=== PATIENT | female | born 1935 | race African-American/Black ===

== ENCOUNTER 2017-02-17 05:46 | Emergency (ER) | payer MEDICARE, MEDICAID ==
--- NOTE | 2017-02-17 07:14 | ER Document Report ---
ED General - General Chief Complaint: Headache Stated Complaint: HEADACHE Time Seen by Provider: 02/17/17 06:38 TRAVEL OUTSIDE OF THE [place] IN LAST 30 DAYS: No - HPI Patient complains to provider of: Headache Notes: Patient coming in for evaluation of a headache. Patient has a history of dementia and is on pain medication. Family states the patient received her pain medication prior to EMS transport during the transport patient states headache resolved. Denies any history of trauma. Patient denies any history of fevers chills nausea vomiting diarrhea. Upon my evaluation, states patient is otherwise baseline at this time. She is currently on antibiotic for UTI diagnosed at her PCPs office a few days prior to arrival - Related Data Allergies/Adverse Reactions: No Known Allergies Allergy (Unverified 02/07/15 09:40) Home Medications: Current Home Medications Apixaban [Eliquis 2.5 mg Tablet] 2.5 mg PO BID 02/17/17 [History] Furosemide [Lasix] 40 mg PO DAILY 02/17/17 [History] Montelukast Sodium 10 mg PO QPM 02/17/17 [History] Nitrofurantoin Monohyd/M-Cryst [Nitrofurantoin [place]-Mcr 100 mg] 1 cap PO Q12H [History] Tramadol HCl/Acetaminophen [Ultracet 37.5 mg/325 mg Tablet] 1 tab PO Q6H [History] Past Medical History - Social History Smoking Status: Former Smoker Chew tobacco use (# tins/day): No Frequency of alcohol use: None Drug Abuse: None Family History: Reviewed & Not Pertinent - Past Medical History Cardiac Medical History: Reports: Hx Atrial Fibrillation, Hx Congestive Heart Failure, Hx Hypertension GI Medical History: Reports: Hx Hiatal Hernia Musculoskeltal Medical History: Reports Hx Arthritis Psychiatric Medical History: Reports: Hx Dementia Past Surgical History: Reports: Hx Section - x2. Denies: Hx Mastectomy , Hx Open Heart Surgery, Hx Pacemaker - Immunizations Immunizations up to date: Yes Hx Diphtheria, Pertussis, Tetanus Vaccination: Yes Review of Systems - Review of Systems -: Yes ROS unobtainable due to patient's medical condition - Dementia Physical Exam - Vital signs Vitals: Temp Pulse Resp BP Pulse Ox 97.8 F 62 16 146/78 H 95 02/17/17 05:50 02/17/17 05:50 02/17/17 05:50 02/17/17 05:50 02/17/17 05:50 Interpretation: Normal - General General appearance: Appears well, Alert - HEENT Head: Normocephalic, Atraumatic Eyes: Normal Pupils: PERRL - Respiratory Respiratory status: No respiratory distress Chest status: Nontender Breath sounds: Normal Chest palpation: Normal - Cardiovascular Rhythm: Regular Heart sounds: Normal auscultation Murmur: No - Abdominal Inspection: Normal Distension: No distension Bowel sounds: Normal Tenderness: Nontender Organomegaly: No organomegaly - Back Back: Normal, Nontender - Extremities General upper extremity: Normal inspection, Nontender, Normal color, Normal ROM , Normal temperature General lower extremity: Normal inspection, Nontender, Normal color, Normal ROM , Normal temperature, Normal weight bearing. No: Joselin's sign - Neurological Neuro grossly intact: Yes Cognition: Normal, Confused Bradley Coma Scale Eye Opening: Spontaneous Kelsy Coma Scale Verbal: Confused Kelsy Coma Scale Motor: Obeys Commands Bradley Coma Scale Total: 14 Speech: Normal Motor strength normal: LUE, RUE, LLE, RLE Sensory: Normal - Psychological Associated symptoms: Normal affect, Normal mood - Skin Skin Temperature: Warm Skin Moisture: Dry Skin Color: Normal Course - Re-evaluation Re-evalutation: 02/17/17 14:34 The patient presents with headache without signs of LABELING SPECIALIST bleed, stroke, infection , or other serious etiology. The patient is neurologically intact. Given the extremely low risk of these diagnoses further testing and evaluation for these possibilities does not appear to be indicated at this time. The patient has been instructed to return if the symptoms worsen or change in any way.. Patient examination otherwise normal patient has not had any pain stating that she had a headache since she has been here patient was observed no need for any further workup patient was discharged - Vital Signs Vital signs: Temp Pulse Resp BP Pulse Ox 97.9 F 65 20 124/65 97 02/17/17 07:38 02/17/17 07:38 02/17/17 07:38 02/17/17 07:38 02/17/17 07:38 Discharge - Discharge Clinical Impression: Headache Qualifiers: Headache type: unspecified Headache chronicity pattern: unspecified pattern Intractability: not intractable Qualified Code(s): R51 - Headache Condition: Good Disposition: HOME, SELF-CARE Instructions: Headache ([facility]) Additional Instructions: Please continue to take her home medications as prescribed. Follow-up with your doctor Referrals: KEVIN BRANNON MD [Primary Care Provider] - Follow up as needed
[2017-02-17 07:39] VITALS: BP 124/65
== END 2017-02-17 07:40 | disposition home or self-care (01) ==
LOC: ER 05:46
DX: R51 Headache (principal); Z79.899 Other long term (current) drug therapy; Z87.891 Personal history of nicotine dependence
CPT/HCPCS: 99283

== ENCOUNTER 2017-02-18 08:31 | Inpatient (IN) | payer MEDICARE, MEDICAID ==
[2017-02-18] MEDS ORDERED: ASPIRIN 300 MG SUPP, RECTAL PR ONE (08:48)
--- NOTE | 2017-02-18 08:57 | ER Document Report ---
ED Cardiac - General Chief Complaint: Shortness Of Breath Stated Complaint: DIFFICULTY BREATHING Time Seen by Provider: 02/18/17 08:43 Mode of Arrival: Medic Information source: Relative Notes: Is an 81-year-old female with atrial fibrillation who presents to the ER today for shortness of breath, respiratory distress brought in by EMS. Patient started having shortness of breath at 4:30 AM this morning. Daughter found her this morning having breathing difficulty with white foam coming out of her mouth and nose. Patient has no history of seizures and denies having seizure during the night. Patient was seen here yesterday for headache, it is unclear if this is related. Patient is still complaining of mild headache to the front and back of her head. She also states that she had some left arm pain 3 days ago but denies any other symptoms with that and says that that is resolved at this time. She does not have any history of asthma, COPD, CHF per daughter. She is not on any breathing treatments, inhalers or oxygen at home usually. She has never had a heart attack or stroke. EMS picked her up to 83% on room air. She denies chest pain, abdominal pain or anywhere else other than the head. Family denies that she has had fever. TRAVEL OUTSIDE OF THE [place] IN LAST 30 DAYS: No - Related Data Allergies/Adverse Reactions: No Known Allergies Allergy (Unverified 02/07/15 09:40) Past Medical History - General Information source: Patient - Social History Smoking Status: Former Smoker Family History: Reviewed & Not Pertinent - Past Medical History Cardiac Medical History: Reports: Hx Atrial Fibrillation, Hx Congestive Heart Failure, Hx Hypertension GI Medical History: Reports: Hx Hiatal Hernia Musculoskeltal Medical History: Reports Hx Arthritis Psychiatric Medical History: Reports: Hx Dementia Past Surgical History: Reports: Hx Section - x2. Denies: Hx Mastectomy , Hx Open Heart Surgery, Hx Pacemaker - Immunizations Immunizations up to date: Yes Hx Diphtheria, Pertussis, Tetanus Vaccination: Yes Review of Systems - Review of Systems Constitutional: See HPI. denies: Chills, Fever EENT: No symptoms reported Cardiovascular: No symptoms reported Respiratory: See HPI Gastrointestinal: No symptoms reported Genitourinary: No symptoms reported Female Genitourinary: No symptoms reported Musculoskeletal: No symptoms reported Skin: No symptoms reported Hematologic/Lymphatic: No symptoms reported Neurological/Psychological: See HPI Physical Exam - Vital signs Vitals: Resp 25 H 02/18/17 08:34 - Notes Notes: PHYSICAL EXAMINATION: GENERAL: In respiratory distress, on CPAP HEAD: Atraumatic, normocephalic. EYES: Pupils equal round and reactive to light, extraocular movements intact, sclera anicteric, conjunctiva are normal. ENT: nares patent, oropharynx clear without exudates. Moist mucous membranes. Airway patent NECK: Normal range of motion, supple without lymphadenopathy LUNGS: Rales throughout, working harder to breathe, using accessory muscles, no wheezes or rhonchi. HEART: Tachycardia with regular rhythm without murmurs ABDOMEN: Soft, no tenderness. No guarding, no rebound EXTREMITIES: Normal range of motion, no pitting edema. No cyanosis. NEUROLOGICAL: Cranial nerves grossly intact. Normal sensory/motor exams. SKIN: Warm, Dry, normal turgor, very large stage II pressure ulcer to the entire buttocks and posterior thighs Course - Re-evaluation Re-evalutation: 02/18/17 13:01 Dr. Hall called to admit pt for sepsis, awaiting callback. I believe pt may have aspirated in her sleep and may have aspiration pneumonia due to daughter stating that with foam coming out of her nose and mouth when she found her. Chest x-ray revealed no acute abnormality, EKG did have some ST depression , possibly from demand ischemia, ABG revealed a normal pH, patient doing better on BiPAP with a pulse in the low 100s now instead of 128 when she came in. Her abdomen is nontender. She received rectal Tylenol for her fever of 101F rectally. 02/18/17 13:13 Dr. Hall agrees to admit pt at this time for sepsis with WBC of 20.5, lactic of 2.4 and other labs noted above. 02/18/17 14:07 troponin is 0.4, Dr. Paul and myself believe that this is just demand ischemia as she came in in respiratory distress and denies any chest pain. Her initial EKG revealed some ST depression, but repeat EKG that was just performed does not have any ST depression and looks much better. I believe the next troponin will be lower as this was likely demand ischemia as mentioned. - Vital Signs Vital signs: Temp Pulse Resp BP Pulse Ox 101 F H 120 H 22 H 132/98 H 100 02/18/17 09:50 02/18/17 08:36 02/18/17 15:03 02/18/17 14:00 02/18/17 15:03 - Laboratory Result Diagrams: 02/18/17 11:45 02/18/17 12:28 Laboratory results interpreted by me: 02/18/17 02/18/17 02/18/17 09:55 10:04 11:45 WBC 20.9 H Hgb 15.7 H Hct 47.6 H MCV 99 H RDW 14.1 H Band Neutrophils % 6 H Abs Neuts (Manual) 16.3 H Carbonic Acid 0.99 L ABG pCO2 32.8 L ABG pO2 191.3 H ABG O2 Saturation 99.4 H Sodium Chloride BUN Glucose Lactic Acid Calcium Creatine Kinase NT-Pro-B Natriuret Pep Urine Protein 100 H Urine Ketones 20 H Urine Blood LARGE H 02/18/17 02/18/17 02/18/17 11:45 12:28 12:28 WBC Hgb Hct MCV RDW Band Neutrophils % Abs Neuts (Manual) Carbonic Acid ABG pCO2 ABG pO2 ABG O2 Saturation Sodium 146.2 H Chloride 108 H BUN 23 H Glucose 123 H Lactic Acid 2.4 H Calcium 11.0 H Creatine Kinase 192 H NT-Pro-B Natriuret Pep 1040 H Urine Protein Urine Ketones Urine Blood Critical Care Note - Critical Care Note Total time excluding time spent on procedures (mins): 45 - 45 minutes spent in critical care time with patient, consulted with attending, speaking with family , placing orders and evaluating tests and labs. Discharge - Discharge Clinical Impression: Respiratory distress Sepsis Qualifiers: Sepsis type: sepsis due to unspecified organism Qualified Code(s): A41.9 - Sepsis, unspecified organism Condition: Stable Disposition: ADMITTED INPATIENT Admitting Provider: [facility] Unit Admitted: [facility]
--- NOTE | 2017-02-18 09:16 | RADIOLOGY REPORT (SQ) ---
EXAM DESCRIPTION: CHEST SINGLE VIEW COMPLETED DATE/TIME: 02/18/2017 9:08 am REASON FOR STUDY: sob, ST depressions COMPARISON: 08/21/2015 EXAM PARAMETERS: NUMBER OF VIEWS: One view. TECHNIQUE: Single frontal radiographic view of the chest acquired. RADIATION DOSE: NA LIMITATIONS: None. FINDINGS: LUNGS AND PLEURA: Stable dependent subsegmental atelectasis and/ or scarring at the left g reater than right lung base. No new airspace disease, pleural effusion, or pneumothorax. MEDIASTINUM AND HILAR STRUCTURES: No masses. Contour normal. HEART AND VASCULAR STRUCTURES: Heart normal in size. Normal vasculature. BONES: No acute findings. HARDWARE: Stable. OTHER: No other significant finding. IMPRESSION: NO ACUTE CARDIOPULMONARY PROCESS. NO SIGNIFICANT CHANGE FROM PRIOR STUDY. TECHNICAL DOCUMENTATION: JOB ID: [id number]
[2017-02-18] MEDS ORDERED: NORMAL SALINE 1000 ML 1,000 ML IV ONE (09:56)
[2017-02-18] MEDS ORDERED: PIPERACILLIN/TAZOBACTAM 3.375 GM VIAL IV ONE (09:56)
[2017-02-18 10:26] LABS: ARTERIAL BLOOD BASE EXCESS -1.9 mmol/L; ARTERIAL BLOOD O2 SATURATION 99.4 % (94-98)
[2017-02-18 11:04] LABS: APPEARANCE,URINE SLIGHTLY-CLOUDY; BILIRUBIN,URINE NEGATIVE (NEGATIVE); GLUCOSE, URINE NEGATIVE (NEGATIVE); KETONES,URINE 20 mg/dL (NEGATIVE); LEUKOCYTE ESTERASE,URINE NEGATIVE (NEGATIVE); NITRITE,URINE NEGATIVE (NEGATIVE); PROTEIN,URINE 100 mg/dL (NEGATIVE); URINE SPECIFIC GRAVITY 1.027; UROBILINOGEN,URINE NEGATIVE mg/dL (<2.0)
[2017-02-18] MEDS: ACETAMINOPHEN 650 MG SUPP.RECT PR ONE (11:30)
[2017-02-18 12:08] LABS: HEMATOCRIT 47.6 % (36.0-47.0); HEMOGLOBIN 15.7 g/dL (12.0-15.5); HGB HCT DIFFERENCE -0.5; MEAN CORPUSCULAR HEMOGLOBIN 32.5 pg (27.0-33.4); MEAN CORPUSCULAR HGB CONC 32.9 g/dL (32.0-36.0); MEAN CORPUSCULAR VOLUME 99 fl (80-97); RED BLOOD COUNT 4.82 10^6/uL (3.72-5.28); RED CELL DISTRIBUTION WIDTH 14.1 % (11.5-14.0); WHITE BLOOD COUNT 20.9 10^3/uL (4.0-10.5)
[2017-02-18 12:22] LABS: BAND NEUTROPHILS % (MANUAL) 6 % (3-5); BASOPHILS % (MANUAL) 0 % (0-2); EOSINOPHILS % (MANUAL) 0 % (0-6); LYMPHOCYTES % (MANUAL) 18 % (13-45); TOTAL CELLS COUNTED 100
[2017-02-18 12:24] LABS: BURR CELLS SLIGHT; OVALOCYTES SLIGHT; POIKILOCYTOSIS 1+
[2017-02-18 12:57] LABS: ALANINE AMINOTRANSFERASE 23 U/L (9-52); ALKALINE PHOSPHATASE 94 U/L (38-126); ANION GAP 15 (5-19); ASPARTATE AMINO TRANSFERASE 32 U/L (14-36); BILIRUBIN,DIRECT 0.4 mg/dL (0.0-0.4); BILIRUBIN,TOTAL 0.9 mg/dL (0.2-1.3); BLOOD UREA NITROGEN 23 mg/dL (7-20); CARBON DIOXIDE 23 mmol/L (22-30); CHLORIDE 108 mmol/L (98-107); CREATINE KINASE 192 U/L (30-135); GLUCOSE 123 mg/dL (75-110); POTASSIUM 3.6 mmol/L (3.6-5.0); SODIUM 146.2 mmol/L (137-145)
[2017-02-18] MEDS ORDERED: LEVOFLOXACIN 500 MG/D5W RTU 100 ML IV ONE (13:00)
[2017-02-18 13:20] LABS: CREATINE KINASE MB 2.65 ng/mL (<4.55)
[2017-02-18 13:26] LABS: TROPONIN I 0.486 ng/mL
--- NOTE | 2017-02-18 13:28 | RADIOLOGY REPORT (SQ) ---
EXAM DESCRIPTION: CT HEAD WITHOUT COMPLETED DATE/TIME: 02/18/2017 1:20 pm REASON FOR STUDY: headache, sepsis COMPARISON: 10/11/2014 TECHNIQUE: Axial images acquired through the brain without intravenous contrast. Images reviewed wi th bone, brain and subdural windows. Images stored on PACS. All CT scanners at this facility use dose modulation, iterative reconstruction, and/or weight based d osing when appropriate to reduce radiation dose to as low as reasonably achievable (ALARA). [facility]: Dose Right [facility]: CareDose [facility]: Dose Right [facility]: Teradose 4D [facility]: [employer] RADIATION DOSE: 129.22mGy. LIMITATIONS: None. FINDINGS: VENTRICLES: Prominent. CEREBRUM: No masses. No hemorrhage. No midline shift. Areas of low density in the white matter mos t likely due to chronic micro-vascular ischemic change. No evidence for acute infarction. CEREBELLUM: No masses. No hemorrhage. No alteration of density. No evidence for acute infarction. EXTRAAXIAL SPACES: Age-related involutional change. No fluid collections. No masses. ORBITS AND GLOBE: No intra- or extraconal masses. Normal contour of globe without masses. CALVARIUM: No fracture. PARANASAL SINUSES: No fluid or mucosal thickening. SOFT TISSUES: No mass or hematoma. OTHER: No other significant finding. IMPRESSION: NO ACUTE INTRACRANIAL PROCESS. NO SIGNIFICANT CHANGE FROM PRIOR STUDY. TECHNICAL DOCUMENTATION: JOB ID: [id number] Quality ID # [id number]: Final reports with documentation of one or more dose reduction techniques (e.g., Au tomated exposure control, adjustment of the mA and/or kV according to patient size, use of iterative reconstruction technique) 2010 [employer]- All Rights Reserved
[2017-02-18] MEDS ORDERED: DOCUSATE SODIUM 100 MG CAPSULE PO PRN (16:19)
[2017-02-18 16:48] LABS: PROTHROMBIN TIME 16.9 SEC (11.4-15.4)
[2017-02-18 16:49] LABS: PARTIAL THROMBOPLASTIN TIME 30.4 SEC (23.5-35.8)
[2017-02-18] MEDS ORDERED: METOPROLOL SUCCINATE 50 MG TAB.SR.24H PO ONE (17:00)
--- NOTE | 2017-02-18 17:27 | RADIOLOGY REPORT (SQ) ---
EXAM DESCRIPTION: CT CHEST WITHOUT COMPLETED DATE/TIME: 02/18/2017 5:04 pm REASON FOR STUDY: sepsis COMPARISON: Chest radiographs 02/18/[address] 10/13/2014 TECHNIQUE: CT scan performed of the chest without intravenous contrast. Images reviewed with lung, soft tissue and bone windows. Reconstructed coronal and sagittal MPR images reviewed. All images st ored on PACS. All CT scanners at this facility use dose modulation, iterative reconstruction, and/or weight based d osing when appropriate to reduce radiation dose to as low as reasonably achievable (ALARA). [facility]: Dose Right [facility]: CareDose [facility]: Dose Right [facility]: Teradose 4D [facility]: [employer] RADIATION DOSE: 13.99 mGy. LIMITATIONS: No technical limitations. FINDINGS: LUNGS AND PLEURA: Left lower lobe consolidation. Trace dependent atelectasis on the right . No pleural effusion. No pneumothorax. HILAR AND MEDIASTINAL STRUCTURES: 5.5 x 4.9 x 7.8 cm right paratracheal mass shifting the trachea to the left; this appears to be on the basis of a greatly expanded right thyroid lobe. Precarinal lymph node measures up to 9 mm in the short axis. HEART AND VASCULAR STRUCTURES: No aneurysm. No pericardial effusion. UPPER ABDOMEN: Small hiatal hernia. No significant findings. Limited exam. THYROID AND OTHER SOFT TISSUES: Right thyroid mass as detailed above. No adenopathy. BONES: No significant finding. HARDWARE: None in the chest. OTHER: No other significant findings. IMPRESSION: 1. Left lower lobe consolidation. In the appropriate clinical setting, this may repres ent lobar pneumonia. 2. Re- demonstration of a right thyroid mass, which appears similar to that seen on 10/13/2014 CT imag ing. TECHNICAL DOCUMENTATION: JOB ID: [id number] Quality ID # [id number]: Final reports with documentation of one or more dose reduction techniques (e.g., Au tomated exposure control, adjustment of the mA and/or kV according to patient size, use of iterative reconstruction technique) 2010 [employer]- All Rights Reserved
[2017-02-18] MEDS ORDERED: LEVOFLOXACIN 500 MG/D5W RTU 500 MG/100 ML RTUPB IV ONE (17:35)
[2017-02-18] MEDS: APIXABAN 2.5 MG TABLET PO SCH (17:48)
[2017-02-18] MEDS: MEGESTROL ACETATE 20 MG TABLET PO SCH (17:51)
[2017-02-18] MEDS ORDERED: AMPICILLIN SODIUM/SULBACTAM NA 3 GM in NORMAL SALINE 100 ML IV SCH (18:00)
[2017-02-18 18:13] LABS: ALANINE AMINOTRANSFERASE 36 U/L (9-52); ALBUMIN 3.7 g/dL (3.5-5.0); ALKALINE PHOSPHATASE 84 U/L (38-126); AMYLASE 175 U/L (30-110); ASPARTATE AMINO TRANSFERASE 22 U/L (14-36); BILIRUBIN,DIRECT 0.4 mg/dL (0.0-0.4); BILIRUBIN,TOTAL 0.8 mg/dL (0.2-1.3); LIPASE 458.5 U/L (23-300); PHOSPHORUS 3.5 mg/dL (2.5-4.5); TOTAL PROTEIN 7.2 g/dL (6.3-8.2)
[2017-02-18 18:29] LABS: CREATINE KINASE MB 2.22 ng/mL (<4.55)
[2017-02-18 18:36] LABS: TROPONIN I 0.281 ng/mL
[2017-02-18 18:47] LABS: THYROID STIMULATING HORMONE 0.24 uIU/mL (0.47-4.68)
[2017-02-18 19:49] LABS: URINE BARBITURATES SCREEN NEGATIVE; URINE METHADONE SCREEN NEGATIVE; URINE OPIATES LOW NEGATIVE; URINE PHENCYCLIDINE SCREEN NEGATIVE
[2017-02-18] MEDS: DONEPEZIL HCL 5 MG TABLET PO SCH (21:08)
[2017-02-18] MEDS: ALPRAZOLAM 0.5 MG TABLET PO SCH (21:09)
[2017-02-18] MEDS ORDERED: CEFEPIME 1 GM/D5W RTU 50 ML IV SCH (22:00)
[2017-02-19] MEDS: LEVOFLOXACIN 750 MG/D5W RTU 750 MG/150 ML RTUPB IV SCH ×2 (00:02→23:46)
[2017-02-19] MEDS: TRAMADOL HCL 50 MG TABLET PO SCH ×5 (00:05→23:48)
[2017-02-19] MEDS ORDERED: CEFEPIME 1 GM/D5W RTU 1 GM/50 ML RTUPB IV ONE (00:10)
[2017-02-19 01:00] LABS: CREATINE KINASE MB 1.73 ng/mL (<4.55); TROPONIN I 0.19 ng/mL
[2017-02-19 06:11] LABS: ABSOLUTE EOSINOPHILS # (AUTO) 0.1 10^3/uL (0.0-0.6); ABSOLUTE LYMPHOCYTES (AUTO) 3.6 10^3/uL (0.5-4.7); ABSOLUTE MONOCYTES (AUTO) 1.1 10^3/uL (0.1-1.4); ABSOLUTE NEUT (AUTO) 11.4 10^3/uL (1.7-8.2); BASOPHILS % (AUTO) 0.3 % (0-2); EOSINOPHILS % (AUTO) 0.4 % (0-6); HEMATOCRIT 36.5 % (36.0-47.0); HGB HCT DIFFERENCE -0.2; LYMPHOCYTES % (AUTO) 22.4 % (13-45); MEAN CORPUSCULAR HEMOGLOBIN 32.4 pg (27.0-33.4); MEAN CORPUSCULAR HGB CONC 33.1 g/dL (32.0-36.0); MEAN CORPUSCULAR VOLUME 98 fl (80-97); MONOCYTES % (AUTO) 6.5 % (3-13); RED BLOOD COUNT 3.73 10^6/uL (3.72-5.28); RED CELL DISTRIBUTION WIDTH 13.5 % (11.5-14.0); SEGMENTED NEUTROPHILS % (AUTO) 70.4 % (42-78); WHITE BLOOD COUNT 16.2 10^3/uL (4.0-10.5)
[2017-02-19 06:18] LABS: HEMOGLOBIN 12.1 g/dL (12.0-15.5)
[2017-02-19 06:24] LABS: ANION GAP 10 (5-19); BLOOD UREA NITROGEN 21 mg/dL (7-20); CALCIUM 9.9 mg/dL (8.4-10.2); CARBON DIOXIDE 20 mmol/L (22-30); CHLORIDE 111 mmol/L (98-107); CREATINE KINASE 147 U/L (30-135); CREATININE RESULT 0.47 mg/dL (0.52-1.25); GLUCOSE 90 mg/dL (75-110); POTASSIUM 3.7 mmol/L (3.6-5.0); SODIUM 141.4 mmol/L (137-145)
[2017-02-19] MEDS: APIXABAN 2.5 MG TABLET PO SCH ×2 (06:27→17:59)
[2017-02-19] MEDS: ALPRAZOLAM 0.5 MG TABLET PO SCH ×3 (06:28→21:40)
[2017-02-19 06:36] LABS: CREATINE KINASE MB 1.26 ng/mL (<4.55); TROPONIN I 0.142 ng/mL
[2017-02-19] MEDS: MEGESTROL ACETATE 20 MG TABLET PO SCH ×2 (09:57→18:00)
[2017-02-19] MEDS: METOPROLOL SUCCINATE 50 MG TAB.SR.24H PO SCH (09:57)
[2017-02-19] MEDS: CEFEPIME HCL 1 GM in DEXTROSE 5%-WATER 50 ML IV SCH ×2 (09:58→21:39)
[2017-02-19] MEDS: NORMAL SALINE 1000 ML 1,000 ML IV PRN (09:59)
--- NOTE | 2017-02-19 11:47 | PDOC H&P ---
History of Present Illness Admission Date/PCP: 02/18/17 16:07 KEVIN BRANNON MD History of Present Illness: MAGDALENO NAVAS is a 81 year old female with a history of dementia, she presented to the emergency room for evaluation of shortness of breath, respiratory distress ,family stated that patient was having shortness of breath associated with white foam coming out of her mouth and nose. She has no history of seizure , she was seen in the emergency room yesterday for evaluation of headache, CT head was done and it was negative. Patient was transferred from home to the emergency room by EMS ,the oxygen saturation was 83% on room air. In the Emergency room chest x-ray was done and it was negative for any acute pathology.Hemogram showed leukocytosis, WBC was 20,000, there was lactic acidosis ,she also had fever with 101 temperature. The presentation was consistent with pneumonia though the chest x-ray did not suggest pneumonia, but because the presentation was consistent with pneumonia I requested for CT chest without contrast. 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 She has multiple comorbid conditions including chronic debilitation, chronic atrial fibrillation, sedentary life style. On examination on the floor she has sacral decubiti ulcer in various stages. when she arrived in the emergency room, the breathing was supported with noninvasive positive pressure ventilation, BiPAP machine, she was still requiring the device when she arrived in intermediate care unit. Past Medical History Cardiac Medical History: Reports: Atrial Fibrillation, Hypertension GI Medical History: Reports: Hiatal Hernia Musculoskeltal Medical History: Reports: Arthritis Psychiatric Medical History: Reports: Dementia Past Surgical History Past Surgical History: Reports: Section - x2 Social History Smoking Status: Former Smoker Frequency of Alcohol Use: None Hx Recreational Drug Use: No Hx Prescription Drug Abuse: No - Advance Directive Resuscitation Status: Full Code Family History Family History: Reviewed & Not Pertinent Parental Family History Reviewed: Yes Children Family History Reviewed: Yes Sibling(s) Family History Reviewed.: Yes Medication/Allergy Home Medications: Alprazolam [Xanax 0.5 mg Tablet] 0.5 mg PO TID 02/18/17 Apixaban [Eliquis 2.5 mg Tablet] 2.5 mg PO Q12 02/18/17 Dexlansoprazole [Dexilant 30 mg Capsule] 30 mg PO DAILY 02/18/17 Diclofenac Sodium [Voltaren] 4 gm TP ASDIR PRN 02/18/17 Docusate Sodium [Dok] 100 mg PO DAILYP PRN 02/18/17 Donepezil HCl [Aricept] 10 mg PO QHS 02/18/17 Ketotifen Fumarate [Zaditor] 5 ml OP BID 02/18/17 Loratadine [Claritin 10 mg Tablet] 10 mg PO DAILY 02/18/17 Megestrol Acetate 40 mg PO BID 02/18/17 Metoprolol Succinate [Toprol Xl 50 mg Tab.sr] 50 mg PO DAILY 02/18/17 Mirtazapine [Remeron] 30 mg PO QHS 02/18/17 Montelukast Sodium [Singulair 10 mg Tablet] 10 mg PO QHS 02/18/17 Nitrofurantoin Monohyd/M-Cryst [Nitrofurantoin Real-Mcr 100 mg] 100 mg PO Q12 Tramadol HCl/Acetaminophen [Tramadol-Acetaminophn 37.5-325] 1 tab PO Q6 Allergies/Adverse Reactions: No Known Allergies Allergy (Unverified 02/07/15 09:40) Review of Systems ROS unobtainable: Other - She has dementia, she just yells scream, difficult to obtain any reasonable history from the patient Physical Exam Vital Signs: Temp Pulse Resp BP Pulse Ox 98.4 F 80 20 115/70 100 02/19/17 08:38 02/19/17 08:38 02/19/17 08:38 02/19/17 08:38 02/19/17 08:38 Intake & Output 02/18/17 02/19/17 02/20/17 06:59 06:59 06:59 Intake Total 1200 Output Total 325 Balance 875 Weight 74.6 kg General appearance: PRESENT: severe distress Eye exam: PRESENT: PERRLA Neck exam: PRESENT: thyromegaly, tracheal deviation Respiratory exam: PRESENT: crackles Cardiovascular exam: PRESENT: +S1, +S2 GI/Abdominal exam: PRESENT: soft Extremities exam: PRESENT: other - There Is sacral decubital ulcer in various stages ,stage 1 and 2 Musculoskeletal exam: PRESENT: other - There is muscle atrophy of the lower extremities Neurological exam: PRESENT: alert, CN II-XII grossly intact Psychiatric exam: PRESENT: agitated Skin exam: PRESENT: erythema - The skin of the buttock Results Laboratory Results: 02/19/17 06:04 02/19/17 06:04 02/18/17 02/18/17 02/18/17 16:27 16:27 17:18 WBC RBC Hgb Hct MCV MCH MCHC RDW Plt Count Seg Neutrophils % Lymphocytes % Monocytes % Eosinophils % Basophils % Absolute Neutrophils Absolute Lymphocytes Absolute Monocytes Absolute Eosinophils Absolute Basophils Sodium Potassium Chloride Carbon Dioxide Anion Gap BUN Creatinine Est GFR ( Amer) Est GFR (Non-Af Amer) Glucose Lactic Acid 2.4 H Calcium Phosphorus Cancelled Total Bilirubin Cancelled AST Cancelled ALT Cancelled Alkaline Phosphatase Cancelled Total Protein Cancelled Albumin Cancelled Amylase Cancelled Lipase Cancelled TSH 0.24 L Free T4 1.10 02/18/17 02/19/17 02/19/17 17:18 06:04 06:04 WBC 16.2 H RBC 3.73 Hgb 12.1 D Hct 36.5 MCV 98 H MCH 32.4 MCHC 33.1 RDW 13.5 Plt Count 263 Seg Neutrophils % 70.4 Lymphocytes % 22.4 Monocytes % 6.5 Eosinophils % 0.4 Basophils % 0.3 Absolute Neutrophils 11.4 H Absolute Lymphocytes 3.6 Absolute Monocytes 1.1 Absolute Eosinophils 0.1 Absolute Basophils 0.0 Sodium 141.4 Potassium 3.7 Chloride 111 H Carbon Dioxide 20 L Anion Gap 10 BUN 21 H Creatinine 0.47 L Est GFR ( Amer) > 60 Est GFR (Non-Af Amer) > 60 Glucose 90 Lactic Acid Calcium 9.9 Phosphorus 3.5 Total Bilirubin 0.8 AST 22 ALT 36 Alkaline Phosphatase 84 Total Protein 7.2 Albumin 3.7 Amylase 175 H Lipase 458.5 H TSH Free T4 02/18/17 02/18/17 02/18/17 17:18 17:18 23:40 Creatine Kinase 200 H 172 H CK-MB (CK-2) 2.22 Troponin I 0.281 02/18/17 02/19/17 02/19/17 23:40 06:04 06:04 Creatine Kinase 147 H CK-MB (CK-2) 1.73 1.26 Troponin I 0.190 0.142 Impressions: Chest CT 02/18/17 00:00 IMPRESSION: 1. Left lower lobe consolidation. In the appropriate clinical setting, this may represent lobar pneumonia. 2. Re- demonstration of a right thyroid mass, which appears similar to that seen on 10/13/2014 CT imaging. Chest X-Ray 02/18/17 08:45 IMPRESSION: NO ACUTE CARDIOPULMONARY PROCESS. NO SIGNIFICANT CHANGE FROM PRIOR STUDY. Head CT 02/18/17 11:55 IMPRESSION: NO ACUTE INTRACRANIAL PROCESS. NO SIGNIFICANT CHANGE FROM PRIOR STUDY. Assessment & Plan - Diagnosis (1) Acute hypoxemic respiratory failure Is this a current diagnosis for this admission?: YesPlan: Patient presented with acute hypoxemic respiratory failure due to combination of left lower lobe pneumonia and thyroid mass compressing and shifting the trachea. She will continue the noninvasive positive pressure ventilation with BiPAP machine. (2) Left lower lobe pneumonia Qualifiers: Pneumonia type: due to unspecified organism Qualified Code(s): J18.1 - Lobar pneumonia, unspecified organism Is this a current diagnosis for this admission?: YesPlan: She has pneumonia, patient will be covered with dual antibiotic, IV cefepime and IV Levaquin to cover potential community-acquired pathogens that causes pneumonia. 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
--- NOTE | 2017-02-19 11:56 | PDOC PROGRESS REPORT ---
Subjective Progress Note for:: 02/19/17 Subjective:: Patient was seen by the bedside, she was admitted yesterday for pneumonia associated acute hypoxemic respiratory failure. She also had elevated troponin this is most likely related to the pneumonia and sepsis I had a discussion with the daughter about patient's condition. Physical Exam Vital Signs: Temp Pulse Resp BP Pulse Ox 98.4 F 80 20 115/70 100 02/19/17 08:38 02/19/17 08:38 02/19/17 08:38 02/19/17 08:38 02/19/17 08:38 Intake & Output 02/18/17 02/19/17 02/20/17 06:59 06:59 06:59 Intake Total 1200 Output Total 325 Balance 875 Weight 74.6 kg General appearance: PRESENT: no acute distress Eye exam: PRESENT: PERRLA Respiratory exam: PRESENT: clear to auscultation danitza Cardiovascular exam: PRESENT: +S1, +S2 GI/Abdominal exam: PRESENT: soft Neurological exam: PRESENT: alert Results Laboratory Results: 02/19/17 06:04 02/19/17 06:04 02/18/17 02/18/17 02/18/17 16:27 16:27 17:18 WBC RBC Hgb Hct MCV MCH MCHC RDW Plt Count Seg Neutrophils % Lymphocytes % Monocytes % Eosinophils % Basophils % Absolute Neutrophils Absolute Lymphocytes Absolute Monocytes Absolute Eosinophils Absolute Basophils Sodium Potassium Chloride Carbon Dioxide Anion Gap BUN Creatinine Est GFR ( Amer) Est GFR (Non-Af Amer) Glucose Lactic Acid 2.4 H Calcium Phosphorus Cancelled Total Bilirubin Cancelled AST Cancelled ALT Cancelled Alkaline Phosphatase Cancelled Total Protein Cancelled Albumin Cancelled Amylase Cancelled Lipase Cancelled TSH 0.24 L Free T4 1.10 02/18/17 02/19/17 02/19/17 17:18 06:04 06:04 WBC 16.2 H RBC 3.73 Hgb 12.1 D Hct 36.5 MCV 98 H MCH 32.4 MCHC 33.1 RDW 13.5 Plt Count 263 Seg Neutrophils % 70.4 Lymphocytes % 22.4 Monocytes % 6.5 Eosinophils % 0.4 Basophils % 0.3 Absolute Neutrophils 11.4 H Absolute Lymphocytes 3.6 Absolute Monocytes 1.1 Absolute Eosinophils 0.1 Absolute Basophils 0.0 Sodium 141.4 Potassium 3.7 Chloride 111 H Carbon Dioxide 20 L Anion Gap 10 BUN 21 H Creatinine 0.47 L Est GFR ( Amer) > 60 Est GFR (Non-Af Amer) > 60 Glucose 90 Lactic Acid Calcium 9.9 Phosphorus 3.5 Total Bilirubin 0.8 AST 22 ALT 36 Alkaline Phosphatase 84 Total Protein 7.2 Albumin 3.7 Amylase 175 H Lipase 458.5 H TSH Free T4 02/18/17 02/18/17 02/18/17 17:18 17:18 23:40 Creatine Kinase 200 H 172 H CK-MB (CK-2) 2.22 Troponin I 0.281 02/18/17 02/19/17 02/19/17 23:40 06:04 06:04 Creatine Kinase 147 H CK-MB (CK-2) 1.73 1.26 Troponin I 0.190 0.142 Impressions: Chest CT 02/18/17 00:00 IMPRESSION: 1. Left lower lobe consolidation. In the appropriate clinical setting, this may represent lobar pneumonia. 2. Re- demonstration of a right thyroid mass, which appears similar to that seen on 10/13/2014 CT imaging. Chest X-Ray 02/18/17 08:45 IMPRESSION: NO ACUTE CARDIOPULMONARY PROCESS. NO SIGNIFICANT CHANGE FROM PRIOR STUDY. Head CT 02/18/17 11:55 IMPRESSION: NO ACUTE INTRACRANIAL PROCESS. NO SIGNIFICANT CHANGE FROM PRIOR STUDY. Assessment & Plan - Diagnosis (1) Acute hypoxemic respiratory failure Is this a current diagnosis for this admission?: Yes (2) Left lower lobe pneumonia Qualifiers: Pneumonia type: due to unspecified organism Qualified Code(s): J18.1 - Lobar pneumonia, unspecified organism Is this a current diagnosis for this admission?: Yes (3) Thyroid mass Is this a current diagnosis for this admission?: Yes (4) Dementia Qualifiers: Dementia type: Alzheimer's disease Alzheimer's disease onset: late- onset Dementia behavioral disturbance: with behavioral disturbance Qualified Code(s): G30.1 - Alzheimer's disease with late onset; F02.81 - Dementia in other diseases classified elsewhere with behavioral disturbance Is this a current diagnosis for this admission?: Yes (5) Decubitus ulcer of sacral region, stage 1 Is this a current diagnosis for this admission?: Yes (6) Chronic atrial fibrillation Is this a current diagnosis for this admission?: Yes (7) Elevated troponin Is this a current diagnosis for this admission?: YesPlan: This is related to sepsis and pneumonia (8) Sepsis Qualifiers: Sepsis type: sepsis due to unspecified organism Qualified Code(s): A41.9 - Sepsis, unspecified organism Is this a current diagnosis for this admission?: Yes - Plan Summary Plan Summary: She will continue IV antibiotic, oxygen via nasal cannula, consultation will be requested from surgery regarding the thyroid mass. She is not good candidate for surgery
--- NOTE | 2017-02-19 14:04 | CONSULTATION REPORT E ---
Consultation Report NAME: MAGDALENO NAVAS : 1935 AGE: 81Y DATE: 02/19/2017 ROOM: 321 B TO: KIRK CUTLER M.D. FROM: KEVIN BRANNON M.D. Requesting Physician REASON FOR CONSULTATION: Patient with a right thyroid mass, shifting the trachea to the left. HISTORY OF PRESENT ILLNESS: This is an 81-year-old female admitted for pneumonia and sepsis. She has a history of dementia, chronic debilitation, chronic A-fib, sacral decubitus, and noted right lower lobe pneumonia on CAT scan. 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 This apparently has been noted since 2014 with no apparent change in size. According to the daughter, the patient does not have any difficulty breathing other than when she was admitted yesterday with some foam in her mouth and she might have aspirated this, producing the pneumonia. Other than this episode, no difficulty breathing or shortness of breath. PAST MEDICAL HISTORY: 1. History of mild dementia. 2. Chronic A-fib. 3. Hypertension. 4. Hiatal hernia. 5. Arthritis. 6. Starting Alzheimer's. 7. Sacral decubitus. SOCIAL HISTORY: She used to smoke, but had stopped around age 41. Denies alcohol or drug use. PAST SURGICAL HISTORY: Two sections. ALLERGIES: None known. REVIEW OF SYSTEMS: Review of systems is quite limited, because most of it is given by the daughter, who claims she has neck pains and joint pains and in the past 2 weeks has been debilitated. She had, in the past, a history of urinary tract infection. No apparent constipation. The patient did have an episode of diarrhea about 4 days ago and this had subsided when given some [id number] medication by her daughter. Patient apparently has been bedridden and her daughter has been taking care of her for this. ALLERGIES: None known. PHYSICAL EXAMINATION: GENERAL: The patient is alert, but slow to respond. Appears to be oriented. NECK: She has pains on moving her neck. She did have discomfort just trying to take out the pillow from her neck, so I could examine her neck. The palpable right thyroid mass appears to be just slightly pushing the trachea to the left. LUNGS: Decreased breath sounds on the right side. HEART: Regular sinus rhythm. ABDOMEN: Soft and nontender. EXTREMITIES: No edema. DIAGNOSTIC DATA: A 5.5 x 4.9 x 7.2 cm right paratracheal mass, shifting the trachea to the left on a CAT scan. However, this has been the same as that seen in 10/13/2014. Her labs showed lactic acid 2.4. White count 16.2. She has sepsis from pneumonia. IMPRESSION: Right thyroid mass pushing the trachea to the left. However, this appears to be asymptomatic according to the patient and her daughter. She did have a history of left thyroid lobectomy done around 40 years ago. RECOMMENDATIONS: Since the mass apparently has not changed for just over 2 years, it is unlikely that it is malignant. Since the patient is asymptomatic with this mass and with her overall comorbidities and with the starting Alzheimer's, it is probably not necessary to further interrogate this mass and assess for malignancy. The main thing is to just observe it. If she develops stridor or difficulty breathing, then she may need a thyroidectomy. At this time, it is asymptomatic and this can be just observed. DICTATING PHYSICIAN: KIRK CUTLER M.D. [id number] PHY#: [id number] ID: [id number] JOB#: [id number] ACCT: [id number] cc:KIRK CUTLER M.D. >
--- NOTE | 2017-02-19 14:33 | RADIOLOGY REPORT (SQ) ---
EXAM DESCRIPTION: U/S THYROID/SFT TISS HD NECK COMPLETED DATE/TIME: 02/19/2017 2:22 pm REASON FOR STUDY: thyroid mass COMPARISON: 10/10/2011 TECHNIQUE: Dynamic and static mota-scale images acquired of the thyroid gland. Selected additional c olor/power Doppler images recorded. All images stored to PACS. LIMITATIONS: None. FINDINGS: RIGHT LOBE: Stable nodular enlargement of the right thyroid gland measuring 7.3 x 5.0 x 4 .3 cm. LEFT LOBE: Surgically absent. ISTHMUS: Stable nodule measuring 2.8 x 2.5 x 1.6 cm. OTHER: No other significant finding. IMPRESSION: STABLE NODULAR ENLARGEMENT OF THE RIGHT LOBE OF THE THYROID GLAND AND STABLE ISTHMUS NOD ULE. STATUS POST LEFT THYROIDECTOMY. TECHNICAL DOCUMENTATION: JOB ID: [id number] GIVTED- All Rights Reserved
[2017-02-19] MEDS: DONEPEZIL HCL 5 MG TABLET PO SCH (21:39)
[2017-02-19] MEDS: ACETAMINOPHEN 325 MG TABLET PO SCH (23:48)
[2017-02-20] MEDS: NORMAL SALINE 1000 ML 1,000 ML IV PRN (02:42)
[2017-02-20] MEDS: ACETAMINOPHEN 325 MG TABLET PO SCH ×4 (05:26→23:32)
[2017-02-20] MEDS: ALPRAZOLAM 0.5 MG TABLET PO SCH ×3 (05:27→21:36)
[2017-02-20] MEDS: TRAMADOL HCL 50 MG TABLET PO SCH ×4 (05:27→23:32)
[2017-02-20] MEDS: APIXABAN 2.5 MG TABLET PO SCH ×2 (05:28→17:40)
[2017-02-20 06:47] LABS: ABSOLUTE BASOPHILS # (AUTO) 0.2 10^3/uL (0.0-0.2); ABSOLUTE EOSINOPHILS # (AUTO) 0.3 10^3/uL (0.0-0.6); ABSOLUTE LYMPHOCYTES (AUTO) 4.8 10^3/uL (0.5-4.7); ABSOLUTE MONOCYTES (AUTO) 1.5 10^3/uL (0.1-1.4); ABSOLUTE NEUT (AUTO) 9.5 10^3/uL (1.7-8.2); EOSINOPHILS % (AUTO) 1.6 % (0-6); HEMATOCRIT 39.9 % (36.0-47.0); HEMOGLOBIN 12.9 g/dL (12.0-15.5); HGB HCT DIFFERENCE -1.2; LYMPHOCYTES % (AUTO) 29.7 % (13-45); MEAN CORPUSCULAR HEMOGLOBIN 32.3 pg (27.0-33.4); MEAN CORPUSCULAR HGB CONC 32.4 g/dL (32.0-36.0); MEAN CORPUSCULAR VOLUME 100 fl (80-97); MONOCYTES % (AUTO) 9.3 % (3-13); RED CELL DISTRIBUTION WIDTH 13.9 % (11.5-14.0); SEGMENTED NEUTROPHILS % (AUTO) 58.4 % (42-78); WHITE BLOOD COUNT 16.3 10^3/uL (4.0-10.5)
--- NOTE | 2017-02-20 09:27 | EKG REPORT ---
SEVERITY:- NORMAL ECG - SINUS RHYTHM : Confirmed by: Derrell Yung 20-Feb-2017 09:26:58
--- NOTE | 2017-02-20 09:28 | EKG REPORT ---
SEVERITY:- BORDERLINE ECG - SINUS TACHYCARDIA BORDERLINE ST DEPRESSION, ANTEROLATERAL LEADS : Confirmed by: Derrell Yung 20-Feb-2017 09:27:51
[2017-02-20] MEDS: CEFEPIME HCL 1 GM in DEXTROSE 5%-WATER 50 ML IV SCH ×2 (09:32→21:36)
[2017-02-20] MEDS: METOPROLOL SUCCINATE 50 MG TAB.SR.24H PO SCH (09:34)
[2017-02-20] MEDS: MEGESTROL ACETATE 20 MG TABLET PO SCH ×2 (09:35→17:42)
[2017-02-20 09:53] LABS: ANION GAP 15 (5-19); BLOOD UREA NITROGEN 13 mg/dL (7-20); CALCIUM 9.3 mg/dL (8.4-10.2); CARBON DIOXIDE 18 mmol/L (22-30); CHLORIDE 112 mmol/L (98-107); CREATININE RESULT 0.37 mg/dL (0.52-1.25); GLUCOSE 108 mg/dL (75-110); POTASSIUM 3.5 mmol/L (3.6-5.0); SODIUM 144.8 mmol/L (137-145)
--- NOTE | 2017-02-20 19:39 | PDOC PROGRESS REPORT ---
Subjective Progress Note for:: 02/20/17 Subjective:: She was admitted because of pneumonia, she was seen by the bedside Physical Exam Vital Signs: Temp Pulse Resp BP Pulse Ox 97.4 F 70 16 129/65 H 100 02/20/17 07:35 02/20/17 14:00 02/20/17 09:05 02/20/17 07:35 02/20/17 09:30 Intake & Output 02/19/17 02/20/17 02/21/17 06:59 06:59 06:59 Intake Total 1200 2614 1872 Output Total 325 1000 800 Balance 875 1614 1072 Weight 74.6 kg 78.3 kg General appearance: PRESENT: no acute distress Eye exam: PRESENT: PERRLA Respiratory exam: PRESENT: rhonchi Cardiovascular exam: PRESENT: +S1, +S2 GI/Abdominal exam: PRESENT: soft Neurological exam: PRESENT: alert, CN II-XII grossly intact Results Laboratory Results: 02/20/17 06:21 02/20/17 09:20 02/20/17 02/20/17 02/20/17 06:21 06:35 09:20 WBC 16.3 H RBC 4.00 Hgb 12.9 Hct 39.9 MCV 100 H MCH 32.3 MCHC 32.4 RDW 13.9 Plt Count 199 Seg Neutrophils % 58.4 Lymphocytes % 29.7 Monocytes % 9.3 Eosinophils % 1.6 Basophils % 1.0 Absolute Neutrophils 9.5 H Absolute Lymphocytes 4.8 H Absolute Monocytes 1.5 H Absolute Eosinophils 0.3 Absolute Basophils 0.2 Sodium Cancelled 144.8 Potassium Cancelled 3.5 L Chloride Cancelled 112 H Carbon Dioxide Cancelled 18 L Anion Gap Cancelled 15 BUN Cancelled 13 Creatinine Cancelled 0.37 L Est GFR ( Amer) Cancelled > 60 Est GFR (Non-Af Amer) Cancelled > 60 Glucose Cancelled 108 Calcium Cancelled 9.3 02/18/17 02/18/17 02/18/17 17:18 17:18 23:40 Creatine Kinase 200 H 172 H CK-MB (CK-2) 2.22 Troponin I 0.281 02/18/17 02/19/17 02/19/17 23:40 06:04 06:04 Creatine Kinase 147 H CK-MB (CK-2) 1.73 1.26 Troponin I 0.190 0.142 Impressions: Chest CT 02/18/17 00:00 IMPRESSION: 1. Left lower lobe consolidation. In the appropriate clinical setting, this may represent lobar pneumonia. 2. Re- demonstration of a right thyroid mass, which appears similar to that seen on 10/13/2014 CT imaging. Chest X-Ray 02/18/17 08:45 IMPRESSION: NO ACUTE CARDIOPULMONARY PROCESS. NO SIGNIFICANT CHANGE FROM PRIOR STUDY. Head CT 02/18/17 11:55 IMPRESSION: NO ACUTE INTRACRANIAL PROCESS. NO SIGNIFICANT CHANGE FROM PRIOR STUDY. Thyroid Ultrasound 02/19/17 00:00 IMPRESSION: STABLE NODULAR ENLARGEMENT OF THE RIGHT LOBE OF THE THYROID GLAND AND STABLE ISTHMUS NODULE. STATUS POST LEFT THYROIDECTOMY. Assessment & Plan - Diagnosis (1) Acute hypoxemic respiratory failure Is this a current diagnosis for this admission?: YesPlan: Continue oxygen via nasal cannula (2) Left lower lobe pneumonia Qualifiers: Pneumonia type: due to unspecified organism Qualified Code(s): J18.1 - Lobar pneumonia, unspecified organism Is this a current diagnosis for this admission?: YesPlan: Continue IV antibiotic (3) Thyroid mass Is this a current diagnosis for this admission?: Yes (4) Dementia Qualifiers: Dementia type: Alzheimer's disease Alzheimer's disease onset: late- onset Dementia behavioral disturbance: with behavioral disturbance Qualified Code(s): G30.1 - Alzheimer's disease with late onset; F02.81 - Dementia in other diseases classified elsewhere with behavioral disturbance Is this a current diagnosis for this admission?: Yes (5) Decubitus ulcer of sacral region, stage 1 Is this a current diagnosis for this admission?: Yes (6) Chronic atrial fibrillation Is this a current diagnosis for this admission?: Yes (7) Elevated troponin Is this a current diagnosis for this admission?: Yes (8) Sepsis Qualifiers: Sepsis type: sepsis due to unspecified organism Qualified Code(s): A41.9 - Sepsis, unspecified organism Is this a current diagnosis for this admission?: Yes
[2017-02-20] MEDS ORDERED: POTASSIUM CHLORIDE 10 MEQ TABLET.SA PO ONE (20:00)
[2017-02-20] MEDS: DONEPEZIL HCL 5 MG TABLET PO SCH (21:36)
[2017-02-20] MEDS: LEVOFLOXACIN 750 MG/D5W RTU 750 MG/150 ML RTUPB IV SCH (23:28)
[2017-02-21] MEDS: NORMAL SALINE 1000 ML 1,000 ML IV PRN (02:11)
[2017-02-21 05:35] LABS: ANION GAP 10 (5-19); BLOOD UREA NITROGEN 12 mg/dL (7-20); CALCIUM 9.7 mg/dL (8.4-10.2); CARBON DIOXIDE 22 mmol/L (22-30); CHLORIDE 112 mmol/L (98-107); GLUCOSE 80 mg/dL (75-110); POTASSIUM 4.2 mmol/L (3.6-5.0); SODIUM 144.1 mmol/L (137-145)
[2017-02-21 05:57] LABS: ABSOLUTE BASOPHILS # (AUTO) 0.1 10^3/uL (0.0-0.2); ABSOLUTE EOSINOPHILS # (AUTO) 0.2 10^3/uL (0.0-0.6); ABSOLUTE LYMPHOCYTES (AUTO) 3.9 10^3/uL (0.5-4.7); ABSOLUTE MONOCYTES (AUTO) 0.7 10^3/uL (0.1-1.4); ABSOLUTE NEUT (AUTO) 6.1 10^3/uL (1.7-8.2); BASOPHILS % (AUTO) 0.7 % (0-2); EOSINOPHILS % (AUTO) 1.9 % (0-6); HEMATOCRIT 34.1 % (36.0-47.0); HEMOGLOBIN 11.2 g/dL (12.0-15.5); HGB HCT DIFFERENCE -0.5; LYMPHOCYTES % (AUTO) 35.5 % (13-45); MEAN CORPUSCULAR HEMOGLOBIN 32.4 pg (27.0-33.4); MEAN CORPUSCULAR HGB CONC 32.8 g/dL (32.0-36.0); MEAN CORPUSCULAR VOLUME 99 fl (80-97); MONOCYTES % (AUTO) 6.6 % (3-13); RED BLOOD COUNT 3.45 10^6/uL (3.72-5.28); RED CELL DISTRIBUTION WIDTH 13.9 % (11.5-14.0); SEGMENTED NEUTROPHILS % (AUTO) 55.3 % (42-78); WHITE BLOOD COUNT 11.1 10^3/uL (4.0-10.5)
[2017-02-21] MEDS: ACETAMINOPHEN 325 MG TABLET PO SCH ×3 (06:36→18:02)
[2017-02-21] MEDS: TRAMADOL HCL 50 MG TABLET PO SCH ×3 (06:36→18:01)
[2017-02-21] MEDS: ALPRAZOLAM 0.5 MG TABLET PO SCH ×3 (06:37→21:16)
[2017-02-21] MEDS: APIXABAN 2.5 MG TABLET PO SCH ×2 (06:37→18:02)
[2017-02-21] MEDS: MEGESTROL ACETATE 20 MG TABLET PO SCH ×2 (09:51→18:03)
[2017-02-21] MEDS: METOPROLOL SUCCINATE 50 MG TAB.SR.24H PO SCH (09:51)
[2017-02-21] MEDS: CEFEPIME HCL 1 GM in DEXTROSE 5%-WATER 50 ML IV SCH (09:53)
[2017-02-21] MEDS: PIPERACILLIN SODIUM/TAZOBACTAM 3.375 GM in NORMAL SALINE 100 ML IV SCH ×2 (15:18→21:15)
--- NOTE | 2017-02-21 19:26 | PDOC PROGRESS REPORT ---
Subjective Progress Note for:: 02/21/17 Subjective:: Patient was seen by the bedside, the culture from the foot ulcer grew pseudomonas and E-Feacalis , the antibiotic was changed to Zosyn to cover Pseudomonas, E faecalis and also potential respiratory pathogens. Physical Exam Vital Signs: Temp Pulse Resp BP Pulse Ox 98.7 F 75 22 H 147/74 H 100 02/21/17 17:00 02/21/17 17:00 02/21/17 17:00 02/21/17 17:00 02/21/17 17:00 Intake & Output 02/20/17 02/21/17 02/22/17 06:59 06:59 06:59 Intake Total 2614 3222 200 Output Total 1000 1800 400 Balance 1614 1422 -200 Weight 78.3 kg 78.3 kg General appearance: PRESENT: no acute distress Respiratory exam: PRESENT: crackles Cardiovascular exam: PRESENT: +S1, +S2 GI/Abdominal exam: PRESENT: soft Neurological exam: PRESENT: alert Results Laboratory Results: 02/21/17 04:44 02/21/17 04:44 02/21/17 02/21/17 04:44 04:44 WBC 11.1 H RBC 3.45 L Hgb 11.2 L Hct 34.1 L MCV 99 H MCH 32.4 MCHC 32.8 RDW 13.9 Plt Count 220 Seg Neutrophils % 55.3 Lymphocytes % 35.5 Monocytes % 6.6 Eosinophils % 1.9 Basophils % 0.7 Absolute Neutrophils 6.1 Absolute Lymphocytes 3.9 Absolute Monocytes 0.7 Absolute Eosinophils 0.2 Absolute Basophils 0.1 Sodium 144.1 Potassium 4.2 Chloride 112 H Carbon Dioxide 22 Anion Gap 10 BUN 12 Creatinine 0.40 L Est GFR ( Amer) > 60 Est GFR (Non-Af Amer) > 60 Glucose 80 Calcium 9.7 02/18/17 18:20 Sacrum - Decubitis Ulcer Gram Stain - Final 02/18/17 18:20 Sacrum - Decubitis Ulcer Wound Culture - Final Pseudomonas Aeruginosa Enterococcus Faecalis(Group D) No Anaerobic Organisms 02/18/17 02/18/17 02/18/17 17:18 17:18 23:40 Creatine Kinase 200 H 172 H CK-MB (CK-2) 2.22 Troponin I 0.281 02/18/17 02/19/17 02/19/17 23:40 06:04 06:04 Creatine Kinase 147 H CK-MB (CK-2) 1.73 1.26 Troponin I 0.190 0.142 Impressions: Chest CT 02/18/17 00:00 IMPRESSION: 1. Left lower lobe consolidation. In the appropriate clinical setting, this may represent lobar pneumonia. 2. Re- demonstration of a right thyroid mass, which appears similar to that seen on 10/13/2014 CT imaging. Chest X-Ray 02/18/17 08:45 IMPRESSION: NO ACUTE CARDIOPULMONARY PROCESS. NO SIGNIFICANT CHANGE FROM PRIOR STUDY. Head CT 02/18/17 11:55 IMPRESSION: NO ACUTE INTRACRANIAL PROCESS. NO SIGNIFICANT CHANGE FROM PRIOR STUDY. Thyroid Ultrasound 02/19/17 00:00 IMPRESSION: STABLE NODULAR ENLARGEMENT OF THE RIGHT LOBE OF THE THYROID GLAND AND STABLE ISTHMUS NODULE. STATUS POST LEFT THYROIDECTOMY. Assessment & Plan - Diagnosis (1) Acute hypoxemic respiratory failure Is this a current diagnosis for this admission?: Yes (2) Left lower lobe pneumonia Qualifiers: Pneumonia type: due to unspecified organism Qualified Code(s): J18.1 - Lobar pneumonia, unspecified organism Is this a current diagnosis for this admission?: YesPlan: She will continue antibiotic (3) Thyroid mass Is this a current diagnosis for this admission?: Yes (4) Dementia Qualifiers: Dementia type: Alzheimer's disease Alzheimer's disease onset: late- onset Dementia behavioral disturbance: with behavioral disturbance Qualified Code(s): G30.1 - Alzheimer's disease with late onset; F02.81 - Dementia in other diseases classified elsewhere with behavioral disturbance Is this a current diagnosis for this admission?: Yes (5) Decubitus ulcer of sacral region, stage 1 Is this a current diagnosis for this admission?: Yes (6) Chronic atrial fibrillation Is this a current diagnosis for this admission?: Yes (7) Elevated troponin Is this a current diagnosis for this admission?: Yes (8) Sepsis Qualifiers: Sepsis type: sepsis due to unspecified organism Qualified Code(s): A41.9 - Sepsis, unspecified organism Is this a current diagnosis for this admission?: Yes
[2017-02-21] MEDS: DONEPEZIL HCL 5 MG TABLET PO SCH (21:16)
[2017-02-22] MEDS: TRAMADOL HCL 50 MG TABLET PO SCH ×4 (00:23→18:00)
[2017-02-22] MEDS: ACETAMINOPHEN 325 MG TABLET PO SCH ×4 (00:25→18:00)
[2017-02-22] MEDS: PIPERACILLIN SODIUM/TAZOBACTAM 3.375 GM in NORMAL SALINE 100 ML IV SCH ×4 (03:38→20:49)
[2017-02-22] MEDS: ALPRAZOLAM 0.5 MG TABLET PO SCH ×3 (05:23→21:56)
[2017-02-22] MEDS: APIXABAN 2.5 MG TABLET PO SCH ×2 (05:24→18:00)
[2017-02-22] MEDS: ALBUTEROL SULFATE 0.083% NEB 2.5 MG/3 ML AMPUL NEB PRN ×2 (09:08→15:35)
[2017-02-22] MEDS: METOPROLOL SUCCINATE 50 MG TAB.SR.24H PO SCH (11:22)
[2017-02-22] MEDS: MEGESTROL ACETATE 20 MG TABLET PO SCH ×2 (11:24→18:00)
[2017-02-22] MEDS ORDERED: LIDOCAINE 1% INJ-PF (10 MG/ML) 30 ML SDV ONE (13:42)
[2017-02-22] MEDS: NORMAL SALINE 1000 ML 1,000 ML IV PRN (14:37)
--- NOTE | 2017-02-22 14:44 | OPERATIVE REPORT E ---
Operative Report NAME: MAGDALENO NAVAS : 1935 AGE: 81Y DATE OF SURGERY: ROOM: 321 PREOPERATIVE DIAGNOSIS: POOR VEINS FOR IV ACCESS. POSTOPERATIVE DIAGNOSIS: POOR VEINS FOR IV ACCESS. OPERATION: Placement of right subclavian triple-lumen catheter. SURGEON: KIRK CUTLER M.D. ANESTHESIA: Local. INDICATIONS: This is an 81-year-old female with rheumatoid arthritis. An attempt was done to place a PIC line but unable to do so because she is contracted. DESCRIPTION OF PROCEDURE: The patient was placed in Trendelenburg position and the right neck and infraclavicular area prepped and draped in the usual sterile fashion. Local anesthesia infiltrated at the right infraclavicular lateral area. The right subclavian vein was then punctured and guidewire placed for the needle into the superior vena cava. The puncture site was enlarged with an 11 blade and dilator passed through the guidewire to dilate the entrance site. Next, a triple-lumen catheter was then placed through the guidewire towards the superior vena cava and the catheter inserted up to about 17 cm. The ports then aspirated blood quite easily and infused saline easily. Catheter was then anchored to the skin with 3-0 silk and a BioPatch placed at the puncture site. A transparent sterile dressing was then placed over the catheter. The patient tolerated the procedure well. Chest x-ray was just done and unofficial look at the film it appears that the catheter is in good position in the distal superior vena cava and no obvious pneumothorax. DICTATING PHYSICIAN: KIRK CUTLER M.D. [id number] PHY#: [id number] ID: [id number] JOB#: [id number] ACCT: [id number] cc:KIRK CUTLER M.D. >
--- NOTE | 2017-02-22 15:07 | RADIOLOGY REPORT (SQ) ---
EXAM DESCRIPTION: CHEST SINGLE VIEW COMPLETED DATE/TIME: 02/22/2017 2:24 pm REASON FOR STUDY: line confirmation COMPARISON: 02/18/2017 EXAM PARAMETERS: NUMBER OF VIEWS: One view. TECHNIQUE: Single frontal radiographic view of the chest acquired. RADIATION DOSE: NA LIMITATIONS: None. FINDINGS: LUNGS AND PLEURA: There is a considerable residual opacity in the left base. MEDIASTINUM AND HILAR STRUCTURES: Right upper mediastinal mass shifts the trachea to the left. This was seen on CT to represent thyroid gland. HEART AND VASCULAR STRUCTURES: Heart normal in size. Normal vasculature. BONES: No acute findings. HARDWARE: A right subclavian line has its tip in the superior vena cava. OTHER: No other significant finding. IMPRESSION: 1. Right lobe of the thyroid mass seen on CT with shift of the trachea to the left. 2. Left lower lobe pneumonia. 3. A right subclavian line has its tip in the superior vena cava. TECHNICAL DOCUMENTATION: JOB ID: [id number]
[2017-02-22 16:24] LABS: ABSOLUTE BASOPHILS # (AUTO) 0.1 10^3/uL (0.0-0.2); ABSOLUTE EOSINOPHILS # (AUTO) 0.3 10^3/uL (0.0-0.6); ABSOLUTE LYMPHOCYTES (AUTO) 5.4 10^3/uL (0.5-4.7); ABSOLUTE MONOCYTES (AUTO) 0.6 10^3/uL (0.1-1.4); ABSOLUTE NEUT (AUTO) 7.9 10^3/uL (1.7-8.2); BASOPHILS % (AUTO) 0.6 % (0-2); HEMATOCRIT 32.7 % (36.0-47.0); HEMOGLOBIN 10.3 g/dL (12.0-15.5); HGB HCT DIFFERENCE -1.8; LYMPHOCYTES % (AUTO) 37.7 % (13-45); MEAN CORPUSCULAR HEMOGLOBIN 31.3 pg (27.0-33.4); MEAN CORPUSCULAR HGB CONC 31.7 g/dL (32.0-36.0); MEAN CORPUSCULAR VOLUME 99 fl (80-97); MONOCYTES % (AUTO) 4.5 % (3-13); RED BLOOD COUNT 3.31 10^6/uL (3.72-5.28); RED CELL DISTRIBUTION WIDTH 13.7 % (11.5-14.0); SEGMENTED NEUTROPHILS % (AUTO) 55.2 % (42-78); WHITE BLOOD COUNT 14.3 10^3/uL (4.0-10.5)
[2017-02-22 16:37] LABS: ALANINE AMINOTRANSFERASE 28 U/L (9-52); ALBUMIN 2.9 g/dL (3.5-5.0); ALKALINE PHOSPHATASE 62 U/L (38-126); ANION GAP 10 (5-19); ASPARTATE AMINO TRANSFERASE 15 U/L (14-36); BILIRUBIN,DIRECT 0.3 mg/dL (0.0-0.4); BILIRUBIN,TOTAL 0.3 mg/dL (0.2-1.3); BLOOD UREA NITROGEN 12 mg/dL (7-20); CALCIUM 9.8 mg/dL (8.4-10.2); CARBON DIOXIDE 24 mmol/L (22-30); CHLORIDE 109 mmol/L (98-107); CREATININE RESULT 0.46 mg/dL (0.52-1.25); GLUCOSE 89 mg/dL (75-110); TOTAL PROTEIN 6.1 g/dL (6.3-8.2)
--- NOTE | 2017-02-22 17:31 | PDOC PROGRESS REPORT ---
Subjective Progress Note for:: 02/22/17 Subjective:: She was seen by the bedside, she was admitted because of pneumonia, she has a central line placed yesterday because of IV access problem. She has dementia, she does not talk much Physical Exam Vital Signs: Temp Pulse Resp BP Pulse Ox 98.9 F 69 18 142/64 H 100 02/22/17 15:38 02/22/17 15:38 02/22/17 15:38 02/22/17 15:38 02/22/17 15:38 Intake & Output 02/21/17 02/22/17 02/23/17 06:59 06:59 06:59 Intake Total 3222 1564 118 Output Total 1800 1250 400 Balance 1422 314 -282 Weight 78.3 kg 79.8 kg General appearance: PRESENT: no acute distress Eye exam: PRESENT: PERRLA Respiratory exam: PRESENT: decreased breath sounds Cardiovascular exam: PRESENT: +S1, +S2 GI/Abdominal exam: PRESENT: soft Neurological exam: PRESENT: alert Results Laboratory Results: 02/22/17 16:08 02/22/17 16:08 02/22/17 02/22/17 16:08 16:08 WBC 14.3 H RBC 3.31 L Hgb 10.3 L Hct 32.7 L MCV 99 H MCH 31.3 MCHC 31.7 L RDW 13.7 Plt Count 268 Seg Neutrophils % 55.2 Lymphocytes % 37.7 Monocytes % 4.5 Eosinophils % 2.0 Basophils % 0.6 Absolute Neutrophils 7.9 Absolute Lymphocytes 5.4 H Absolute Monocytes 0.6 Absolute Eosinophils 0.3 Absolute Basophils 0.1 Sodium 143.0 Potassium 4.0 Chloride 109 H Carbon Dioxide 24 Anion Gap 10 BUN 12 Creatinine 0.46 L Est GFR ( Amer) > 60 Est GFR (Non-Af Amer) > 60 Glucose 89 Calcium 9.8 Total Bilirubin 0.3 AST 15 ALT 28 Alkaline Phosphatase 62 Total Protein 6.1 L Albumin 2.9 L 02/18/17 02/18/17 02/18/17 17:18 17:18 23:40 Creatine Kinase 200 H 172 H CK-MB (CK-2) 2.22 Troponin I 0.281 02/18/17 02/19/17 02/19/17 23:40 06:04 06:04 Creatine Kinase 147 H CK-MB (CK-2) 1.73 1.26 Troponin I 0.190 0.142 Impressions: Chest CT 02/18/17 00:00 IMPRESSION: 1. Left lower lobe consolidation. In the appropriate clinical setting, this may represent lobar pneumonia. 2. Re- demonstration of a right thyroid mass, which appears similar to that seen on 10/13/[address] 02/18/17 11:55 IMPRESSION: NO ACUTE INTRACRANIAL PROCESS. NO SIGNIFICANT CHANGE FROM PRIOR STUDY. Thyroid Ultrasound 02/19/17 00:00 IMPRESSION: STABLE NODULAR ENLARGEMENT OF THE RIGHT LOBE OF THE THYROID GLAND AND STABLE ISTHMUS NODULE. STATUS POST LEFT THYROIDECTOMY. Chest X-Ray 02/22/17 13:58 IMPRESSION: 1. Right lobe of the thyroid mass seen on CT with shift of the trachea to the left. 2. Left lower lobe pneumonia. 3. A right subclavian line has its tip in the superior vena cava. Assessment & Plan - Diagnosis (1) Acute hypoxemic respiratory failure Is this a current diagnosis for this admission?: Yes (2) Left lower lobe pneumonia Qualifiers: Pneumonia type: due to unspecified organism Qualified Code(s): J18.1 - Lobar pneumonia, unspecified organism Is this a current diagnosis for this admission?: Yes (3) Thyroid mass Is this a current diagnosis for this admission?: Yes (4) Dementia Qualifiers: Dementia type: Alzheimer's disease Alzheimer's disease onset: late- onset Dementia behavioral disturbance: with behavioral disturbance Qualified Code(s): G30.1 - Alzheimer's disease with late onset; F02.81 - Dementia in other diseases classified elsewhere with behavioral disturbance Is this a current diagnosis for this admission?: Yes (5) Decubitus ulcer of sacral region, stage 1 Is this a current diagnosis for this admission?: Yes (6) Chronic atrial fibrillation Is this a current diagnosis for this admission?: Yes (7) Elevated troponin Is this a current diagnosis for this admission?: Yes (8) Sepsis Qualifiers: Sepsis type: sepsis due to unspecified organism Qualified Code(s): A41.9 - Sepsis, unspecified organism Is this a current diagnosis for this admission?: Yes - Plan Summary Plan Summary: Continue the antibiotic and other treatment
[2017-02-22] MEDS: DONEPEZIL HCL 5 MG TABLET PO SCH (21:56)
[2017-02-23] MEDS: TRAMADOL HCL 50 MG TABLET PO SCH ×5 (00:14→23:36)
[2017-02-23] MEDS: ACETAMINOPHEN 325 MG TABLET PO SCH ×5 (00:14→23:36)
[2017-02-23] MEDS: PIPERACILLIN SODIUM/TAZOBACTAM 3.375 GM in NORMAL SALINE 100 ML IV SCH ×4 (03:30→22:02)
[2017-02-23] MEDS: NORMAL SALINE 1000 ML 1,000 ML IV PRN ×3 (03:32→22:08)
[2017-02-23] MEDS: ALPRAZOLAM 0.5 MG TABLET PO SCH ×3 (05:50→22:03)
[2017-02-23] MEDS: APIXABAN 2.5 MG TABLET PO SCH ×2 (05:51→17:22)
[2017-02-23] MEDS: ALBUTEROL SULFATE 0.083% NEB 2.5 MG/3 ML AMPUL NEB PRN ×2 (08:21→11:23)
[2017-02-23] MEDS: MEGESTROL ACETATE 20 MG TABLET PO SCH ×2 (09:54→17:23)
[2017-02-23] MEDS: METOPROLOL SUCCINATE 50 MG TAB.SR.24H PO SCH (09:54)
[2017-02-23 21:24] LABS: ABSOLUTE BASOPHILS # (AUTO) 0.1 10^3/uL (0.0-0.2); ABSOLUTE EOSINOPHILS # (AUTO) 0.4 10^3/uL (0.0-0.6); ABSOLUTE LYMPHOCYTES (AUTO) 3.1 10^3/uL (0.5-4.7); ABSOLUTE MONOCYTES (AUTO) 0.7 10^3/uL (0.1-1.4); ABSOLUTE NEUT (AUTO) 6.3 10^3/uL (1.7-8.2); EOSINOPHILS % (AUTO) 3.7 % (0-6); HEMATOCRIT 29.3 % (36.0-47.0); HEMOGLOBIN 9.7 g/dL (12.0-15.5); HGB HCT DIFFERENCE -0.2; LYMPHOCYTES % (AUTO) 29.3 % (13-45); MEAN CORPUSCULAR HEMOGLOBIN 32.7 pg (27.0-33.4); MEAN CORPUSCULAR HGB CONC 33.3 g/dL (32.0-36.0); MEAN CORPUSCULAR VOLUME 98 fl (80-97); MONOCYTES % (AUTO) 6.6 % (3-13); RED BLOOD COUNT 2.98 10^6/uL (3.72-5.28); RED CELL DISTRIBUTION WIDTH 13.9 % (11.5-14.0); SEGMENTED NEUTROPHILS % (AUTO) 59.4 % (42-78); WHITE BLOOD COUNT 10.6 10^3/uL (4.0-10.5)
[2017-02-23 21:43] LABS: ALANINE AMINOTRANSFERASE 29 U/L (9-52); ALBUMIN 2.7 g/dL (3.5-5.0); ALKALINE PHOSPHATASE 61 U/L (38-126); ANION GAP 8 (5-19); ASPARTATE AMINO TRANSFERASE 13 U/L (14-36); BILIRUBIN,DIRECT 0.3 mg/dL (0.0-0.4); BILIRUBIN,TOTAL 0.3 mg/dL (0.2-1.3); BLOOD UREA NITROGEN 10 mg/dL (7-20); CALCIUM 9.1 mg/dL (8.4-10.2); CARBON DIOXIDE 24 mmol/L (22-30); CHLORIDE 110 mmol/L (98-107); CREATININE RESULT 0.53 mg/dL (0.52-1.25); GLUCOSE 100 mg/dL (75-110); POTASSIUM 3.6 mmol/L (3.6-5.0); SODIUM 142.1 mmol/L (137-145); TOTAL PROTEIN 5.7 g/dL (6.3-8.2); URINE PROTEIN 12.8 mg/dL (<12)
[2017-02-23 21:46] LABS: URINE CREATININE 61.8 mg/dL (15-278)
[2017-02-23] MEDS: DONEPEZIL HCL 5 MG TABLET PO SCH (22:03)
[2017-02-23] MEDS: MONTELUKAST SODIUM 10 MG TABLET PO SCH (22:03)
[2017-02-24] MEDS: PIPERACILLIN SODIUM/TAZOBACTAM 3.375 GM in NORMAL SALINE 100 ML IV SCH ×4 (03:50→23:14)
[2017-02-24] MEDS: TRAMADOL HCL 50 MG TABLET PO SCH ×3 (06:45→17:39)
[2017-02-24] MEDS: ACETAMINOPHEN 325 MG TABLET PO SCH ×3 (06:45→17:40)
[2017-02-24] MEDS: ALPRAZOLAM 0.5 MG TABLET PO SCH ×3 (06:45→22:57)
[2017-02-24] MEDS: APIXABAN 2.5 MG TABLET PO SCH ×2 (06:46→17:45)
[2017-02-24 07:04] LABS: ABSOLUTE BASOPHILS # (AUTO) 0.1 10^3/uL (0.0-0.2); ABSOLUTE EOSINOPHILS # (AUTO) 0.4 10^3/uL (0.0-0.6); ABSOLUTE LYMPHOCYTES (AUTO) 3.6 10^3/uL (0.5-4.7); ABSOLUTE MONOCYTES (AUTO) 0.6 10^3/uL (0.1-1.4); ABSOLUTE NEUT (AUTO) 5.8 10^3/uL (1.7-8.2); BASOPHILS % (AUTO) 0.9 % (0-2); HEMATOCRIT 27.9 % (36.0-47.0); HEMOGLOBIN 9.2 g/dL (12.0-15.5); HGB HCT DIFFERENCE -0.3; LYMPHOCYTES % (AUTO) 34.4 % (13-45); MEAN CORPUSCULAR HEMOGLOBIN 32.5 pg (27.0-33.4); MEAN CORPUSCULAR HGB CONC 32.9 g/dL (32.0-36.0); MEAN CORPUSCULAR VOLUME 99 fl (80-97); MONOCYTES % (AUTO) 5.4 % (3-13); RED BLOOD COUNT 2.82 10^6/uL (3.72-5.28); RED CELL DISTRIBUTION WIDTH 13.6 % (11.5-14.0); SEGMENTED NEUTROPHILS % (AUTO) 55.3 % (42-78); WHITE BLOOD COUNT 10.5 10^3/uL (4.0-10.5)
[2017-02-24 07:23] LABS: ALANINE AMINOTRANSFERASE 27 U/L (9-52); ALBUMIN 2.6 g/dL (3.5-5.0); ALKALINE PHOSPHATASE 50 U/L (38-126); ANION GAP 9 (5-19); ASPARTATE AMINO TRANSFERASE 12 U/L (14-36); BILIRUBIN,DIRECT 0.2 mg/dL (0.0-0.4); BILIRUBIN,TOTAL 0.5 mg/dL (0.2-1.3); BLOOD UREA NITROGEN 8 mg/dL (7-20); CARBON DIOXIDE 24 mmol/L (22-30); CHLORIDE 111 mmol/L (98-107); CREATININE RESULT 0.41 mg/dL (0.52-1.25); GLUCOSE 77 mg/dL (75-110); POTASSIUM 3.4 mmol/L (3.6-5.0); SODIUM 143.5 mmol/L (137-145); TOTAL PROTEIN 5.5 g/dL (6.3-8.2)
[2017-02-24] MEDS: ALBUTEROL SULFATE 0.083% NEB 2.5 MG/3 ML AMPUL NEB PRN ×3 (08:18→15:35)
[2017-02-24] MEDS: NORMAL SALINE 1000 ML 1,000 ML IV PRN (10:49)
[2017-02-24] MEDS: METOPROLOL SUCCINATE 50 MG TAB.SR.24H PO SCH (10:50)
[2017-02-24] MEDS: MEGESTROL ACETATE 20 MG TABLET PO SCH ×2 (10:50→17:39)
[2017-02-24] MEDS ORDERED: NYSTATIN TOPICAL POWDER 15 GM TP ONE (17:00)
[2017-02-24] MEDS ORDERED: ZINC OXIDE 20% OINTMENT 28.35 GM TP PRN (17:00)
[2017-02-24] MEDS ORDERED: POTASSIUM CHLORIDE 10 MEQ TABLET.SA PO ONE (20:43)
--- NOTE | 2017-02-24 20:48 | PDOC PROGRESS REPORT ---
Subjective Progress Note for:: 02/24/17 Subjective:: She was seen by the bedside, she was admitted because of pneumonia Physical Exam Vital Signs: Temp Pulse Resp BP Pulse Ox 98.8 F 85 20 137/55 H 100 02/24/17 16:21 02/24/17 16:21 02/24/17 16:21 02/24/17 16:21 02/24/17 16:21 Intake & Output 02/23/17 02/24/17 02/25/17 06:59 06:59 06:59 Intake Total 2340 2911 2231 Output Total 2150 600 1050 Balance 190 2311 1181 Weight 83.4 kg 81.9 kg General appearance: PRESENT: no acute distress Eye exam: PRESENT: PERRLA Respiratory exam: PRESENT: rhonchi Cardiovascular exam: PRESENT: +S1, +S2 GI/Abdominal exam: PRESENT: soft Neurological exam: PRESENT: alert Results Laboratory Results: 02/24/17 06:50 02/24/17 06:50 02/23/17 02/23/17 02/24/17 21:00 21:00 06:50 WBC 10.6 H 10.5 RBC 2.98 L 2.82 L Hgb 9.7 L 9.2 L Hct 29.3 L 27.9 L MCV 98 H 99 H MCH 32.7 32.5 MCHC 33.3 32.9 RDW 13.9 13.6 Plt Count 258 245 Seg Neutrophils % 59.4 55.3 Lymphocytes % 29.3 34.4 Monocytes % 6.6 5.4 Eosinophils % 3.7 4.0 Basophils % 1.0 0.9 Absolute Neutrophils 6.3 5.8 Absolute Lymphocytes 3.1 3.6 Absolute Monocytes 0.7 0.6 Absolute Eosinophils 0.4 0.4 Absolute Basophils 0.1 0.1 Sodium 142.1 Potassium 3.6 Chloride 110 H Carbon Dioxide 24 Anion Gap 8 BUN 10 Creatinine 0.53 Est GFR ( Amer) > 60 Est GFR (Non-Af Amer) > 60 Glucose 100 Calcium 9.1 Total Bilirubin 0.3 AST 13 L ALT 29 Alkaline Phosphatase 61 Total Protein 5.7 L Albumin 2.7 L 02/24/17 06:50 WBC RBC Hgb Hct MCV MCH MCHC RDW Plt Count Seg Neutrophils % Lymphocytes % Monocytes % Eosinophils % Basophils % Absolute Neutrophils Absolute Lymphocytes Absolute Monocytes Absolute Eosinophils Absolute Basophils Sodium 143.5 Potassium 3.4 L Chloride 111 H Carbon Dioxide 24 Anion Gap 9 BUN 8 Creatinine 0.41 L Est GFR ( Amer) > 60 Est GFR (Non-Af Amer) > 60 Glucose 77 Calcium 9.0 Total Bilirubin 0.5 AST 12 L ALT 27 Alkaline Phosphatase 50 Total Protein 5.5 L Albumin 2.6 L 02/18/17 02/18/17 02/18/17 17:18 17:18 23:40 Creatine Kinase 200 H 172 H CK-MB (CK-2) 2.22 Troponin I 0.281 02/18/17 02/19/17 02/19/17 23:40 06:04 06:04 Creatine Kinase 147 H CK-MB (CK-2) 1.73 1.26 Troponin I 0.190 0.142 Impressions: Chest CT 02/18/17 00:00 IMPRESSION: 1. Left lower lobe consolidation. In the appropriate clinical setting, this may represent lobar pneumonia. 2. Re- demonstration of a right thyroid mass, which appears similar to that seen on 10/13/[address] 02/18/17 11:55 IMPRESSION: NO ACUTE INTRACRANIAL PROCESS. NO SIGNIFICANT CHANGE FROM PRIOR STUDY. Thyroid Ultrasound 02/19/17 00:00 IMPRESSION: STABLE NODULAR ENLARGEMENT OF THE RIGHT LOBE OF THE THYROID GLAND AND STABLE ISTHMUS NODULE. STATUS POST LEFT THYROIDECTOMY. Chest X-Ray 02/22/17 13:58 IMPRESSION: 1. Right lobe of the thyroid mass seen on CT with shift of the trachea to the left. 2. Left lower lobe pneumonia. 3. A right subclavian line has its tip in the superior vena cava. Assessment & Plan - Diagnosis (1) Acute hypoxemic respiratory failure Is this a current diagnosis for this admission?: Yes (2) Left lower lobe pneumonia Qualifiers: Pneumonia type: due to unspecified organism Qualified Code(s): J18.1 - Lobar pneumonia, unspecified organism Is this a current diagnosis for this admission?: Yes (3) Thyroid mass Is this a current diagnosis for this admission?: Yes (4) Dementia Qualifiers: Dementia type: Alzheimer's disease Alzheimer's disease onset: late- onset Dementia behavioral disturbance: with behavioral disturbance Qualified Code(s): G30.1 - Alzheimer's disease with late onset; F02.81 - Dementia in other diseases classified elsewhere with behavioral disturbance Is this a current diagnosis for this admission?: Yes (5) Decubitus ulcer of sacral region, stage 1 Is this a current diagnosis for this admission?: Yes (6) Chronic atrial fibrillation Is this a current diagnosis for this admission?: Yes (7) Elevated troponin Is this a current diagnosis for this admission?: Yes (8) Sepsis Qualifiers: Sepsis type: sepsis due to unspecified organism Qualified Code(s): A41.9 - Sepsis, unspecified organism Is this a current diagnosis for this admission?: Yes - Plan Summary Plan Summary: She is retaining fluid, she will be given furosemide 20 mg IV daily
[2017-02-24] MEDS ORDERED: FUROSEMIDE INJ/PF 20 MG/2 ML SDV IV ONE (21:30)
[2017-02-24] MEDS: DONEPEZIL HCL 5 MG TABLET PO SCH (22:58)
[2017-02-24] MEDS: MONTELUKAST SODIUM 10 MG TABLET PO SCH (22:58)
[2017-02-25] MEDS: APIXABAN 2.5 MG TABLET PO SCH ×2 (06:53→18:35)
[2017-02-25] MEDS: ACETAMINOPHEN 325 MG TABLET PO SCH ×3 (06:53→18:34)
[2017-02-25] MEDS: ALPRAZOLAM 0.5 MG TABLET PO SCH ×3 (06:53→21:14)
[2017-02-25] MEDS: TRAMADOL HCL 50 MG TABLET PO SCH ×3 (08:14→18:35)
[2017-02-25] MEDS: PIPERACILLIN SODIUM/TAZOBACTAM 3.375 GM in NORMAL SALINE 100 ML IV SCH ×4 (08:14→21:13)
[2017-02-25] MEDS: ALBUTEROL SULFATE 0.083% NEB 2.5 MG/3 ML AMPUL NEB PRN ×3 (08:34→15:34)
[2017-02-25] MEDS: METOPROLOL SUCCINATE 50 MG TAB.SR.24H PO SCH (08:37)
[2017-02-25] MEDS: FUROSEMIDE INJ/PF 20 MG/2 ML SDV IV SCH (08:37)
[2017-02-25] MEDS: MEGESTROL ACETATE 20 MG TABLET PO SCH ×2 (08:38→18:37)
[2017-02-25] MEDS: NORMAL SALINE 1000 ML 1,000 ML IV PRN (08:44)
--- NOTE | 2017-02-25 10:13 | PDOC PROGRESS REPORT ---
Subjective Progress Note for:: 02/25/17 Subjective:: This is a 81-year-old female admitted because of the pneumonia and significant dementia and currently doing same and decubitus ulcer. Daughter was upset Because the Dr. Hall put the patient's DNR but that she wants to be a full code discussed with the daughter about the patient's current conditions And is not a great conditions with overall prognosis is not that great with a significant dementia and multiple other comorbidity. He continues to the patient is a full code as per the daughter request. According to the nursing staff no other events happens overnight Physical Exam Vital Signs: Temp Pulse Resp BP Pulse Ox 98.6 F 83 18 145/69 H 100 02/25/17 07:18 02/25/17 07:18 02/25/17 07:18 02/25/17 07:18 02/25/17 07:18 Intake & Output 02/24/17 02/25/17 02/26/17 06:59 06:59 06:59 Intake Total 2911 2681 Output Total 600 4350 Balance 2311 -1669 Weight 81.9 kg 81.9 kg General appearance: PRESENT: no acute distress Head exam: PRESENT: normocephalic Eye exam: PRESENT: PERRLA Mouth exam: PRESENT: neck supple Respiratory exam: PRESENT: decreased breath sounds Cardiovascular exam: PRESENT: +S1, +S2 GI/Abdominal exam: PRESENT: normal bowel sounds, soft Neurological exam: PRESENT: alert, altered Psychiatric exam: PRESENT: anxious Results Laboratory Results: 02/24/17 06:50 02/24/17 06:50 02/18/17 02/18/17 02/18/17 17:18 17:18 23:40 Creatine Kinase 200 H 172 H CK-MB (CK-2) 2.22 Troponin I 0.281 02/18/17 02/19/17 02/19/17 23:40 06:04 06:04 Creatine Kinase 147 H CK-MB (CK-2) 1.73 1.26 Troponin I 0.190 0.142 Impressions: Chest CT 02/18/17 00:00 IMPRESSION: 1. Left lower lobe consolidation. In the appropriate clinical setting, this may represent lobar pneumonia. 2. Re- demonstration of a right thyroid mass, which appears similar to that seen on 10/13/[address] 02/18/17 11:55 IMPRESSION: NO ACUTE INTRACRANIAL PROCESS. NO SIGNIFICANT CHANGE FROM PRIOR STUDY. Thyroid Ultrasound 02/19/17 00:00 IMPRESSION: STABLE NODULAR ENLARGEMENT OF THE RIGHT LOBE OF THE THYROID GLAND AND STABLE ISTHMUS NODULE. STATUS POST LEFT THYROIDECTOMY. Chest X-Ray 02/22/17 13:58 IMPRESSION: 1. Right lobe of the thyroid mass seen on CT with shift of the trachea to the left. 2. Left lower lobe pneumonia. 3. A right subclavian line has its tip in the superior vena cava. Assessment & Plan - Diagnosis (1) Acute hypoxemic respiratory failure Is this a current diagnosis for this admission?: YesPlan: Currently stable continues to current medications (2) Decubitus ulcer of sacral region, stage 1 Is this a current diagnosis for this admission?: YesPlan: Continues to protocol (3) Dementia Qualifiers: Dementia type: Alzheimer's disease Alzheimer's disease onset: late- onset Dementia behavioral disturbance: with behavioral disturbance Qualified Code(s): G30.1 - Alzheimer's disease with late onset; F02.81 - Dementia in other diseases classified elsewhere with behavioral disturbance Is this a current diagnosis for this admission?: Yes (4) Left lower lobe pneumonia Qualifiers: Pneumonia type: due to unspecified organism Qualified Code(s): J18.1 - Lobar pneumonia, unspecified organism Is this a current diagnosis for this admission?: YesPlan: Continues IV antibiotic (5) Sepsis Qualifiers: Sepsis type: sepsis due to unspecified organism Qualified Code(s): A41.9 - Sepsis, unspecified organism Is this a current diagnosis for this admission?: YesPlan: Continues on IV antibiotic (6) Thyroid mass Is this a current diagnosis for this admission?: Yes - Time Time Spent with patient: 15-24 minutes Medications reviewed and adjusted accordingly: Yes Anticipated discharge: SNF Within: Other - Inpatient Certification Medical Necessity: Need for IV Antibiotics Post Hospital Care: D/C English Tutor Documentation - Plan Summary Plan Summary: Discussed with the daughter about the patient's current conditions overall prognosis is poor as per per daughter request we will change the patient's cod status of full code
--- NOTE | 2017-02-25 12:48 | RADIOLOGY REPORT (SQ) ---
EXAM DESCRIPTION: CHEST SINGLE VIEW COMPLETED DATE/TIME: 02/25/2017 12:16 pm REASON FOR STUDY: pnemonia COMPARISON: Chest films 02/22/2017, 02/18/2017 CT chest 02/18/2017 EXAM PARAMETERS: NUMBER OF VIEWS: One view. TECHNIQUE: Single frontal radiographic view of the chest acquired. RADIATION DOSE: NA LIMITATIONS: None. FINDINGS: LUNGS AND PLEURA: Persistent left basilar airspace disease worrisome for pneumonia. This is unchanged from prior plain films and CT chest 02/18/2017. Lungs are otherwise well inflated and clear. No gross pleural effusion or pneumothorax. No pulmonar y nodules. MEDIASTINUM AND HILAR STRUCTURES: No masses. Contour normal. HEART AND VASCULAR STRUCTURES: Heart normal in size. Normal vasculature. BONES: No acute findings. HARDWARE: Surgical clips left neck post left lobe thyroidectomy. Right subclavian triple lumen jitendra ter tip superior vena cava. OTHER: There is deviation of the trachea towards the left related to enlarged right lobe thyroid seen on chest CT 02/18/2017. IMPRESSION: Persistent airspace disease at the left lung base, atelectasis versus pneumonia. TECHNICAL DOCUMENTATION: JOB ID: [id number]
[2017-02-25] MEDS: LACTOBACILLUS ACIDOPHILUS 250 MG TAB PO SCH (18:35)
[2017-02-25] MEDS: MONTELUKAST SODIUM 10 MG TABLET PO SCH (21:14)
[2017-02-25] MEDS: DONEPEZIL HCL 5 MG TABLET PO SCH (21:14)
[2017-02-26] MEDS: ACETAMINOPHEN 325 MG TABLET PO SCH ×4 (00:01→18:17)
[2017-02-26] MEDS: PIPERACILLIN SODIUM/TAZOBACTAM 3.375 GM in NORMAL SALINE 100 ML IV SCH ×4 (02:36→21:05)
[2017-02-26] MEDS: TRAMADOL HCL 50 MG TABLET PO SCH ×4 (05:23→18:17)
[2017-02-26] MEDS: ALPRAZOLAM 0.5 MG TABLET PO SCH ×3 (05:23→21:05)
[2017-02-26] MEDS: APIXABAN 2.5 MG TABLET PO SCH ×2 (05:23→18:19)
[2017-02-26 05:24] LABS: ABSOLUTE BASOPHILS # (AUTO) 0.1 10^3/uL (0.0-0.2); ABSOLUTE EOSINOPHILS # (AUTO) 0.3 10^3/uL (0.0-0.6); ABSOLUTE LYMPHOCYTES (AUTO) 3.7 10^3/uL (0.5-4.7); ABSOLUTE MONOCYTES (AUTO) 0.8 10^3/uL (0.1-1.4); ABSOLUTE NEUT (AUTO) 5.6 10^3/uL (1.7-8.2); BASOPHILS % (AUTO) 0.5 % (0-2); EOSINOPHILS % (AUTO) 3.3 % (0-6); HEMOGLOBIN 9.3 g/dL (12.0-15.5); HGB HCT DIFFERENCE -0.1; LYMPHOCYTES % (AUTO) 35.5 % (13-45); MEAN CORPUSCULAR HEMOGLOBIN 32.7 pg (27.0-33.4); MEAN CORPUSCULAR HGB CONC 33.4 g/dL (32.0-36.0); MEAN CORPUSCULAR VOLUME 98 fl (80-97); MONOCYTES % (AUTO) 7.3 % (3-13); RED BLOOD COUNT 2.86 10^6/uL (3.72-5.28); RED CELL DISTRIBUTION WIDTH 13.9 % (11.5-14.0); SEGMENTED NEUTROPHILS % (AUTO) 53.4 % (42-78); WHITE BLOOD COUNT 10.4 10^3/uL (4.0-10.5)
[2017-02-26 05:34] LABS: ANION GAP 9 (5-19); BLOOD UREA NITROGEN 12 mg/dL (7-20); CALCIUM 9.1 mg/dL (8.4-10.2); CARBON DIOXIDE 28 mmol/L (22-30); CHLORIDE 104 mmol/L (98-107); CREATININE RESULT 0.56 mg/dL (0.52-1.25); GLUCOSE 88 mg/dL (75-110); POTASSIUM 3.7 mmol/L (3.6-5.0); SODIUM 140.6 mmol/L (137-145)
[2017-02-26] MEDS: ALBUTEROL SULFATE 0.083% NEB 2.5 MG/3 ML AMPUL NEB PRN ×2 (08:14→12:28)
[2017-02-26] MEDS: FUROSEMIDE INJ/PF 20 MG/2 ML SDV IV SCH (11:22)
[2017-02-26] MEDS: LACTOBACILLUS ACIDOPHILUS 250 MG TAB PO SCH ×2 (11:22→18:18)
[2017-02-26] MEDS: METOPROLOL SUCCINATE 50 MG TAB.SR.24H PO SCH (11:22)
[2017-02-26] MEDS: MEGESTROL ACETATE 20 MG TABLET PO SCH ×2 (11:23→18:18)
[2017-02-26] MEDS: NORMAL SALINE 1000 ML 1,000 ML IV PRN (11:24)
--- NOTE | 2017-02-26 13:34 | PDOC PROGRESS REPORT ---
Subjective Progress Note for:: 02/26/17 Subjective:: pt is doing same no chage no fever Physical Exam Vital Signs: Temp Pulse Resp BP Pulse Ox 98.4 F 65 18 119/59 L 100 02/26/17 07:24 02/26/17 07:24 02/26/17 07:24 02/26/17 07:24 02/26/17 07:24 Intake & Output 02/25/17 02/26/17 02/27/17 06:59 06:59 06:59 Intake Total 2681 4016 Output Total 0116 9603 Balance -2886 -865 Weight 81.9 kg 81 kg Physical Exam: demetia base line General appearance: PRESENT: no acute distress Head exam: PRESENT: normocephalic Eye exam: PRESENT: PERRLA Mouth exam: PRESENT: neck supple Neck exam: ABSENT: JVD Respiratory exam: PRESENT: clear to auscultation danitza Cardiovascular exam: PRESENT: +S1, +S2 GI/Abdominal exam: PRESENT: normal bowel sounds, soft Extremities exam: ABSENT: pedal edema Neurological exam: PRESENT: alert, awake Results Laboratory Results: 02/26/17 04:30 02/26/17 04:30 02/26/17 02/26/17 04:30 04:30 WBC 10.4 RBC 2.86 L Hgb 9.3 L Hct 28.0 L MCV 98 H MCH 32.7 MCHC 33.4 RDW 13.9 Plt Count 288 Seg Neutrophils % 53.4 Lymphocytes % 35.5 Monocytes % 7.3 Eosinophils % 3.3 Basophils % 0.5 Absolute Neutrophils 5.6 Absolute Lymphocytes 3.7 Absolute Monocytes 0.8 Absolute Eosinophils 0.3 Absolute Basophils 0.1 Sodium 140.6 Potassium 3.7 Chloride 104 Carbon Dioxide 28 Anion Gap 9 BUN 12 Creatinine 0.56 Est GFR ( Amer) > 60 Est GFR (Non-Af Amer) > 60 Glucose 88 Calcium 9.1 02/18/17 02/18/17 02/18/17 17:18 17:18 23:40 Creatine Kinase 200 H 172 H CK-MB (CK-2) 2.22 Troponin I 0.281 02/18/17 02/19/17 02/19/17 23:40 06:04 06:04 Creatine Kinase 147 H CK-MB (CK-2) 1.73 1.26 Troponin I 0.190 0.142 Impressions: Chest CT 02/18/17 00:00 IMPRESSION: 1. Left lower lobe consolidation. In the appropriate clinical setting, this may represent lobar pneumonia. 2. Re- demonstration of a right thyroid mass, which appears similar to that seen on 10/13/[address] 02/18/17 11:55 IMPRESSION: NO ACUTE INTRACRANIAL PROCESS. NO SIGNIFICANT CHANGE FROM PRIOR STUDY. Thyroid Ultrasound 02/19/17 00:00 IMPRESSION: STABLE NODULAR ENLARGEMENT OF THE RIGHT LOBE OF THE THYROID GLAND AND STABLE ISTHMUS NODULE. STATUS POST LEFT THYROIDECTOMY. Chest X-Ray 02/25/17 00:00 IMPRESSION: Persistent airspace disease at the left lung base, atelectasis versus pneumonia. Assessment & Plan - Diagnosis (1) Acute hypoxemic respiratory failure Is this a current diagnosis for this admission?: YesPlan: Currently stable continues to current medications (2) Decubitus ulcer of sacral region, stage 1 Is this a current diagnosis for this admission?: YesPlan: Continues to protocol (3) Dementia Qualifiers: Dementia type: Alzheimer's disease Alzheimer's disease onset: late- onset Dementia behavioral disturbance: with behavioral disturbance Qualified Code(s): G30.1 - Alzheimer's disease with late onset; F02.81 - Dementia in other diseases classified elsewhere with behavioral disturbance Is this a current diagnosis for this admission?: Yes (4) Left lower lobe pneumonia Qualifiers: Pneumonia type: due to unspecified organism Qualified Code(s): J18.1 - Lobar pneumonia, unspecified organism Is this a current diagnosis for this admission?: YesPlan: cont curr medication (5) Sepsis Qualifiers: Sepsis type: sepsis due to unspecified organism Qualified Code(s): A41.9 - Sepsis, unspecified organism Is this a current diagnosis for this admission?: YesPlan: Continues on IV antibiotic (6) Thyroid mass Is this a current diagnosis for this admission?: Yes - Time Time Spent with patient: 15-24 minutes Medications reviewed and adjusted accordingly: Yes Anticipated discharge: Other Within: Other - Inpatient Certification Medical Necessity: Need for IV Antibiotics Post Hospital Care: D/C [employer] Monitoring Technician Documentation - cont cur \r medication d/w daughter on bedside
[2017-02-26] MEDS: DONEPEZIL HCL 5 MG TABLET PO SCH (21:04)
[2017-02-26] MEDS: MONTELUKAST SODIUM 10 MG TABLET PO SCH (21:05)
[2017-02-27] MEDS: TRAMADOL HCL 50 MG TABLET PO SCH ×5 (00:05→23:44)
[2017-02-27] MEDS: ACETAMINOPHEN 325 MG TABLET PO SCH ×5 (00:06→23:44)
[2017-02-27] MEDS: PIPERACILLIN SODIUM/TAZOBACTAM 3.375 GM in NORMAL SALINE 100 ML IV SCH ×4 (03:54→22:25)
[2017-02-27] MEDS: ALPRAZOLAM 0.5 MG TABLET PO SCH ×3 (05:05→22:25)
[2017-02-27] MEDS: APIXABAN 2.5 MG TABLET PO SCH ×2 (05:06→17:33)
[2017-02-27 05:32] LABS: ANION GAP 9 (5-19); BLOOD UREA NITROGEN 15 mg/dL (7-20); CALCIUM 9.4 mg/dL (8.4-10.2); CARBON DIOXIDE 30 mmol/L (22-30); CHLORIDE 101 mmol/L (98-107); CREATININE RESULT 0.48 mg/dL (0.52-1.25); GLUCOSE 82 mg/dL (75-110); POTASSIUM 3.9 mmol/L (3.6-5.0); SODIUM 139.8 mmol/L (137-145)
[2017-02-27] MEDS: METOPROLOL SUCCINATE 50 MG TAB.SR.24H PO SCH (10:21)
[2017-02-27] MEDS: FUROSEMIDE INJ/PF 20 MG/2 ML SDV IV SCH (10:21)
[2017-02-27] MEDS: MEGESTROL ACETATE 20 MG TABLET PO SCH ×2 (10:21→17:33)
[2017-02-27] MEDS: LACTOBACILLUS ACIDOPHILUS 250 MG TAB PO SCH ×2 (10:21→17:31)
--- NOTE | 2017-02-27 14:56 | RADIOLOGY REPORT (SQ) ---
EXAM DESCRIPTION: CT CHEST WITHOUT COMPLETED DATE/TIME: 02/27/2017 2:35 pm REASON FOR STUDY: pneumonia COMPARISON: 02/18/2017 TECHNIQUE: CT scan performed of the chest without intravenous contrast. Images reviewed with lung, soft tissue and bone windows. Reconstructed coronal and sagittal MPR images reviewed. All images st ored on PACS. All CT scanners at this facility use dose modulation, iterative reconstruction, and/or weight based d osing when appropriate to reduce radiation dose to as low as reasonably achievable (ALARA). [facility]: Dose Right [facility]: CareDose [facility]: Dose Right [facility]: Teradose 4D [facility]: Smart [employer] RADIATION DOSE: Up-to-date CT equipment and radiation dose reduction techniques were employed. CTDIv ol: 14.8 mGy. DLP: 516 mGy-cm. mGy. LIMITATIONS: No technical limitations. FINDINGS: LUNGS AND PLEURA: There is persistent airspace disease in the left base. This is improved . This remains consistent with pneumonia and small effusion. There is minimal pleural thickening on the right, a small right effusion and minimal right basilar atelectasis. HILAR AND MEDIASTINAL STRUCTURES: Large upper mediastinal mass is again noted most consistent with th yroid lesion. It is stable in appearance. HEART AND VASCULAR STRUCTURES: No aneurysm. No pericardial effusion. UPPER ABDOMEN: No significant findings. Limited exam. THYROID AND OTHER SOFT TISSUES: No masses. No adenopathy. BONES: No significant finding. HARDWARE: Central line remains in place. OTHER: No other significant findings. IMPRESSION: 1. Persistent left lower lobe pneumonia improved from prior study. 2. Small right pleural effusion and minimal right basilar atelectasis. 3. Stable mass in the superior mediastinum consistent with thyroid lesion. TECHNICAL DOCUMENTATION: JOB ID: [id number] Quality ID # [id number]: Final reports with documentation of one or more dose reduction techniques (e.g., Au tomated exposure control, adjustment of the mA and/or kV according to patient size, use of iterative reconstruction technique) 2010 [employer]- All Rights Reserved
--- NOTE | 2017-02-27 19:28 | PDOC PROGRESS REPORT ---
Subjective Progress Note for:: 02/27/17 Subjective:: Patient was seen by the bedside, CT chest that was done today showed improvement in the pneumonia process Physical Exam Vital Signs: Temp Pulse Resp BP Pulse Ox 98.7 F 86 22 H 116/70 99 02/27/17 16:16 02/27/17 16:16 02/27/17 16:16 02/27/17 16:16 02/27/17 16:16 Intake & Output 02/26/17 02/27/17 02/28/17 06:59 06:59 06:59 Intake Total 2696 1713 440 Output Total 3520 2700 2200 Balance -829 -901 -1760 Weight 81 kg 79.6 kg General appearance: PRESENT: no acute distress Eye exam: PRESENT: PERRLA Respiratory exam: PRESENT: clear to auscultation danitza Cardiovascular exam: PRESENT: +S1, +S2 GI/Abdominal exam: PRESENT: soft Neurological exam: PRESENT: alert, CN II-XII grossly intact Results Laboratory Results: 02/26/17 04:30 02/27/17 04:00 02/27/17 04:00 Sodium 139.8 Potassium 3.9 Chloride 101 Carbon Dioxide 30 Anion Gap 9 BUN 15 Creatinine 0.48 L Est GFR ( Amer) > 60 Est GFR (Non-Af Amer) > 60 Glucose 82 Calcium 9.4 02/18/17 02/18/17 02/18/17 17:18 17:18 23:40 Creatine Kinase 200 H 172 H CK-MB (CK-2) 2.22 Troponin I 0.281 02/18/17 02/19/17 02/19/17 23:40 06:04 06:04 Creatine Kinase 147 H CK-MB (CK-2) 1.73 1.26 Troponin I 0.190 0.142 Impressions: Head CT 02/18/17 11:55 IMPRESSION: NO ACUTE INTRACRANIAL PROCESS. NO SIGNIFICANT CHANGE FROM PRIOR STUDY. Thyroid Ultrasound 02/19/17 00:00 IMPRESSION: STABLE NODULAR ENLARGEMENT OF THE RIGHT LOBE OF THE THYROID GLAND AND STABLE ISTHMUS NODULE. STATUS POST LEFT THYROIDECTOMY. Chest X-Ray 02/25/17 00:00 IMPRESSION: Persistent airspace disease at the left lung base, atelectasis versus pneumonia. Chest CT 02/27/17 00:00 IMPRESSION: 1. Persistent left lower lobe pneumonia improved from prior study. 2. Small right pleural effusion and minimal right basilar atelectasis. 3. Stable mass in the superior mediastinum consistent with thyroid lesion. Assessment & Plan - Diagnosis (1) Acute hypoxemic respiratory failure Is this a current diagnosis for this admission?: Yes (2) Left lower lobe pneumonia Qualifiers: Pneumonia type: due to unspecified organism Qualified Code(s): J18.1 - Lobar pneumonia, unspecified organism Is this a current diagnosis for this admission?: Yes (3) Thyroid mass Is this a current diagnosis for this admission?: Yes (4) Dementia Qualifiers: Dementia type: Alzheimer's disease Alzheimer's disease onset: late- onset Dementia behavioral disturbance: with behavioral disturbance Qualified Code(s): G30.1 - Alzheimer's disease with late onset; F02.81 - Dementia in other diseases classified elsewhere with behavioral disturbance Is this a current diagnosis for this admission?: Yes (5) Decubitus ulcer of sacral region, stage 1 Is this a current diagnosis for this admission?: Yes (6) Chronic atrial fibrillation Is this a current diagnosis for this admission?: Yes (7) Elevated troponin Is this a current diagnosis for this admission?: Yes (8) Sepsis Qualifiers: Sepsis type: sepsis due to unspecified organism Qualified Code(s): A41.9 - Sepsis, unspecified organism Is this a current diagnosis for this admission?: Yes - Plan Summary Plan Summary: She will receive antibiotic for 1-2 more days then discharged home
[2017-02-27] MEDS: DONEPEZIL HCL 5 MG TABLET PO SCH (22:25)
[2017-02-27] MEDS: MONTELUKAST SODIUM 10 MG TABLET PO SCH (22:25)
[2017-02-28] MEDS: PIPERACILLIN SODIUM/TAZOBACTAM 3.375 GM in NORMAL SALINE 100 ML IV SCH ×2 (03:59→09:02)
[2017-02-28] MEDS: ALPRAZOLAM 0.5 MG TABLET PO SCH ×3 (06:13→22:00)
[2017-02-28] MEDS: TRAMADOL HCL 50 MG TABLET PO SCH ×3 (06:14→17:55)
[2017-02-28] MEDS: ACETAMINOPHEN 325 MG TABLET PO SCH ×3 (06:14→17:55)
[2017-02-28 06:16] LABS: ANION GAP 12 (5-19); BLOOD UREA NITROGEN 18 mg/dL (7-20); CALCIUM 9.9 mg/dL (8.4-10.2); CARBON DIOXIDE 31 mmol/L (22-30); CHLORIDE 98 mmol/L (98-107); CREATININE RESULT 0.57 mg/dL (0.52-1.25); GLUCOSE 83 mg/dL (75-110); POTASSIUM 3.8 mmol/L (3.6-5.0); SODIUM 140.5 mmol/L (137-145)
[2017-02-28] MEDS: APIXABAN 2.5 MG TABLET PO SCH ×2 (06:30→17:55)
[2017-02-28] MEDS: LACTOBACILLUS ACIDOPHILUS 250 MG TAB PO SCH ×2 (09:02→17:55)
[2017-02-28] MEDS: FUROSEMIDE INJ/PF 20 MG/2 ML SDV IV SCH (09:02)
[2017-02-28] MEDS: MEGESTROL ACETATE 20 MG TABLET PO SCH ×2 (09:02→17:55)
[2017-02-28] MEDS: METOPROLOL SUCCINATE 50 MG TAB.SR.24H PO SCH (09:03)
--- NOTE | 2017-02-28 19:46 | PDOC DISCHARGE SUMMARY ---
General - Admit/Disc Date/PCP Admission Date/Primary Care Provider: 02/18/17 16:07 KEVIN BRANNON MD Discharge Date: 02/28/17 - Discharge Diagnosis (1) Acute hypoxemic respiratory failure Is this a current diagnosis for this admission?: Yes (2) Left lower lobe pneumonia Is this a current diagnosis for this admission?: Yes (3) Thyroid mass Is this a current diagnosis for this admission?: Yes (4) Dementia Is this a current diagnosis for this admission?: Yes (5) Decubitus ulcer of sacral region, stage 1 Is this a current diagnosis for this admission?: Yes (6) Chronic atrial fibrillation Is this a current diagnosis for this admission?: Yes (7) Elevated troponin Is this a current diagnosis for this admission?: Yes (8) Sepsis Is this a current diagnosis for this admission?: Yes - Additional Information Resuscitation Status: Full Code Home Medications: Alprazolam [Xanax 0.5 mg Tablet] 0.5 mg PO TID 02/18/17 Apixaban [Eliquis 2.5 mg Tablet] 2.5 mg PO Q12 02/18/17 Dexlansoprazole [Dexilant 30 mg Capsule] 30 mg PO DAILY 02/18/17 Diclofenac Sodium [Voltaren] 4 gm TP ASDIR PRN 02/18/17 Docusate Sodium [Dok] 100 mg PO DAILYP PRN 02/18/17 Donepezil HCl [Aricept] 10 mg PO QHS 02/18/17 Ketotifen Fumarate [Zaditor] 5 ml OP BID 02/18/17 Loratadine [Claritin 10 mg Tablet] 10 mg PO DAILY 02/18/17 Megestrol Acetate 40 mg PO BID 02/18/17 Metoprolol Succinate [Toprol Xl 50 mg Tab.sr] 50 mg PO DAILY 02/18/17 Mirtazapine [Remeron] 30 mg PO QHS 02/18/17 Montelukast Sodium [Singulair 10 mg Tablet] 10 mg PO QHS 02/18/17 Nitrofurantoin Monohyd/M-Cryst [Nitrofurantoin [place]-Mcr 100 mg] 100 mg PO Q12 Tramadol HCl/Acetaminophen [Tramadol-Acetaminophn 37.5-325] 1 tab PO Q6 History of Present Illness History of Present Illness: MAGDALENO NAVAS is a 81 year old female with a history of dementia, she presented to the emergency room for evaluation of shortness of breath, respiratory distress ,family stated that patient was having shortness of breath associated with white foam coming out of her mouth and nose. She has no history of seizure , she was seen in the emergency room yesterday for evaluation of headache, CT head was done and it was negative. Patient was transferred from home to the emergency room by EMS ,the oxygen saturation was 83% on room air. In the Emergency room chest x-ray was done and it was negative for any acute pathology.Hemogram showed leukocytosis, WBC was 20,000, there was lactic acidosis ,she also had fever with 101 temperature. The presentation was consistent with pneumonia though the chest x-ray did not suggest pneumonia, but because the presentation was consistent with pneumonia I requested for CT chest without contrast. 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 She has multiple comorbid conditions including chronic debilitation, chronic atrial fibrillation, sedentary life style. On examination on the floor she has sacral decubiti ulcer in various stages. when she arrived in the emergency room, the breathing was supported with noninvasive positive pressure ventilation, BiPAP machine, she was still requiring the device when she arrived in intermediate care unit. Hospital Course Hospital Course: She was admitted because of left lower lobe pneumonia, sepsis, she was treated with IV antibiotic, cefepime and Levaquin. She also had decubiti ulcer of the sacrum and the heel that was present on admission. This was managed with dressing. On admission she had hypoxemia due to pneumonia, she required oxygen via nasal cannula. There was also associated leukocytosis, this is all resolved with treatment. She has dementia and she is sedentary.she has a thyroid mass that has been present for more than 3 years Physical Exam Vital Signs: Temp Pulse Resp BP Pulse Ox 99.1 F 83 20 132/67 H 95 02/28/17 15:33 02/28/17 15:33 02/28/17 15:33 02/28/17 15:33 02/28/17 15:33 Intake & Output 02/27/17 02/28/17 03/01/17 06:59 06:59 06:59 Intake Total 1713 1547 366 Output Total 2708 6647 1400 Balance -512 -3976 -1035 Weight 79.6 kg 80.4 kg General appearance: PRESENT: no acute distress Eye exam: PRESENT: PERRLA Respiratory exam: PRESENT: clear to auscultation danitza Cardiovascular exam: PRESENT: +S1, +S2 GI/Abdominal exam: PRESENT: soft Neurological exam: PRESENT: alert, CN II-XII grossly intact Results Laboratory Results: 02/26/17 04:30 02/28/17 05:08 02/28/17 05:08 Sodium 140.5 Potassium 3.8 Chloride 98 Carbon Dioxide 31 H Anion Gap 12 BUN 18 Creatinine 0.57 Est GFR ( Amer) > 60 Est GFR (Non-Af Amer) > 60 Glucose 83 Calcium 9.9 02/18/17 02/18/17 02/18/17 17:18 17:18 23:40 Creatine Kinase 200 H 172 H CK-MB (CK-2) 2.22 Troponin I 0.281 02/18/17 02/19/17 02/19/17 23:40 06:04 06:04 Creatine Kinase 147 H CK-MB (CK-2) 1.73 1.26 Troponin I 0.190 0.142 Impressions: Head CT 02/18/17 11:55 IMPRESSION: NO ACUTE INTRACRANIAL PROCESS. NO SIGNIFICANT CHANGE FROM PRIOR STUDY. Thyroid Ultrasound 02/19/17 00:00 IMPRESSION: STABLE NODULAR ENLARGEMENT OF THE RIGHT LOBE OF THE THYROID GLAND AND STABLE ISTHMUS NODULE. STATUS POST LEFT THYROIDECTOMY. Chest X-Ray 02/25/17 00:00 IMPRESSION: Persistent airspace disease at the left lung base, atelectasis versus pneumonia. Chest CT 02/27/17 00:00 IMPRESSION: 1. Persistent left lower lobe pneumonia improved from prior study. 2. Small right pleural effusion and minimal right basilar atelectasis. 3. Stable mass in the superior mediastinum consistent with thyroid lesion.
[2017-02-28] MEDS: DONEPEZIL HCL 5 MG TABLET PO SCH (22:00)
[2017-02-28] MEDS: MONTELUKAST SODIUM 10 MG TABLET PO SCH (22:00)
[2017-03-01] MEDS: ACETAMINOPHEN 325 MG TABLET PO SCH ×2 (00:01→06:19)
[2017-03-01] MEDS: TRAMADOL HCL 50 MG TABLET PO SCH ×2 (06:18)
[2017-03-01] MEDS: APIXABAN 2.5 MG TABLET PO SCH (06:20)
[2017-03-01] MEDS: ALPRAZOLAM 0.5 MG TABLET PO SCH (06:20)
[2017-03-01] MEDS: METOPROLOL SUCCINATE 50 MG TAB.SR.24H PO SCH (09:53)
[2017-03-01] MEDS: LACTOBACILLUS ACIDOPHILUS 250 MG TAB PO SCH (09:53)
[2017-03-01] MEDS: MEGESTROL ACETATE 20 MG TABLET PO SCH (09:54)
[2017-03-01] MEDS: FUROSEMIDE INJ/PF 20 MG/2 ML SDV IV SCH (09:54)
[2017-03-01 11:32] VITALS: BP 156/109
== END 2017-03-01 12:41 | disposition home or self-care (01) | DRG 871 ==
LOC: ER 08:31 → EH 13:25 → UNDOADMIN 13:25 → 3W 15:30 → EH 15:30 → 3W 16:07
PROVIDERS: ADMIT Internal Medicine; ATTEND Internal Medicine
PROC: 5A09357 Assistance with Respiratory Ventilation, Less than 24 Consecutive Hours, Continuous Positive Airway Pressure (ICD-10-PCS; 2017-02-18)
PROC: 3E0F73Z Introduction of Anti-inflammatory into Respiratory Tract, Via Natural or Artificial Opening (ICD-10-PCS; 2017-02-20)
PROC: 02HV33Z Insertion of Infusion Device into Superior Vena Cava, Percutaneous Approach (ICD-10-PCS; principal; 2017-02-22)
PROC: B548ZZA Ultrasonography of Superior Vena Cava, Guidance (ICD-10-PCS; 2017-02-22)
DX: A41.9 Sepsis, unspecified organism (principal); J96.01 Acute respiratory failure with hypoxia; J18.9 Pneumonia, unspecified organism; F02.81 Dementia in other diseases classified elsewhere, unspecified severity, with behavioral disturbance; E07.9 Disorder of thyroid, unspecified; L89.151 Pressure ulcer of sacral region, stage 1; L89.152 Pressure ulcer of sacral region, stage 2; I48.2 Chronic atrial fibrillation; E89.0 Postprocedural hypothyroidism; I10 Essential (primary) hypertension; K44.9 Diaphragmatic hernia without obstruction or gangrene; M19.90 Unspecified osteoarthritis, unspecified site; G30.1 Alzheimer's disease with late onset; L89.609 Pressure ulcer of unspecified heel, unspecified stage; L08.89 Other specified local infections of the skin and subcutaneous tissue; B95.2 Enterococcus as the cause of diseases classified elsewhere; B96.5 Pseudomonas (aeruginosa) (mallei) (pseudomallei) as the cause of diseases classified elsewhere; I87.2 Venous insufficiency (chronic) (peripheral); Z87.891 Personal history of nicotine dependence; Z79.899 Other long term (current) drug therapy
CPT/HCPCS: 36415; 70450; 71010; 71250; 76536; 80048; 80053; 80076; 80307; 81001; 82150; 82550; 82553; 82570; 82803; 83036; 83605; 83690; 83880; 84100; 84156; 84439; 84443; 84484; 85025; 85610; 85730; 87040; 87070; 87075; 87077; 87086; 87186; 87205; 93005; 93010; 94660; 96361; 96365; 99291; J0295; J0692; J1940; J1956; J2543; J3490; J7030

== ENCOUNTER 2017-03-08 07:01 | Emergency (ER) | payer MEDICARE, MEDICAID ==
--- NOTE | 2017-03-08 07:26 | ER Document Report ---
ED Headache - General Chief Complaint: Headache <24 hrs old Stated Complaint: HEADACHE Time Seen by Provider: 03/08/17 07:16 Mode of Arrival: Ambulatory Information source: Relative Notes: Pt Is an 81-year-old demented Female brought into the emergency department today for headache that started at 4 AM. Patient's daughter states that the last time she had a headache she was diagnosed with pneumonia days later. Patient has a history of migraines per daughter. Patient was admitted on the 10th of this month for 11 days for an aspiration pneumonia per daughter. Daughter states that she has gotten better from that. She denies that she has complained of any pain other than the headache, had any fever or chills, dysuria , hematuria, cough. she lives at home with her daughter. TRAVEL OUTSIDE OF THE [place] IN LAST 30 DAYS: No - Related Data Allergies/Adverse Reactions: No Known Allergies Allergy (Unverified 02/07/15 09:40) Past Medical History - General Information source: Relative - Social History Smoking Status: Unknown if Ever Smoked Family History: Reviewed & Not Pertinent - Past Medical History Cardiac Medical History: Reports: Hx Atrial Fibrillation, Hx Congestive Heart Failure, Hx Hypertension GI Medical History: Reports: Hx Hiatal Hernia Musculoskeltal Medical History: Reports Hx Arthritis Psychiatric Medical History: Reports: Hx Dementia Past Surgical History: Reports: Hx Section - x2. Denies: Hx Mastectomy , Hx Open Heart Surgery, Hx Pacemaker - Immunizations Immunizations up to date: Yes Hx Diphtheria, Pertussis, Tetanus Vaccination: Yes Review of Systems - Review of Systems Constitutional: No symptoms reported EENT: No symptoms reported Cardiovascular: No symptoms reported Respiratory: See HPI Gastrointestinal: No symptoms reported Genitourinary: No symptoms reported Female Genitourinary: No symptoms reported Musculoskeletal: No symptoms reported Skin: No symptoms reported Hematologic/Lymphatic: No symptoms reported Neurological/Psychological: See HPI Physical Exam - Vital signs Vitals: Temp Pulse Resp BP Pulse Ox 97.8 F 56 L 18 136/67 H 94 03/08/17 07:12 03/08/17 07:12 03/08/17 07:12 03/08/17 07:12 03/08/17 07:12 - Notes Notes: PHYSICAL EXAMINATION: GENERAL: demented, in no acute distress. HEAD: Atraumatic, normocephalic. EYES: Pupils equal round and reactive to light, extraocular movements intact, sclera anicteric, conjunctiva are normal. ENT: airway patent NECK: Normal range of motion, supple without lymphadenopathy LUNGS: CTAB and equal. No wheezes rales or rhonchi. HEART: Regular rate and rhythm without murmurs ABDOMEN: Soft, no tenderness. No guarding, no rebound airway patent EXTREMITIES: no pitting edema. No cyanosis. NEUROLOGICAL: Cranial nerves grossly intact. decreased motor function in all extremities, normal sensation PSYCH: demented, moans at touch everywhere SKIN: Warm, Dry, normal turgor, no rashes or lesions noted Course - Re-evaluation Re-evalutation: 03/08/17 09:39 Lab work is unremarkable today, white blood cell count mildly elevated at 11.4, chest x-ray has been improving pneumonia in the left lower lobe , I will put her on outpatient antibiotics to cover for this, the patient is afebrile with normal vital signs without cough, clear lung sounds head CT reports no acute abnormality. Dr. Rodríguez was consulted on questionable normal pressure hydrocephalus read as an impression on head CT, but patient is demented so gait abnormality, urinary incontinence and cognitive disturbance are normal for her. Patient has not had a headache since arriving at the emergency department. 03/08/17 09:40 03/08/17 09:42 - Vital Signs Vital signs: Temp Pulse Resp BP Pulse Ox 98.7 F 54 L 16 142/68 H 95 03/08/17 10:31 03/08/17 10:31 03/08/17 10:31 03/08/17 10:31 03/08/17 10:31 - Laboratory Result Diagrams: 03/08/17 07:46 03/08/17 07:46 Laboratory results interpreted by me: 03/08/17 03/08/17 03/08/17 07:46 07:46 09:00 WBC 11.5 H RBC 3.50 L Hgb 11.3 L Hct 34.8 L MCV 100 H Absolute Lymphocytes 5.1 H Chloride 108 H Carbon Dioxide 20 L Calcium 10.8 H Urine Blood SMALL H Ur Leukocyte Esterase TRACE H Discharge - Discharge Clinical Impression: Pneumonia Qualifiers: Pneumonia type: due to unspecified organism Laterality: left Lung location: lower lobe of lung Qualified Code(s): J18.1 - Lobar pneumonia, unspecified organism Headache Qualifiers: Headache type: unspecified Headache chronicity pattern: unspecified pattern Intractability: not intractable Qualified Code(s): R51 - Headache Condition: Stable Disposition: HOME, SELF-CARE Additional Instructions: Return immediately for any new or worsening symptoms. Follow up with primary care provider, call tomorrow to make followup appointment. Prescriptions: Azithromycin 250 mg PO DAILY #38 ml Referrals: KEVIN BRANNON MD [Primary Care Provider] - Follow up as needed
[2017-03-08 07:59] LABS: ABSOLUTE EOSINOPHILS # (AUTO) 0.5 10^3/uL (0.0-0.6); ABSOLUTE LYMPHOCYTES (AUTO) 5.1 10^3/uL (0.5-4.7); ABSOLUTE MONOCYTES (AUTO) 0.7 10^3/uL (0.1-1.4); ABSOLUTE NEUT (AUTO) 5.2 10^3/uL (1.7-8.2); BASOPHILS % (AUTO) 0.1 % (0-2); HEMATOCRIT 34.8 % (36.0-47.0); HEMOGLOBIN 11.3 g/dL (12.0-15.5); HGB HCT DIFFERENCE -0.9; LYMPHOCYTES % (AUTO) 44.1 % (13-45); MEAN CORPUSCULAR HEMOGLOBIN 32.3 pg (27.0-33.4); MEAN CORPUSCULAR HGB CONC 32.4 g/dL (32.0-36.0); MEAN CORPUSCULAR VOLUME 100 fl (80-97); MONOCYTES % (AUTO) 6.4 % (3-13); RED CELL DISTRIBUTION WIDTH 13.9 % (11.5-14.0); SEGMENTED NEUTROPHILS % (AUTO) 45.4 % (42-78); WHITE BLOOD COUNT 11.5 10^3/uL (4.0-10.5)
[2017-03-08 08:19] LABS: ALANINE AMINOTRANSFERASE 31 U/L (9-52); ALBUMIN 3.7 g/dL (3.5-5.0); ALKALINE PHOSPHATASE 84 U/L (38-126); ANION GAP 13 (5-19); ASPARTATE AMINO TRANSFERASE 19 U/L (14-36); BILIRUBIN,DIRECT 0.4 mg/dL (0.0-0.4); BILIRUBIN,TOTAL 0.6 mg/dL (0.2-1.3); BLOOD UREA NITROGEN 17 mg/dL (7-20); CALCIUM 10.8 mg/dL (8.4-10.2); CARBON DIOXIDE 20 mmol/L (22-30); CHLORIDE 108 mmol/L (98-107); CREATININE RESULT 0.52 mg/dL (0.52-1.25); GLUCOSE 82 mg/dL (75-110); POTASSIUM 4.3 mmol/L (3.6-5.0); SODIUM 141.1 mmol/L (137-145); TOTAL PROTEIN 7.4 g/dL (6.3-8.2)
--- NOTE | 2017-03-08 08:30 | RADIOLOGY REPORT (SQ) ---
EXAM DESCRIPTION: CHEST SINGLE VIEW COMPLETED DATE/TIME: 03/08/2017 8:08 am REASON FOR STUDY: recent pneumonia, medeiros COMPARISON: 02/25/2017 EXAM PARAMETERS: NUMBER OF VIEWS: One view. TECHNIQUE: Single frontal radiographic view of the chest acquired. RADIATION DOSE: NA LIMITATIONS: None. FINDINGS: LUNGS AND PLEURA: There appears to be a limited residual infiltrate in the left lower lobe with significant since the study of . MEDIASTINUM AND HILAR STRUCTURES: No masses. Contour normal. HEART AND VASCULAR STRUCTURES: Heart normal in size. Normal vasculature. BONES: No acute findings. HARDWARE: None in the chest. OTHER: No other significant finding. IMPRESSION: There is limited residual infiltrate in the left lower lobe. TECHNICAL DOCUMENTATION: JOB ID: [id number]
--- NOTE | 2017-03-08 08:34 | RADIOLOGY REPORT (SQ) ---
EXAM DESCRIPTION: CT HEAD WITHOUT COMPLETED DATE/TIME: 03/08/2017 8:18 am REASON FOR STUDY: headache since 4am COMPARISON: None. TECHNIQUE: Axial images acquired through the brain without intravenous contrast. Images reviewed wi bone, brain and subdural windows. Images stored on PACS. All CT scanners at this facility use dose modulation, iterative reconstruction, and/or weight based d osing when appropriate to reduce radiation dose to as low as reasonably achievable (ALARA). [facility]: Dose Right [facility]: CareDose [facility]: Dose Right [facility]: Teradose 4D [facility]: [employer] RADIATION DOSE: Up-to-date CT equipment and radiation dose reduction techniques were employed. CTDIv ol: 64.6 mGy. DLP: 1421 mGy-cm. mGy. LIMITATIONS: None. FINDINGS: VENTRICLES: The ventricles are prominent. The frontal and occipital horns are rounded. CEREBRUM: Cortical atrophy is present. There are areas of decreased attenuation in the periventricul ar white matter. No masses. No hemorrhage. No midline shift. Normal mota/white matter differentia tion. No evidence for acute infarction. CEREBELLUM: No masses. No hemorrhage. No alteration of density. No evidence for acute infarction. EXTRAAXIAL SPACES: No fluid collections. No masses. ORBITS AND GLOBE: No intra- or extraconal masses. Normal contour of globe without masses. CALVARIUM: No fracture. PARANASAL SINUSES: No fluid or mucosal thickening. SOFT TISSUES: No mass or hematoma. OTHER: No other significant finding. IMPRESSION: 1. Involutional changes of aging with chronic microvascular ischemic disease. 2. The ventricles are prominent slightly disproportionately to the degree of atrophy present. Is th ere clinical evidence of or history of normal pressure hydrocephalus? TECHNICAL DOCUMENTATION: JOB ID: [id number] Quality ID # [id number]: Final reports with documentation of one or more dose reduction techniques (e.g., Au tomated exposure control, adjustment of the mA and/or kV according to patient size, use of iterative reconstruction technique) 2010 [employer]- All Rights Reserved
[2017-03-08 09:23] LABS: APPEARANCE,URINE SLIGHTLY-CLOUDY; BILIRUBIN,URINE NEGATIVE (NEGATIVE); GLUCOSE, URINE NEGATIVE (NEGATIVE); KETONES,URINE NEGATIVE (NEGATIVE); LEUKOCYTE ESTERASE,URINE TRACE (NEGATIVE); NITRITE,URINE NEGATIVE (NEGATIVE); PROTEIN,URINE NEGATIVE (NEGATIVE); URINE SPECIFIC GRAVITY 1.008; UROBILINOGEN,URINE NEGATIVE mg/dL (<2.0)
[2017-03-08] MEDS ORDERED: ACETAMINOPHEN SUSP 160 MG/5 ML ORAL SYRING PO ONE (09:54)
[2017-03-08] MEDS ORDERED: ACETAMINOPHEN 325 MG TABLET PO ONE (10:01)
[2017-03-08 10:32] VITALS: BP 142/68
== END 2017-03-08 13:16 | disposition home or self-care (01) ==
LOC: ER 07:01
DX: J18.1 Lobar pneumonia, unspecified organism (principal); R51 Headache
CPT/HCPCS: 99284; 51701; 36415; 85025; 80053; 81001; 71010; 70450; A9270

== ENCOUNTER 2017-09-23 02:30 | Inpatient (IN) | payer MEDICARE, MEDICAID ==
[2017-09-23] MEDS ORDERED: PIPERACILLIN/TAZOBACTAM 3.375 GM VIAL IV ONE (02:56)
[2017-09-23] MEDS ORDERED: VANCOMYCIN HCL INJ 1000 MG VIAL IV ONE (02:56)
[2017-09-23 03:08] LABS: HEMATOCRIT 37.2 % (36.0-47.0); HEMOGLOBIN 12.5 g/dL (12.0-15.5); MEAN CORPUSCULAR HEMOGLOBIN 32.3 pg (27.0-33.4); MEAN CORPUSCULAR HGB CONC 33.6 g/dL (32.0-36.0); MEAN CORPUSCULAR VOLUME 96 fl (80-97); PLATELET COUNT 331 10^3/uL (150-450); RED BLOOD COUNT 3.86 10^6/uL (3.72-5.28); RED CELL DISTRIBUTION WIDTH 13.4 % (11.5-14.0)
[2017-09-23 03:29] LABS: ALANINE AMINOTRANSFERASE 20 U/L (9-52); ALBUMIN 3.3 g/dL (3.5-5.0); ALKALINE PHOSPHATASE 74 U/L (38-126); ANION GAP 15 (5-19); ASPARTATE AMINO TRANSFERASE 13 U/L (14-36); BILIRUBIN,DIRECT 0.4 mg/dL (0.0-0.4); BILIRUBIN,TOTAL 0.5 mg/dL (0.2-1.3); BLOOD UREA NITROGEN 12 mg/dL (7-20); CALCIUM 9.9 mg/dL (8.4-10.2); CARBON DIOXIDE 23 mmol/L (22-30); CHLORIDE 108 mmol/L (98-107); GLUCOSE 107 mg/dL (75-110); POTASSIUM 3.1 mmol/L (3.6-5.0); SODIUM 145.6 mmol/L (137-145); TOTAL PROTEIN 6.6 g/dL (6.3-8.2)
[2017-09-23 03:32] LABS: ABSOLUTE LYMPHOCYTES# (MANUAL) 7.1 10^3/uL (0.5-4.7); ABSOLUTE MONOCYTES # (MANUAL) 0.7 10^3/uL (0.1-1.4); BAND NEUTROPHILS % (MANUAL) 2 % (3-5); BASOPHILS % (MANUAL) 0 % (0-2); EOSINOPHILS % (MANUAL) 1 % (0-6); LYMPHOCYTES % (MANUAL) 30 % (13-45); MONOCYTES % (MANUAL) 3 % (3-13); SEGMENTED NEUTROPHILS % (MAN) 63 % (42-78); TOTAL CELLS COUNTED 100
[2017-09-23 03:36] LABS: PLATELET CLUMPS PRESENT; RBC MORPHOLOGY COMMENT NORMO-CYTIC/CHROMIC
[2017-09-23 03:52] LABS: PLATELET COMMENT ADEQUATE
--- NOTE | 2017-09-23 04:46 | RADIOLOGY REPORT (SQ) ---
EXAM DESCRIPTION: 1. CT of the pelvis without contrast. 2. CT of the right lower extremity without contrast. CLINICAL HISTORY: sacral decubitus ulcer with cellulitis into right COMPARISON: None Available. TECHNIQUE: Axial CT images of the pelvis and right lower extremity obtained without IV contrast. FINDINGS: Pelvis:No abnormalities in the visualized portions of the liver, gallbladder, and spleen. Aortoiliac atherosclerosis. Visualized IVC is unremarkable. Uterus is not enlarged. No adnexal masses. No free peritoneal air identified. Urinary bladder is unremarkable. No free pelvic fluid or lymphadenopathy. Scattered diverticula of the visualized bowel without pericolic fat stranding. No dilated loops of the visualized large or small bowel. Normal appendix. There is mild fat stranding in the subcutaneous soft tissues overlying the inferior sacrum without definite wound or well-circumscribed fluid collection. CT of the right lower extremity: Atherosclerotic calcification of the arterial system of the right lower extremity. No well-circumscribed soft tissue fluid collections. Mild fat stranding in the subcutaneous soft tissues involving the posterior aspect of the proximal and mid thigh. Bone windows of the pelvis and right lower extremity demonstrate osteopenia. Degenerative changes of the visualized lumbar spine. Degenerative change of the sacroiliac joints. Bilateral joint space narrowing and marginal osteophytosis. 3 compartment osteoarthritic change of the knee. No lytic osseous lesions are definitely identified. DLP: 888.25 mGy-cm IMPRESSION: 1. Mild inflammatory change in the subcutaneous soft tissues overlying the sacrum as well as the posterior proximal and mid right thigh without well-circumscribed fluid collection or definite open wound. These findings could be seen with cellulitis. No definite lytic osseous lesion. If there is continued concern for osteomyelitis contrast-enhanced MRI could provide additional characterization. 2. Diverticulosis without evidence of diverticulitis. This exam was performed according to our departmental dose-optimization program, which includes automated exposure control, adjustment of the mA and/or kV according to patient size and/or use of iterative reconstruction technique.
--- NOTE | 2017-09-23 04:53 | ER Document Report ---
ED General - General Chief Complaint: Leg Pain Stated Complaint: RIGHT LEG PAIN Time Seen by Provider: 09/23/17 02:48 Notes: Patient is an 82-year-old female who presents with complaint of redness to her right leg that began earlier today around 7 PM. Patient has not had any fevers. The redness is continued to spread since 7 PM. Patient also has a sacral decubitus ulcer the daughter thinks it is probably spreading from there. She has been treated at home for this ulcer for a long period time. Patient is bedridden. Patient does have dementia. Daughter says at baseline the patient will yell and scream every time she is touched even if she is not in pain. No other complaints at this time. TRAVEL OUTSIDE OF THE [place] IN LAST 30 DAYS: No - Related Data Allergies/Adverse Reactions: No Known Allergies Allergy (Verified 09/23/17 03:26) Past Medical History - Social History Smoking Status: Unknown if Ever Smoked Frequency of alcohol use: None Drug Abuse: None Family History: Reviewed & Not Pertinent Patient has suicidal ideation: No Patient has homicidal ideation: No - Past Medical History Cardiac Medical History: Reports: Hx Atrial Fibrillation, Hx Congestive Heart Failure, Hx Hypertension Renal/ Medical History: Denies: Hx Peritoneal Dialysis GI Medical History: Reports: Hx Hiatal Hernia Musculoskeltal Medical History: Reports Hx Arthritis Psychiatric Medical History: Reports: Hx Dementia Past Surgical History: Reports: Hx Section - x2, Hx Thyroid Surgery - removal of left side. Denies: Hx Mastectomy, Hx Open Heart Surgery, Hx Pacemaker - Immunizations Immunizations up to date: Yes Hx Diphtheria, Pertussis, Tetanus Vaccination: Yes Review of Systems - Review of Systems Notes: My Normal Review Basic REVIEW OF SYSTEMS: CONSTITUTIONAL : Denies fever, chills, or sweats. Denies recent illness. EENT: Denies eye, ear, throat, or mouth pain or symptoms. Denies nasal or sinus congestion. CARDIOVASCULAR: Denies chest pain. RESPIRATORY: Denies cough, cold, or chest congestion. Denies shortness of breath, difficulty breathing, or wheezing. GASTROINTESTINAL: Denies abdominal pain. Denies nausea, vomiting, or diarrhea. Denies constipation. Last BM: MUSCULOSKELETAL: Denies neck or back pain or joint pain or swelling. SKIN: Redness of her right lower extremity. NEUROLOGICAL: Denies altered mental status or loss of consciousness. Denies headache. Denies weakness or paralysis or loss of use of either side. Denies problems with gait or speech. Denies sensory or motor loss. ALL OTHER SYSTEMS REVIEWED AND NEGATIVE. Physical Exam - Vital signs Vitals: Pulse 85 09/23/17 02:30 - Notes Notes: General Appearance: Well nourished, alert, cooperative, no acute distress, mild obvious discomfort. Vitals: reviewed, See vital signs table. Head: no swelling or tenderness to the head Eyes: PERRL, EOMI, Conjuctiva clear Mouth: No decreasd moisture Lungs: No wheezing, No rales, No rhonci, No accessory muscle use, good air exchange bilaterally. Heart: Normal rate, Regular rythm, No murmur, no rub Abdomen: Normal BS, soft, No rigidity, No abdominal tenderness, No guarding, no rebound, no abdominal masses, no organomegaly Extremities: Pain and swelling in the right lower extremity down to mid toussaint. Skin: Patient has a sacral decubitus ulcer with skin breakdown. Ulcerations to suicide continues to issue itself. There is redness of the skin all around this appears to be chronic. She now has redness spreading into the right lower extremity and around the right lower extremity which appears to be new and most likely is secondary infection coming from the skin breakdown around the sacrum. Neuro: speech clear, oriented 1. Easily agitated affect. Course - Re-evaluation Re-evalutation: 09/23/17 05:07 Patient's right lower extremity reevaluation still has the same amount of cellulitis and redness. Does not seem to be spreading in the 2 hours that she has been here. I did obtain a CT scan. Does not show any evidence of abscess. I do not suspect excising fasciitis and that there is no crepitance to palpation and the skin does not show any evidence of gas. I did speak with Dr. Hall, patient's primary care doctor, who agrees to admit the patient. I have given the patient's Zosyn and vancomycin to begin with. I did speak with the patient's daughter. She is agreeable to having patient admitted. Patient' s daughter says the patient is still a full code. Dictation of this chart was performed using voice recognition software; therefore, there may be some unintended grammatical errors. - Vital Signs Vital signs: Temp Pulse Resp BP Pulse Ox 99.0 F 93 19 129/75 H 99 09/23/17 02:37 09/23/17 02:37 09/23/17 04:23 09/23/17 04:23 09/23/17 04:23 - Laboratory Result Diagrams: 09/23/17 02:53 09/23/17 02:53 Laboratory results interpreted by me: 09/23/17 09/23/17 02:53 02:53 WBC 23.0 H Band Neutrophils % 2 L Abs Neuts (Manual) 15.0 H Abs Lymphs (Manual) 7.1 H Sodium 145.6 H Potassium 3.1 L Chloride 108 H Creatinine 0.49 L AST 13 L Albumin 3.3 L Discharge - Discharge Clinical Impression: Cellulitis Qualifiers: Site of cellulitis: extremity Site of cellulitis of extremity: lower extremity Laterality: right Qualified Code(s): L03.115 - Cellulitis of right lower limb Condition: Stable Disposition: ADMITTED INPATIENT Admitting Provider: [place] [facility] Admitted: Telemetry
[2017-09-23] MEDS ORDERED: (PENDING PHARMACY ID) (Tramadol Hcl/Acetaminophen [Tramadol-Acetaminophn 37.5-325] 1 TAB) PO PRN (12:08)
[2017-09-23] MEDS ORDERED: (PENDING PHARMACY ID) (Megestrol Acetate [Megestrol Acetate] 40 MG) PO SCH (12:15)
[2017-09-23] MEDS ORDERED: CETIRIZINE 10 MG TABLET PO ONE (15:00)
[2017-09-23] MEDS ORDERED: CLINDAMYCIN 600 MG/D5W RTU 600 MG/50 ML RTUPB IV ONE (15:00)
[2017-09-23] MEDS ORDERED: METOPROLOL SUCCINATE 50 MG TAB.SR.24H PO ONE (15:00)
[2017-09-23] MEDS ORDERED: APIXABAN 2.5 MG TABLET PO ONE (15:00)
[2017-09-23] MEDS ORDERED: MEGESTROL ACETATE 20 MG TABLET PO ONE (15:00)
[2017-09-23] MEDS ORDERED: NORMAL SALINE 1000 ML 1,000 ML IV PRN (15:00)
[2017-09-23 16:26] LABS: LIPASE 71.6 U/L (23-300); MAGNESIUM 1.4 mg/dL (1.6-2.3); PHOSPHORUS 2.5 mg/dL (2.5-4.5)
[2017-09-23 16:38] LABS: CREATINE KINASE MB 0.38 ng/mL (<4.55)
[2017-09-23 16:39] LABS: TROPONIN I < 0.012 ng/mL
[2017-09-23 17:40] LABS: FREE T4 (FREE THYROXINE) 1.19 ng/dL (0.78-2.19)
[2017-09-23 17:54] LABS: THYROID STIMULATING HORMONE 0.53 uIU/mL (0.47-4.68)
[2017-09-23] MEDS: APIXABAN 2.5 MG TABLET PO SCH (19:00)
[2017-09-23] MEDS ORDERED: (PENDING PHARMACY ID) (Donepezil Hcl [Aricept] 10 MG) PO SCH (22:00)
[2017-09-23 22:03] LABS: APPEARANCE,URINE TURBID; BILIRUBIN,URINE NEGATIVE (NEGATIVE); GLUCOSE, URINE NEGATIVE (NEGATIVE); KETONES,URINE NEGATIVE (NEGATIVE); LEUKOCYTE ESTERASE,URINE NEGATIVE (NEGATIVE); NITRITE,URINE NEGATIVE (NEGATIVE); PROTEIN,URINE NEGATIVE (NEGATIVE); URINE SPECIFIC GRAVITY 1.027; UROBILINOGEN,URINE NEGATIVE mg/dL (<2.0)
[2017-09-23 22:04] LABS: COLOR,URINE DARK YELLOW
[2017-09-23 22:09] LABS: URINE AMPHETAMINES SCREEN NEGATIVE; URINE BARBITURATES SCREEN NEGATIVE; URINE BENZODIAZEPINES SCREEN UNCONFIRMED POSITIVE; URINE COCAINE SCREEN NEGATIVE; URINE MARIJUANA (THC) SCREEN NEGATIVE; URINE METHADONE SCREEN NEGATIVE; URINE PHENCYCLIDINE SCREEN NEGATIVE
[2017-09-23] MEDS: CLINDAMYCIN 600 MG/D5W RTU 600 MG/50 ML RTUPB IV SCH (22:38)
[2017-09-23] MEDS: MONTELUKAST SODIUM 10 MG TABLET PO SCH (22:38)
[2017-09-23] MEDS: DONEPEZIL HCL 5 MG TABLET PO SCH (23:27)
[2017-09-23] MEDS: MIRTAZAPINE 15 MG TABLET PO SCH (23:27)
[2017-09-23] MEDS: MEGESTROL ACETATE 20 MG TABLET PO SCH (23:29)
[2017-09-23 23:30] LABS: CREATINE KINASE MB 0.56 ng/mL (<4.55)
[2017-09-23 23:37] LABS: TROPONIN I < 0.012 ng/mL
[2017-09-24] MEDS: TRAMADOL HCL 50 MG TABLET PO PRN ×2 (03:53→12:39)
[2017-09-24] MEDS: ACETAMINOPHEN 325 MG TABLET PO PRN (03:54)
[2017-09-24] MEDS: CLINDAMYCIN 600 MG/D5W RTU 600 MG/50 ML RTUPB IV SCH ×3 (05:05→22:17)
[2017-09-24] MEDS ORDERED: POTASSI CL 40 MEQ/NS 1L 1,000 ML IV PRN (07:52)
[2017-09-24] MEDS ORDERED: POTASSIUM CHLORIDE 20 MEQ/50 ML RTU IV SCH (08:00)
[2017-09-24 09:49] LABS: ABSOLUTE BASOPHILS # (AUTO) 0.1 10^3/uL (0.0-0.2); ABSOLUTE EOSINOPHILS # (AUTO) 0.4 10^3/uL (0.0-0.6); ABSOLUTE MONOCYTES (AUTO) 0.9 10^3/uL (0.1-1.4); ABSOLUTE NEUT (AUTO) 10.5 10^3/uL (1.7-8.2); BASOPHILS % (AUTO) 0.3 % (0-2); EOSINOPHILS % (AUTO) 2.3 % (0-6); HEMATOCRIT 32.8 % (36.0-47.0); LYMPHOCYTES % (AUTO) 36.9 % (13-45); MEAN CORPUSCULAR HEMOGLOBIN 32.8 pg (27.0-33.4); MEAN CORPUSCULAR HGB CONC 34.4 g/dL (32.0-36.0); MEAN CORPUSCULAR VOLUME 96 fl (80-97); MONOCYTES % (AUTO) 4.9 % (3-13); PLATELET COUNT 289 10^3/uL (150-450); RED BLOOD COUNT 3.43 10^6/uL (3.72-5.28); RED CELL DISTRIBUTION WIDTH 13.6 % (11.5-14.0); SEGMENTED NEUTROPHILS % (AUTO) 55.6 % (42-78); TOTAL CELLS COUNTED % (AUTO) 100 %; WHITE BLOOD COUNT 18.9 10^3/uL (4.0-10.5)
[2017-09-24 09:52] LABS: HEMOGLOBIN 11.3 g/dL (12.0-15.5)
[2017-09-24] MEDS: METOPROLOL SUCCINATE 50 MG TAB.SR.24H PO SCH (09:55)
[2017-09-24] MEDS: MEGESTROL ACETATE 20 MG TABLET PO SCH ×2 (09:55→22:17)
[2017-09-24] MEDS: CETIRIZINE 10 MG TABLET PO SCH (09:55)
[2017-09-24] MEDS ORDERED: POTASSIUM CHLORIDE 20 MEQ/50 ML RTU IV ONE (10:00)
[2017-09-24] MEDS: APIXABAN 2.5 MG TABLET PO SCH ×2 (10:18→22:12)
[2017-09-24 13:11] LABS: BLOOD UREA NITROGEN 13 mg/dL (7-20); CALCIUM 9.2 mg/dL (8.4-10.2); CHLORIDE 105 mmol/L (98-107); GLUCOSE 95 mg/dL (75-110); SODIUM 139.4 mmol/L (137-145)
[2017-09-24 13:25] LABS: ANION GAP 9 (5-19)
[2017-09-24 13:27] LABS: CARBON DIOXIDE 25 mmol/L (22-30); POTASSIUM 3.6 mmol/L (3.6-5.0)
[2017-09-24] MEDS: ALPRAZOLAM 0.5 MG TABLET PO PRN (13:45)
--- NOTE | 2017-09-24 14:47 | PDOC H&P ---
History of Present Illness Admission Date/PCP: 09/23/17 05:11 KEVIN BRANNON MD History of Present Illness: MAGDALENO NAVAS is a 82 year old female, she has advanced dementia she was brought to the emergency room for evaluation of extensive cellulitis of the right leg, there was associated leukocytosis. No reasonable history could be obtained from this patient because of her baseline dementia, she is sedentary, bed bound , history of chronic atrial fibrillation, pressure ulcer involving the sacrum. 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 Past Medical History Cardiac Medical History: Reports: Atrial Fibrillation, Hypertension GI Medical History: Reports: Hiatal Hernia Musculoskeltal Medical History: Reports: Arthritis Psychiatric Medical History: Reports: Dementia Past Surgical History Past Surgical History: Reports: Section - x2 Social History Smoking Status: Former Smoker Frequency of Alcohol Use: None Hx Recreational Drug Use: No Hx Prescription Drug Abuse: No - Advance Directive Resuscitation Status: Full Code Family History Family History: Reviewed & Not Pertinent Parental Family History Reviewed: Yes Children Family History Reviewed: Yes Sibling(s) Family History Reviewed.: Yes Medication/Allergy Home Medications: Alprazolam [Xanax 0.5 mg Tablet] 0.5 mg PO BIDP PRN 09/23/17 Apixaban [Eliquis 2.5 mg Tablet] 2.5 mg PO BID 09/23/17 Cetirizine HCl [Zyrtec 10 mg Tablet] 10 mg PO DAILY 09/23/17 Donepezil HCl [Aricept] 10 mg PO QHS 09/23/17 Megestrol Acetate 40 mg PO BID 09/23/17 Metoprolol Succinate [Toprol Xl 50 mg Tab.sr] 50 mg PO DAILY 09/23/17 Mirtazapine [Remeron] 30 mg PO QHS 09/23/17 Montelukast Sodium [Singulair 10 mg Tablet] 10 mg PO QHS 09/23/17 Tramadol HCl/Acetaminophen [Tramadol-Acetaminophn 37.5-325] 1 tab PO Q6HP PRN Allergies/Adverse Reactions: No Known Allergies Allergy (Verified 09/23/17 03:26) Review of Systems ROS unobtainable: Due to mental status Physical Exam Vital Signs: Temp Pulse Resp BP Pulse Ox 97.7 F 64 18 135/69 H 99 09/24/17 12:42 09/24/17 12:42 09/24/17 12:42 09/24/17 12:42 09/24/17 12:42 Intake & Output 09/23/17 09/24/17 09/25/17 06:59 06:59 06:59 Intake Total 540 150 Output Total 250 100 Balance 290 50 Weight 65.453 kg General appearance: PRESENT: no acute distress Head exam: PRESENT: atraumatic, normocephalic Eye exam: PRESENT: conjunctiva pink, EOMI, PERRLA Neck exam: PRESENT: full ROM Respiratory exam: PRESENT: clear to auscultation danitza Cardiovascular exam: PRESENT: RRR, +S1, +S2 GI/Abdominal exam: PRESENT: normal bowel sounds, soft Rectal exam: PRESENT: deferred Extremities exam: PRESENT: other - There is extensive redness, cellulitis of the right lower extremities Neurological exam: PRESENT: alert Psychiatric exam: PRESENT: appropriate affect, normal mood Skin exam: PRESENT: dry, intact, warm Results Laboratory Results: 09/24/17 08:26 09/24/17 12:39 09/23/17 09/23/17 09/23/17 15:59 15:59 16:50 WBC RBC Hgb Hct MCV MCH MCHC RDW Plt Count Seg Neutrophils % Lymphocytes % Monocytes % Eosinophils % Basophils % Absolute Neutrophils Absolute Lymphocytes Absolute Monocytes Absolute Eosinophils Absolute Basophils Sodium Potassium Chloride Carbon Dioxide Anion Gap BUN Creatinine Est GFR ( Amer) Est GFR (Non-Af Amer) Glucose Calcium Phosphorus 2.5 Magnesium 1.4 L Total Bilirubin AST ALT Alkaline Phosphatase Ammonia 21.1 Total Protein Albumin Triglycerides Cholesterol LDL Cholesterol Direct VLDL Cholesterol HDL Cholesterol Amylase 43 Lipase 71.6 TSH 0.53 Free T4 1.19 Urine Color Urine Appearance Urine pH Ur Specific [place] Urine Protein Urine Glucose (UA) Urine Ketones Urine Blood Urine Nitrite Ur Leukocyte Esterase Urine WBC (Auto) Urine RBC (Auto) 09/23/17 09/24/17 09/24/17 18:16 04:58 04:58 WBC Cancelled RBC Cancelled Hgb Cancelled Hct Cancelled MCV Cancelled MCH Cancelled MCHC Cancelled RDW Cancelled Plt Count Cancelled Seg Neutrophils % Cancelled Lymphocytes % Cancelled Monocytes % Cancelled Eosinophils % Cancelled Basophils % Cancelled Absolute Neutrophils Cancelled Absolute Lymphocytes Cancelled Absolute Monocytes Cancelled Absolute Eosinophils Cancelled Absolute Basophils Cancelled Sodium Potassium Chloride Carbon Dioxide Anion Gap BUN Creatinine Est GFR ( Amer) Est GFR (Non-Af Amer) Glucose Calcium Phosphorus Magnesium Total Bilirubin AST ALT Alkaline Phosphatase Ammonia Total Protein Albumin Triglycerides Cholesterol LDL Cholesterol Direct VLDL Cholesterol HDL Cholesterol Amylase Lipase TSH Free T4 Urine Color DARK YELLOW Urine Appearance TURBID Urine pH 5.0 Ur Specific [place] 1.027 Urine Protein NEGATIVE Urine Glucose (UA) NEGATIVE Urine Ketones NEGATIVE Urine Blood LARGE H Urine Nitrite NEGATIVE Ur Leukocyte Esterase NEGATIVE Urine WBC (Auto) 5 Urine RBC (Auto) 79 09/24/17 09/24/17 08:26 12:39 WBC 18.9 H RBC 3.43 L Hgb 11.3 L Hct 32.8 L MCV 96 MCH 32.8 MCHC 34.4 RDW 13.6 Plt Count 289 Seg Neutrophils % 55.6 Lymphocytes % 36.9 Monocytes % 4.9 Eosinophils % 2.3 Basophils % 0.3 Absolute Neutrophils 10.5 H Absolute Lymphocytes 7.0 H Absolute Monocytes 0.9 Absolute Eosinophils 0.4 Absolute Basophils 0.1 Sodium 139.4 Potassium 3.6 Chloride 105 Carbon Dioxide 25 Anion Gap 9 BUN 13 Creatinine 0.46 L Est GFR ( Amer) > 60 Est GFR (Non-Af Amer) > 60 Glucose 95 Calcium 9.2 Phosphorus Magnesium Total Bilirubin AST ALT Alkaline Phosphatase Ammonia Total Protein Albumin Triglycerides Cholesterol LDL Cholesterol Direct VLDL Cholesterol HDL Cholesterol Amylase Lipase TSH Free T4 Urine Color Urine Appearance Urine pH Ur Specific [place] Urine Protein Urine Glucose (UA) Urine Ketones Urine Blood Urine Nitrite Ur Leukocyte Esterase Urine WBC (Auto) Urine RBC (Auto) 09/23/17 09/23/17 09/23/17 15:59 15:59 22:35 Creatine Kinase 41 68 CK-MB (CK-2) 0.38 Troponin I < 0.012 09/23/17 09/24/17 09/24/17 22:35 04:58 04:58 Creatine Kinase CK-MB (CK-2) 0.56 Troponin I < 0.012 Impressions: Lower Extremity CT 09/23/17 02:54 IMPRESSION: 1. Mild inflammatory change in the subcutaneous soft tissues overlying the sacrum as well as the posterior proximal and mid right thigh without well-circumscribed fluid collection or definite open wound. These findings could be seen with cellulitis. No definite lytic osseous lesion. If there is continued concern for osteomyelitis contrast-enhanced MRI could provide additional characterization. 2. Diverticulosis without evidence of diverticulitis. This exam was performed according to our departmental dose-optimization program, which includes automated exposure control, adjustment of the mA and/or kV according to patient size and/or use of iterative reconstruction technique. Pelvis CT 09/23/17 02:55 IMPRESSION: 1. Mild inflammatory change in the subcutaneous soft tissues overlying the sacrum as well as the posterior proximal and mid right thigh without well-circumscribed fluid collection or definite open wound. These findings could be seen with cellulitis. No definite lytic osseous lesion. If there is continued concern for osteomyelitis contrast-enhanced MRI could provide additional characterization. 2. Diverticulosis without evidence of diverticulitis. This exam was performed according to our departmental dose-optimization program, which includes automated exposure control, adjustment of the mA and/or kV according to patient size and/or use of iterative reconstruction technique. Assessment & Plan - Diagnosis (1) Cellulitis of right lower extremity Is this a current diagnosis for this admission?: Yes Plan: Patient is admitted to the hospital for management (2) Sepsis due to cellulitis Is this a current diagnosis for this admission?: Yes (3) Chronic atrial fibrillation Is this a current diagnosis for this admission?: Yes (4) Dementia Qualifiers: Dementia type: Alzheimer's disease Alzheimer's disease onset: late-onset Dementia behavioral disturbance: with behavioral disturbance Qualified Code(s) : G30.1 - Alzheimer's disease with late onset; F02.81 - Dementia in other diseases classified elsewhere with behavioral disturbance; F02.81 - Dementia in other diseases classified elsewhere with behavioral disturbance; F02.81 - Dementia in other diseases classified elsewhere with behavioral disturbance
[2017-09-24] MEDS ORDERED: NYSTATIN TOPICAL POWDER 15 GM TP ONE (15:30)
[2017-09-24] MEDS: NORMAL SALINE 1000 ML 1,000 ML IV PRN (15:46)
[2017-09-24] MEDS ORDERED: NYSTATIN OINTMENT 15 GM TUBE TP ONE (16:00)
[2017-09-24] MEDS ORDERED: SILVER SULFADIAZINE 1% CREAM 400 GM TP ONE (16:00)
--- NOTE | 2017-09-24 16:55 | PDOC PROGRESS REPORT ---
Subjective Progress Note for:: 09/24/17 Subjective:: Patient was seen by the bedside, she supposedly have decubiti ulcer on the back/ sacrum, on this patient there is hemorrhagic, erythematous discoloration of the lower back Reason For Visit: CELLULITIS OF THE LOWER EXTREMITY SEPSIS FROM Physical Exam Vital Signs: Temp Pulse Resp BP Pulse Ox 97.7 F 64 18 135/69 H 99 09/24/17 12:42 09/24/17 12:42 09/24/17 12:42 09/24/17 12:42 09/24/17 12:42 Intake & Output 09/23/17 09/24/17 09/25/17 06:59 06:59 06:59 Intake Total 540 150 Output Total 250 100 Balance 290 50 Weight 65.453 kg General appearance: PRESENT: no acute distress Respiratory exam: PRESENT: clear to auscultation danitza Cardiovascular exam: PRESENT: +S1, +S2 GI/Abdominal exam: PRESENT: soft Neurological exam: PRESENT: alert Skin exam: PRESENT: rash - Hemorrhagic extensive erythema and excoriation of the back, other - Extensive hemorrhagic erythema ,excoriation of the sacrum Results Laboratory Results: 09/24/17 08:26 09/24/17 12:39 09/23/17 09/23/17 09/24/17 16:50 18:16 04:58 WBC Cancelled RBC Cancelled Hgb Cancelled Hct Cancelled MCV Cancelled MCH Cancelled MCHC Cancelled RDW Cancelled Plt Count Cancelled Seg Neutrophils % Cancelled Lymphocytes % Cancelled Monocytes % Cancelled Eosinophils % Cancelled Basophils % Cancelled Absolute Neutrophils Cancelled Absolute Lymphocytes Cancelled Absolute Monocytes Cancelled Absolute Eosinophils Cancelled Absolute Basophils Cancelled Sodium Potassium Chloride Carbon Dioxide Anion Gap BUN Creatinine Est GFR ( Amer) Est GFR (Non-Af Amer) Glucose Calcium Total Bilirubin AST ALT Alkaline Phosphatase Total Protein Albumin Triglycerides Cholesterol LDL Cholesterol Direct VLDL Cholesterol HDL Cholesterol TSH 0.53 Free T4 1.19 Urine Color DARK YELLOW Urine Appearance TURBID Urine pH 5.0 Ur Specific [place] 1.027 Urine Protein NEGATIVE Urine Glucose (UA) NEGATIVE Urine Ketones NEGATIVE Urine Blood LARGE H Urine Nitrite NEGATIVE Ur Leukocyte Esterase NEGATIVE Urine WBC (Auto) 5 Urine RBC (Auto) 79 09/24/17 09/24/17 09/24/17 04:58 08:26 12:39 WBC 18.9 H RBC 3.43 L Hgb 11.3 L Hct 32.8 L MCV 96 MCH 32.8 MCHC 34.4 RDW 13.6 Plt Count 289 Seg Neutrophils % 55.6 Lymphocytes % 36.9 Monocytes % 4.9 Eosinophils % 2.3 Basophils % 0.3 Absolute Neutrophils 10.5 H Absolute Lymphocytes 7.0 H Absolute Monocytes 0.9 Absolute Eosinophils 0.4 Absolute Basophils 0.1 Sodium 139.4 Potassium 3.6 Chloride 105 Carbon Dioxide 25 Anion Gap 9 BUN 13 Creatinine 0.46 L Est GFR ( Amer) > 60 Est GFR (Non-Af Amer) > 60 Glucose 95 Calcium 9.2 Total Bilirubin AST ALT Alkaline Phosphatase Total Protein Albumin Triglycerides Cholesterol LDL Cholesterol Direct VLDL Cholesterol HDL Cholesterol TSH Free T4 Urine Color Urine Appearance Urine pH Ur Specific [place] Urine Protein Urine Glucose (UA) Urine Ketones Urine Blood Urine Nitrite Ur Leukocyte Esterase Urine WBC (Auto) Urine RBC (Auto) 09/23/17 09/23/17 09/23/17 15:59 15:59 22:35 Creatine Kinase 41 68 CK-MB (CK-2) 0.38 Troponin I < 0.012 09/23/17 09/24/17 09/24/17 22:35 04:58 04:58 Creatine Kinase CK-MB (CK-2) 0.56 Troponin I < 0.012 Impressions: Lower Extremity CT 09/23/17 02:54 IMPRESSION: 1. Mild inflammatory change in the subcutaneous soft tissues overlying the sacrum as well as the posterior proximal and mid right thigh without well-circumscribed fluid collection or definite open wound. These findings could be seen with cellulitis. No definite lytic osseous lesion. If there is continued concern for osteomyelitis contrast-enhanced MRI could provide additional characterization. 2. Diverticulosis without evidence of diverticulitis. This exam was performed according to our departmental dose-optimization program, which includes automated exposure control, adjustment of the mA and/or kV according to patient size and/or use of iterative reconstruction technique. Pelvis CT 09/23/17 02:55 IMPRESSION: 1. Mild inflammatory change in the subcutaneous soft tissues overlying the sacrum as well as the posterior proximal and mid right thigh without well-circumscribed fluid collection or definite open wound. These findings could be seen with cellulitis. No definite lytic osseous lesion. If there is continued concern for osteomyelitis contrast-enhanced MRI could provide additional characterization. 2. Diverticulosis without evidence of diverticulitis. This exam was performed according to our departmental dose-optimization program, which includes automated exposure control, adjustment of the mA and/or kV according to patient size and/or use of iterative reconstruction technique. Assessment & Plan - Diagnosis (1) Cellulitis of right lower extremity Is this a current diagnosis for this admission?: Yes (2) Sepsis due to cellulitis Is this a current diagnosis for this admission?: Yes (3) Chronic atrial fibrillation Is this a current diagnosis for this admission?: Yes (4) Dementia Qualifiers: Dementia type: Alzheimer's disease Alzheimer's disease onset: late-onset Dementia behavioral disturbance: with behavioral disturbance Qualified Code(s) : G30.1 - Alzheimer's disease with late onset; F02.81 - Dementia in other diseases classified elsewhere with behavioral disturbance; F02.81 - Dementia in other diseases classified elsewhere with behavioral disturbance; F02.81 - Dementia in other diseases classified elsewhere with behavioral disturbance (5) Sacral decubitus ulcer, stage III Is this a current diagnosis for this admission?: Yes Plan: The hemorrhagic component could be from anticoagulant, Eliquis that she takes on a regular basis for chronic atrial fibrillation
[2017-09-24] MEDS ORDERED: PIPERACILLIN/TAZOBACTAM 3.375 GM VIAL IV ONE (17:48)
--- NOTE | 2017-09-24 21:53 | Operative Report ---
Operative Report DATE OF SURGERY: 09/24/17 PREOPERATIVE DIAGNOSIS: 1. Cellulitis POSTOPERATIVE DIAGNOSIS: Same OPERATION: 1. Focused ultrasound of the neck. 2.Right subclavian triple-lumen central venous access catheter insertion SURGEON: TWAANDA SKY ANESTHESIA: Local TISSUE REMOVED OR ALTERED: None COMPLICATIONS: None ESTIMATED BLOOD LOSS: Scant INTRAOPERATIVE FINDINGS: Below PROCEDURE: Informed consent was obtained. The patient was placed in Trendelenburg the right subclavian area was exposed , prepped and draped in a sterile fashion. Surgical plan and surgical timeout discussed. We scanned the neck unfortunately the patient had a right rotation preference. It was very difficult to access the right internal jugular vein which was patent. On the left side of the left internal jugular vein was attenuated or absent. Therefore we aborted the internal jugular approach. The right subclavian area was anesthetized with 1% lidocaine without epinephrine. An 18-gauge needle and wire were threaded into the right subclavian vein. The tract was dilated up, the dilator removed, and the triple- lumen central venous access catheter was threaded into the right subclavian vein uneventfully to the hub. There was excellent aspiration and flush of saline through all 3 lumens. The catheter was affixed to the skin with a Biopatch and 2-0 silk suture; sterile dressing applied. The patient tolerated the procedure well. There were no complications. Portable upright chest x-ray pending at time of dictation.
[2017-09-24] MEDS: MONTELUKAST SODIUM 10 MG TABLET PO SCH (22:15)
[2017-09-24] MEDS: MIRTAZAPINE 15 MG TABLET PO SCH (22:15)
[2017-09-24] MEDS: DONEPEZIL HCL 5 MG TABLET PO SCH (22:16)
[2017-09-24] MEDS: PIPERACILLIN SODIUM/TAZOBACTAM 3.375 GM in NORMAL SALINE 100 ML IV SCH ×2 (22:31→23:50)
--- NOTE | 2017-09-24 22:58 | RADIOLOGY REPORT (SQ) ---
EXAM DESCRIPTION: CHEST SINGLE VIEW COMPLETED DATE/TIME: 09/24/2017 10:47 pm REASON FOR STUDY: new central line insertion, right subclavian posit COMPARISON: None. EXAM PARAMETERS: NUMBER OF VIEWS: One view. TECHNIQUE: Single frontal radiographic view of the chest acquired. RADIATION DOSE: NA LIMITATIONS: None. FINDINGS: LUNGS AND PLEURA: No opacities, masses or pneumothorax. No pleural effusion. MEDIASTINUM AND HILAR STRUCTURES: No masses. Contour normal. HEART AND VASCULAR STRUCTURES: Heart normal in size. Normal vasculature. BONES: No acute findings. HARDWARE: Central line with the tip at the level of the right atrium. Clips in the soft tissues of t he neck. OTHER: No other significant finding. IMPRESSION: NO PNEUMOTHORAX FOLLOWING CENTRAL LINE PLACEMENT. TECHNICAL DOCUMENTATION: JOB ID: [id number] [employer]- All Rights Reserved
[2017-09-25] MEDS: ALPRAZOLAM 0.5 MG TABLET PO PRN ×2 (04:35→19:30)
[2017-09-25] MEDS: ACETAMINOPHEN 325 MG TABLET PO PRN (04:35)
[2017-09-25] MEDS: TRAMADOL HCL 50 MG TABLET PO PRN ×3 (04:35→19:30)
[2017-09-25] MEDS: CLINDAMYCIN 600 MG/D5W RTU 600 MG/50 ML RTUPB IV SCH ×3 (05:12→21:46)
[2017-09-25] MEDS: PIPERACILLIN SODIUM/TAZOBACTAM 3.375 GM in NORMAL SALINE 100 ML IV SCH ×4 (05:14→23:44)
[2017-09-25] MEDS: NORMAL SALINE INJ/PF 0.9% 10 ML SDV IV PRN (05:16)
[2017-09-25 07:39] LABS: ABSOLUTE EOSINOPHILS # (AUTO) 0.5 10^3/uL (0.0-0.6); ABSOLUTE MONOCYTES (AUTO) 0.7 10^3/uL (0.1-1.4); ABSOLUTE NEUT (AUTO) 6.2 10^3/uL (1.7-8.2); BASOPHILS % (AUTO) 0.4 % (0-2); EOSINOPHILS % (AUTO) 4.8 % (0-6); HEMATOCRIT 27.5 % (36.0-47.0); HEMOGLOBIN 9.3 g/dL (12.0-15.5); LYMPHOCYTES % (AUTO) 34.6 % (13-45); MEAN CORPUSCULAR HEMOGLOBIN 32.6 pg (27.0-33.4); MEAN CORPUSCULAR HGB CONC 33.9 g/dL (32.0-36.0); MEAN CORPUSCULAR VOLUME 96 fl (80-97); PLATELET COUNT 271 10^3/uL (150-450); RED BLOOD COUNT 2.85 10^6/uL (3.72-5.28); RED CELL DISTRIBUTION WIDTH 13.5 % (11.5-14.0); SEGMENTED NEUTROPHILS % (AUTO) 54.2 % (42-78); TOTAL CELLS COUNTED % (AUTO) 100 %; WHITE BLOOD COUNT 11.5 10^3/uL (4.0-10.5)
[2017-09-25 07:58] LABS: ALANINE AMINOTRANSFERASE 25 U/L (9-52); ALBUMIN 2.5 g/dL (3.5-5.0); ALKALINE PHOSPHATASE 59 U/L (38-126); ANION GAP 11 (5-19); ASPARTATE AMINO TRANSFERASE 9 U/L (14-36); BILIRUBIN,DIRECT 0.1 mg/dL (0.0-0.4); BILIRUBIN,TOTAL 0.2 mg/dL (0.2-1.3); BLOOD UREA NITROGEN 12 mg/dL (7-20); CALCIUM 8.8 mg/dL (8.4-10.2); CARBON DIOXIDE 24 mmol/L (22-30); CHLORIDE 108 mmol/L (98-107); GLUCOSE 101 mg/dL (75-110); POTASSIUM 3.1 mmol/L (3.6-5.0); SODIUM 142.8 mmol/L (137-145); TOTAL PROTEIN 5.1 g/dL (6.3-8.2)
[2017-09-25] MEDS: CETIRIZINE 10 MG TABLET PO SCH (10:48)
[2017-09-25] MEDS: METOPROLOL SUCCINATE 50 MG TAB.SR.24H PO SCH (10:49)
[2017-09-25] MEDS: NYSTATIN TOPICAL POWDER 15 GM TP SCH (10:49)
[2017-09-25] MEDS: APIXABAN 2.5 MG TABLET PO SCH ×2 (10:49→17:37)
[2017-09-25] MEDS: MEGESTROL ACETATE 20 MG TABLET PO SCH ×2 (10:49→21:48)
[2017-09-25] MEDS: SILVER SULFADIAZINE 1% CREAM 400 GM TP SCH (10:50)
[2017-09-25] MEDS: NORMAL SALINE 1000 ML 1,000 ML IV PRN ×2 (10:57→21:49)
[2017-09-25] MEDS: MIRTAZAPINE 15 MG TABLET PO SCH (21:48)
[2017-09-25] MEDS: DONEPEZIL HCL 5 MG TABLET PO SCH (21:48)
[2017-09-25] MEDS: MONTELUKAST SODIUM 10 MG TABLET PO SCH (21:55)
[2017-09-26] MEDS: CLINDAMYCIN 600 MG/D5W RTU 600 MG/50 ML RTUPB IV SCH ×3 (05:07→23:03)
[2017-09-26] MEDS: TRAMADOL HCL 50 MG TABLET PO PRN ×2 (05:08→11:43)
[2017-09-26 05:18] LABS: ABSOLUTE BASOPHILS # (AUTO) 0.1 10^3/uL (0.0-0.2); ABSOLUTE EOSINOPHILS # (AUTO) 0.5 10^3/uL (0.0-0.6); ABSOLUTE LYMPHOCYTES (AUTO) 4.4 10^3/uL (0.5-4.7); ABSOLUTE MONOCYTES (AUTO) 0.6 10^3/uL (0.1-1.4); ABSOLUTE NEUT (AUTO) 4.3 10^3/uL (1.7-8.2); BASOPHILS % (AUTO) 0.6 % (0-2); EOSINOPHILS % (AUTO) 4.9 % (0-6); HEMATOCRIT 28.9 % (36.0-47.0); HEMOGLOBIN 9.8 g/dL (12.0-15.5); LYMPHOCYTES % (AUTO) 44.2 % (13-45); MEAN CORPUSCULAR HEMOGLOBIN 32.9 pg (27.0-33.4); MEAN CORPUSCULAR HGB CONC 34.1 g/dL (32.0-36.0); MEAN CORPUSCULAR VOLUME 97 fl (80-97); MONOCYTES % (AUTO) 6.2 % (3-13); PLATELET COUNT 287 10^3/uL (150-450); RED BLOOD COUNT 2.99 10^6/uL (3.72-5.28); RED CELL DISTRIBUTION WIDTH 13.6 % (11.5-14.0); SEGMENTED NEUTROPHILS % (AUTO) 44.1 % (42-78); TOTAL CELLS COUNTED % (AUTO) 100 %; WHITE BLOOD COUNT 9.8 10^3/uL (4.0-10.5)
[2017-09-26 05:33] LABS: ALANINE AMINOTRANSFERASE 22 U/L (9-52); ALBUMIN 2.7 g/dL (3.5-5.0); ALKALINE PHOSPHATASE 58 U/L (38-126); ANION GAP 11 (5-19); ASPARTATE AMINO TRANSFERASE 9 U/L (14-36); BILIRUBIN,DIRECT 0.2 mg/dL (0.0-0.4); BILIRUBIN,TOTAL 0.2 mg/dL (0.2-1.3); BLOOD UREA NITROGEN 7 mg/dL (7-20); CARBON DIOXIDE 24 mmol/L (22-30); CHLORIDE 111 mmol/L (98-107); GLUCOSE 97 mg/dL (75-110); POTASSIUM 3.6 mmol/L (3.6-5.0); SODIUM 146.4 mmol/L (137-145); TOTAL PROTEIN 5.4 g/dL (6.3-8.2)
[2017-09-26] MEDS: PIPERACILLIN SODIUM/TAZOBACTAM 3.375 GM in NORMAL SALINE 100 ML IV SCH ×4 (06:37→23:55)
[2017-09-26] MEDS: MEGESTROL ACETATE 20 MG TABLET PO SCH ×2 (10:04→23:02)
[2017-09-26] MEDS: APIXABAN 2.5 MG TABLET PO SCH ×2 (10:04→17:36)
[2017-09-26] MEDS: ALPRAZOLAM 0.5 MG TABLET PO PRN (10:04)
[2017-09-26] MEDS: CETIRIZINE 10 MG TABLET PO SCH (10:04)
[2017-09-26] MEDS: METOPROLOL SUCCINATE 50 MG TAB.SR.24H PO SCH (10:04)
[2017-09-26] MEDS: NORMAL SALINE 1000 ML 1,000 ML IV PRN ×2 (10:07→20:53)
[2017-09-26] MEDS: SILVER SULFADIAZINE 1% CREAM 400 GM TP SCH (11:26)
[2017-09-26] MEDS: NYSTATIN TOPICAL POWDER 15 GM TP SCH (11:27)
[2017-09-26] MEDS ORDERED: DOCUSATE SODIUM 100 MG CAPSULE PO ONE (19:00)
--- NOTE | 2017-09-26 22:04 | PDOC PROGRESS REPORT ---
Subjective Progress Note for:: 09/25/17 Subjective:: Patient seen by the bedside she continues to improve Reason For Visit: CELLULITIS OF THE LOWER EXTREMITY, SEPSIS FROM Physical Exam Vital Signs: Temp Pulse Resp BP Pulse Ox 97.8 F 64 20 122/61 96 09/26/17 16:11 09/26/17 16:11 09/26/17 16:11 09/26/17 16:11 09/26/17 16:11 Intake & Output 09/25/17 09/26/17 09/27/17 06:59 06:59 06:59 Intake Total 2467 3778 1830 Output Total 800 1500 600 Balance 1667 2278 1230 Weight 67.6 kg 88.5 kg General appearance: PRESENT: no acute distress Eye exam: PRESENT: PERRLA Respiratory exam: PRESENT: clear to auscultation danitza Cardiovascular exam: PRESENT: +S1, +S2 GI/Abdominal exam: PRESENT: soft Extremities exam: PRESENT: other - Erythema of the right leg Neurological exam: PRESENT: alert Results Laboratory Results: 09/26/17 04:27 09/26/17 04:27 09/26/17 09/26/17 04:27 04:27 WBC 9.8 RBC 2.99 L Hgb 9.8 L Hct 28.9 L MCV 97 MCH 32.9 MCHC 34.1 RDW 13.6 Plt Count 287 Seg Neutrophils % 44.1 Lymphocytes % 44.2 Monocytes % 6.2 Eosinophils % 4.9 Basophils % 0.6 Absolute Neutrophils 4.3 Absolute Lymphocytes 4.4 Absolute Monocytes 0.6 Absolute Eosinophils 0.5 Absolute Basophils 0.1 Sodium 146.4 H Potassium 3.6 Chloride 111 H Carbon Dioxide 24 Anion Gap 11 BUN 7 Creatinine 0.59 Est GFR ( Amer) > 60 Est GFR (Non-Af Amer) > 60 Glucose 97 Calcium 9.0 Total Bilirubin 0.2 AST 9 L ALT 22 Alkaline Phosphatase 58 Total Protein 5.4 L Albumin 2.7 L 09/23/17 09/23/17 09/23/17 15:59 15:59 22:35 Creatine Kinase 41 68 CK-MB (CK-2) 0.38 Troponin I < 0.012 09/23/17 09/24/17 09/24/17 22:35 04:58 04:58 Creatine Kinase CK-MB (CK-2) 0.56 Troponin I < 0.012 Impressions: Lower Extremity CT 09/23/17 02:54 IMPRESSION: 1. Mild inflammatory change in the subcutaneous soft tissues overlying the sacrum as well as the posterior proximal and mid right thigh without well-circumscribed fluid collection or definite open wound. These findings could be seen with cellulitis. No definite lytic osseous lesion. If there is continued concern for osteomyelitis contrast-enhanced MRI could provide additional characterization. 2. Diverticulosis without evidence of diverticulitis. This exam was performed according to our departmental dose-optimization program, which includes automated exposure control, adjustment of the mA and/or kV according to patient size and/or use of iterative reconstruction technique. Pelvis CT 09/23/17 02:55 IMPRESSION: 1. Mild inflammatory change in the subcutaneous soft tissues overlying the sacrum as well as the posterior proximal and mid right thigh without well-circumscribed fluid collection or definite open wound. These findings could be seen with cellulitis. No definite lytic osseous lesion. If there is continued concern for osteomyelitis contrast-enhanced MRI could provide additional characterization. 2. Diverticulosis without evidence of diverticulitis. This exam was performed according to our departmental dose-optimization program, which includes automated exposure control, adjustment of the mA and/or kV according to patient size and/or use of iterative reconstruction technique. Chest X-Ray 09/24/17 21:53 IMPRESSION: NO PNEUMOTHORAX FOLLOWING CENTRAL LINE PLACEMENT. Assessment & Plan - Diagnosis (1) Cellulitis of right lower extremity Is this a current diagnosis for this admission?: Yes (2) Sepsis due to cellulitis Is this a current diagnosis for this admission?: Yes (3) Chronic atrial fibrillation Is this a current diagnosis for this admission?: Yes (4) Dementia Qualifiers: Dementia type: Alzheimer's disease Alzheimer's disease onset: late-onset Dementia behavioral disturbance: with behavioral disturbance Qualified Code(s) : G30.1 - Alzheimer's disease with late onset; F02.81 - Dementia in other diseases classified elsewhere with behavioral disturbance; F02.81 - Dementia in other diseases classified elsewhere with behavioral disturbance; F02.81 - Dementia in other diseases classified elsewhere with behavioral disturbance (5) Sacral decubitus ulcer, stage III Is this a current diagnosis for this admission?: Yes
[2017-09-26] MEDS: DONEPEZIL HCL 5 MG TABLET PO SCH (23:02)
[2017-09-26] MEDS: MIRTAZAPINE 15 MG TABLET PO SCH (23:03)
[2017-09-26] MEDS: MONTELUKAST SODIUM 10 MG TABLET PO SCH (23:04)
[2017-09-27] MEDS: PIPERACILLIN SODIUM/TAZOBACTAM 3.375 GM in NORMAL SALINE 100 ML IV SCH ×4 (07:42→23:05)
[2017-09-27] MEDS: CLINDAMYCIN 600 MG/D5W RTU 600 MG/50 ML RTUPB IV SCH ×3 (09:08→21:48)
[2017-09-27] MEDS: MEGESTROL ACETATE 20 MG TABLET PO SCH ×2 (10:24→22:02)
[2017-09-27] MEDS: CETIRIZINE 10 MG TABLET PO SCH (10:24)
[2017-09-27] MEDS: DOCUSATE SODIUM 100 MG CAPSULE PO SCH ×2 (10:24→17:19)
[2017-09-27] MEDS: APIXABAN 2.5 MG TABLET PO SCH ×2 (10:25→17:22)
[2017-09-27] MEDS: METOPROLOL SUCCINATE 50 MG TAB.SR.24H PO SCH (10:25)
[2017-09-27] MEDS: SILVER SULFADIAZINE 1% CREAM 400 GM TP SCH (10:26)
[2017-09-27] MEDS: NYSTATIN TOPICAL POWDER 15 GM TP SCH (10:26)
[2017-09-27] MEDS: ALPRAZOLAM 0.5 MG TABLET PO PRN (11:20)
[2017-09-27] MEDS: TRAMADOL HCL 50 MG TABLET PO PRN ×2 (14:07→21:48)
[2017-09-27] MEDS: IPRATROPIUM/ALBUTEROL 0.5-2.5 MG/3 ML AMPUL NEB PRN (14:50)
--- NOTE | 2017-09-27 16:09 | PDOC PROGRESS REPORT ---
Subjective Progress Note for:: 09/27/17 Subjective:: Patient was seen by the bedside, she is showing signs of improvement, the redness of the lower extremities improve, she is seems to be getting too much fluid, will discontinue maintenance IV fluid Reason For Visit: CELLULITIS OF THE LOWER EXTREMITY, SEPSIS FROM Physical Exam Vital Signs: Temp Pulse Resp BP Pulse Ox 99.2 F 58 L 18 143/68 H 100 09/27/17 12:27 09/27/17 14:00 09/27/17 12:27 09/27/17 12:27 09/27/17 12:27 Intake & Output 09/26/17 09/27/17 09/28/17 06:59 06:59 06:59 Intake Total 3778 3702 177 Output Total 1500 1700 400 Balance 2277 Weight 88.5 kg General appearance: PRESENT: no acute distress Eye exam: PRESENT: PERRLA Respiratory exam: PRESENT: rhonchi Cardiovascular exam: PRESENT: +S1, +S2 GI/Abdominal exam: PRESENT: soft Extremities exam: PRESENT: other - No redness Neurological exam: PRESENT: alert Results Laboratory Results: 09/26/17 04:27 09/26/17 04:27 09/23/17 09/23/17 09/23/17 15:59 15:59 22:35 Creatine Kinase 41 68 CK-MB (CK-2) 0.38 Troponin I < 0.012 09/23/17 09/24/17 09/24/17 22:35 04:58 04:58 Creatine Kinase CK-MB (CK-2) 0.56 Troponin I < 0.012 Impressions: Lower Extremity CT 09/23/17 02:54 IMPRESSION: 1. Mild inflammatory change in the subcutaneous soft tissues overlying the sacrum as well as the posterior proximal and mid right thigh without well-circumscribed fluid collection or definite open wound. These findings could be seen with cellulitis. No definite lytic osseous lesion. If there is continued concern for osteomyelitis contrast-enhanced MRI could provide additional characterization. 2. Diverticulosis without evidence of diverticulitis. This exam was performed according to our departmental dose-optimization program, which includes automated exposure control, adjustment of the mA and/or kV according to patient size and/or use of iterative reconstruction technique. Pelvis CT 09/23/17 02:55 IMPRESSION: 1. Mild inflammatory change in the subcutaneous soft tissues overlying the sacrum as well as the posterior proximal and mid right thigh without well-circumscribed fluid collection or definite open wound. These findings could be seen with cellulitis. No definite lytic osseous lesion. If there is continued concern for osteomyelitis contrast-enhanced MRI could provide additional characterization. 2. Diverticulosis without evidence of diverticulitis. This exam was performed according to our departmental dose-optimization program, which includes automated exposure control, adjustment of the mA and/or kV according to patient size and/or use of iterative reconstruction technique. Chest X-Ray 09/24/17 21:53 IMPRESSION: NO PNEUMOTHORAX FOLLOWING CENTRAL LINE PLACEMENT. Assessment & Plan - Diagnosis (1) Cellulitis of right lower extremity Is this a current diagnosis for this admission?: Yes (2) Sepsis due to cellulitis Is this a current diagnosis for this admission?: Yes (3) Chronic atrial fibrillation Is this a current diagnosis for this admission?: Yes (4) Dementia Qualifiers: Dementia type: Alzheimer's disease Alzheimer's disease onset: late-onset Dementia behavioral disturbance: with behavioral disturbance Qualified Code(s) : G30.1 - Alzheimer's disease with late onset; F02.81 - Dementia in other diseases classified elsewhere with behavioral disturbance; F02.81 - Dementia in other diseases classified elsewhere with behavioral disturbance; F02.81 - Dementia in other diseases classified elsewhere with behavioral disturbance (5) Sacral decubitus ulcer, stage III Is this a current diagnosis for this admission?: Yes - Plan Summary Plan Summary: Discontinue IV fluid, continue IV antibiotic
[2017-09-27 16:33] LABS: ABSOLUTE BASOPHILS # (AUTO) 0.1 10^3/uL (0.0-0.2); ABSOLUTE EOSINOPHILS # (AUTO) 0.7 10^3/uL (0.0-0.6); ABSOLUTE LYMPHOCYTES (AUTO) 6.1 10^3/uL (0.5-4.7); ABSOLUTE MONOCYTES (AUTO) 0.7 10^3/uL (0.1-1.4); ABSOLUTE NEUT (AUTO) 5.1 10^3/uL (1.7-8.2); BASOPHILS % (AUTO) 0.6 % (0-2); EOSINOPHILS % (AUTO) 5.3 % (0-6); HEMATOCRIT 27.3 % (36.0-47.0); HEMOGLOBIN 9.2 g/dL (12.0-15.5); LYMPHOCYTES % (AUTO) 48.4 % (13-45); MEAN CORPUSCULAR HEMOGLOBIN 32.5 pg (27.0-33.4); MEAN CORPUSCULAR HGB CONC 33.6 g/dL (32.0-36.0); MEAN CORPUSCULAR VOLUME 97 fl (80-97); MONOCYTES % (AUTO) 5.3 % (3-13); PLATELET COUNT 282 10^3/uL (150-450); RED BLOOD COUNT 2.83 10^6/uL (3.72-5.28); RED CELL DISTRIBUTION WIDTH 13.8 % (11.5-14.0); SEGMENTED NEUTROPHILS % (AUTO) 40.4 % (42-78); TOTAL CELLS COUNTED % (AUTO) 100 %; WHITE BLOOD COUNT 12.5 10^3/uL (4.0-10.5)
[2017-09-27 16:52] LABS: ALANINE AMINOTRANSFERASE 26 U/L (9-52); ALBUMIN 2.6 g/dL (3.5-5.0); ALKALINE PHOSPHATASE 66 U/L (38-126); ANION GAP 10 (5-19); ASPARTATE AMINO TRANSFERASE 13 U/L (14-36); BLOOD UREA NITROGEN 5 mg/dL (7-20); CALCIUM 9.1 mg/dL (8.4-10.2); CARBON DIOXIDE 24 mmol/L (22-30); CHLORIDE 110 mmol/L (98-107); GLUCOSE 102 mg/dL (75-110); TOTAL PROTEIN 5.4 g/dL (6.3-8.2)
[2017-09-27 16:53] LABS: BILIRUBIN,TOTAL < 0.1 mg/dL (0.2-1.3)
[2017-09-27] MEDS: POTASSIUM CHLORIDE 10 MEQ TABLET.SA PO SCH (17:23)
[2017-09-27] MEDS: MIRTAZAPINE 15 MG TABLET PO SCH (21:48)
[2017-09-27] MEDS: DONEPEZIL HCL 5 MG TABLET PO SCH (21:49)
[2017-09-27] MEDS: MONTELUKAST SODIUM 10 MG TABLET PO SCH (22:02)
[2017-09-28] MEDS: TRAMADOL HCL 50 MG TABLET PO PRN ×3 (04:07→21:08)
[2017-09-28] MEDS: CLINDAMYCIN 600 MG/D5W RTU 600 MG/50 ML RTUPB IV SCH ×3 (05:17→21:08)
[2017-09-28] MEDS: PIPERACILLIN SODIUM/TAZOBACTAM 3.375 GM in NORMAL SALINE 100 ML IV SCH ×4 (06:45→23:03)
[2017-09-28] MEDS: IPRATROPIUM/ALBUTEROL 0.5-2.5 MG/3 ML AMPUL NEB PRN (09:48)
[2017-09-28] MEDS: APIXABAN 2.5 MG TABLET PO SCH ×2 (10:53→17:43)
[2017-09-28] MEDS: MEGESTROL ACETATE 20 MG TABLET PO SCH ×2 (10:53→21:08)
[2017-09-28] MEDS: METOPROLOL SUCCINATE 50 MG TAB.SR.24H PO SCH (10:54)
[2017-09-28] MEDS: NYSTATIN TOPICAL POWDER 15 GM TP SCH (10:54)
[2017-09-28] MEDS: CETIRIZINE 10 MG TABLET PO SCH (10:54)
[2017-09-28] MEDS: SILVER SULFADIAZINE 1% CREAM 400 GM TP SCH (10:54)
[2017-09-28] MEDS: DOCUSATE SODIUM 100 MG CAPSULE PO SCH ×2 (10:55→17:41)
[2017-09-28] MEDS: ALPRAZOLAM 0.5 MG TABLET PO PRN (12:16)
[2017-09-28] MEDS ORDERED: FUROSEMIDE INJ/PF 40 MG/4 ML SDV IV ONE (14:00)
[2017-09-28] MEDS: POTASSIUM CHLORIDE 10 MEQ TABLET.SA PO SCH (18:29)
--- NOTE | 2017-09-28 20:40 | PDOC PROGRESS REPORT ---
Subjective Progress Note for:: 09/28/17 Subjective:: Patient is improving, she had episode of wheezing probably due to volume Reason For Visit: CELLULITIS OF THE LOWER EXTREMITY, SEPSIS FROM Physical Exam Vital Signs: Temp Pulse Resp BP Pulse Ox 98.8 F 71 24 H 132/65 H 96 09/28/17 15:41 09/28/17 19:00 09/28/17 15:41 09/28/17 15:41 09/28/17 16:14 Intake & Output 09/27/17 09/28/17 09/29/17 06:59 06:59 06:59 Intake Total 3702 1650 950 Output Total 1700 1400 2200 Balance 2002 250 -1250 Weight 91 kg General appearance: PRESENT: no acute distress Head exam: PRESENT: atraumatic, normocephalic Eye exam: PRESENT: conjunctiva pink, EOMI, PERRLA Ear exam: PRESENT: normal external ear exam Mouth exam: PRESENT: moist, tongue midline Neck exam: PRESENT: full ROM Respiratory exam: PRESENT: clear to auscultation danitza Cardiovascular exam: PRESENT: RRR, +S1, +S2 Pulses: PRESENT: normal dorsalis pedis pul, +2 pedal pulses bilateral Vascular exam: PRESENT: normal capillary refill GI/Abdominal exam: PRESENT: normal bowel sounds, soft Rectal exam: PRESENT: deferred Neurological exam: PRESENT: alert Skin exam: PRESENT: dry, intact, warm. ABSENT: cyanosis, rash Results Laboratory Results: 09/27/17 16:17 09/27/17 16:17 09/23/17 06:30 Blood Blood Culture - Final NO GROWTH IN 5 DAYS 09/23/17 09/23/17 09/23/17 15:59 15:59 22:35 Creatine Kinase 41 68 CK-MB (CK-2) 0.38 Troponin I < 0.012 09/23/17 09/24/17 09/24/17 22:35 04:58 04:58 Creatine Kinase CK-MB (CK-2) 0.56 Troponin I < 0.012 Impressions: Lower Extremity CT 09/23/17 02:54 IMPRESSION: 1. Mild inflammatory change in the subcutaneous soft tissues overlying the sacrum as well as the posterior proximal and mid right thigh without well-circumscribed fluid collection or definite open wound. These findings could be seen with cellulitis. No definite lytic osseous lesion. If there is continued concern for osteomyelitis contrast-enhanced MRI could provide additional characterization. 2. Diverticulosis without evidence of diverticulitis. This exam was performed according to our departmental dose-optimization program, which includes automated exposure control, adjustment of the mA and/or kV according to patient size and/or use of iterative reconstruction technique. Pelvis CT 09/23/17 02:55 IMPRESSION: 1. Mild inflammatory change in the subcutaneous soft tissues overlying the sacrum as well as the posterior proximal and mid right thigh without well-circumscribed fluid collection or definite open wound. These findings could be seen with cellulitis. No definite lytic osseous lesion. If there is continued concern for osteomyelitis contrast-enhanced MRI could provide additional characterization. 2. Diverticulosis without evidence of diverticulitis. This exam was performed according to our departmental dose-optimization program, which includes automated exposure control, adjustment of the mA and/or kV according to patient size and/or use of iterative reconstruction technique. Chest X-Ray 09/24/17 21:53 IMPRESSION: NO PNEUMOTHORAX FOLLOWING CENTRAL LINE PLACEMENT. Assessment & Plan - Diagnosis (1) Cellulitis of right lower extremity Is this a current diagnosis for this admission?: Yes (2) Sepsis due to cellulitis Is this a current diagnosis for this admission?: Yes (3) Chronic atrial fibrillation Is this a current diagnosis for this admission?: Yes (4) Dementia Qualifiers: Dementia type: Alzheimer's disease Alzheimer's disease onset: late-onset Dementia behavioral disturbance: with behavioral disturbance Qualified Code(s) : G30.1 - Alzheimer's disease with late onset; F02.81 - Dementia in other diseases classified elsewhere with behavioral disturbance; F02.81 - Dementia in other diseases classified elsewhere with behavioral disturbance; F02.81 - Dementia in other diseases classified elsewhere with behavioral disturbance Is this a current diagnosis for this admission?: Yes (5) Sacral decubitus ulcer, stage III Is this a current diagnosis for this admission?: Yes - Plan Summary Plan Summary: Continue treatment
[2017-09-28] MEDS: MIRTAZAPINE 15 MG TABLET PO SCH (21:08)
[2017-09-28] MEDS: MONTELUKAST SODIUM 10 MG TABLET PO SCH (21:08)
[2017-09-28] MEDS: DONEPEZIL HCL 5 MG TABLET PO SCH (21:08)
[2017-09-29] MEDS: TRAMADOL HCL 50 MG TABLET PO PRN ×2 (04:15→11:56)
[2017-09-29] MEDS: CLINDAMYCIN 600 MG/D5W RTU 600 MG/50 ML RTUPB IV SCH ×3 (05:09→21:29)
[2017-09-29] MEDS: PIPERACILLIN SODIUM/TAZOBACTAM 3.375 GM in NORMAL SALINE 100 ML IV SCH ×4 (06:14→23:47)
[2017-09-29] MEDS: DOCUSATE SODIUM 100 MG CAPSULE PO SCH ×2 (09:21→18:17)
[2017-09-29] MEDS: CETIRIZINE 10 MG TABLET PO SCH (09:22)
[2017-09-29] MEDS: METOPROLOL SUCCINATE 50 MG TAB.SR.24H PO SCH (09:22)
[2017-09-29] MEDS: APIXABAN 2.5 MG TABLET PO SCH ×2 (09:22→18:22)
[2017-09-29] MEDS: MEGESTROL ACETATE 20 MG TABLET PO SCH ×2 (09:23→21:30)
[2017-09-29] MEDS: SILVER SULFADIAZINE 1% CREAM 400 GM TP SCH (09:24)
[2017-09-29] MEDS: NYSTATIN TOPICAL POWDER 15 GM TP SCH (09:24)
[2017-09-29] MEDS: ALPRAZOLAM 0.5 MG TABLET PO PRN ×2 (09:24→22:16)
[2017-09-29] MEDS: IPRATROPIUM/ALBUTEROL 0.5-2.5 MG/3 ML AMPUL NEB PRN (12:29)
[2017-09-29] MEDS: POTASSIUM CHLORIDE 10 MEQ TABLET.SA PO SCH (18:22)
[2017-09-29 19:05] LABS: ABSOLUTE BASOPHILS # (AUTO) 0.1 10^3/uL (0.0-0.2); ABSOLUTE EOSINOPHILS # (AUTO) 0.7 10^3/uL (0.0-0.6); ABSOLUTE MONOCYTES (AUTO) 0.8 10^3/uL (0.1-1.4); ABSOLUTE NEUT (AUTO) 5.7 10^3/uL (1.7-8.2); BASOPHILS % (AUTO) 0.5 % (0-2); EOSINOPHILS % (AUTO) 5.6 % (0-6); HEMATOCRIT 27.9 % (36.0-47.0); HEMOGLOBIN 9.5 g/dL (12.0-15.5); LYMPHOCYTES % (AUTO) 40.6 % (13-45); MEAN CORPUSCULAR HEMOGLOBIN 32.7 pg (27.0-33.4); MEAN CORPUSCULAR HGB CONC 34.2 g/dL (32.0-36.0); MEAN CORPUSCULAR VOLUME 96 fl (80-97); MONOCYTES % (AUTO) 6.4 % (3-13); PLATELET COUNT 342 10^3/uL (150-450); RED BLOOD COUNT 2.92 10^6/uL (3.72-5.28); SEGMENTED NEUTROPHILS % (AUTO) 46.9 % (42-78); TOTAL CELLS COUNTED % (AUTO) 100 %; WHITE BLOOD COUNT 12.2 10^3/uL (4.0-10.5)
--- NOTE | 2017-09-29 19:10 | RADIOLOGY REPORT (SQ) ---
EXAM DESCRIPTION: CHEST SINGLE VIEW COMPLETED DATE/TIME: 09/29/2017 6:59 pm REASON FOR STUDY: wheezing COMPARISON: 09/24/2017 EXAM PARAMETERS: NUMBER OF VIEWS: One view. TECHNIQUE: Single frontal radiographic view of the chest acquired. RADIATION DOSE: NA LIMITATIONS: None. FINDINGS: LUNGS AND PLEURA: Stable blunting left costophrenic angle may represent pleural effusion o r scarring. No new opacities. No pneumothorax. MEDIASTINUM AND HILAR STRUCTURES: No masses. Contour normal. HEART AND VASCULAR STRUCTURES: Heart stable in size. Normal vasculature. BONES: No acute findings. HARDWARE: Stable. OTHER: No other significant finding. IMPRESSION: STABLE APPEARANCE OF THE CHEST WITH POSSIBLE SMALL LEFT PLEURAL EFFUSION VERSUS PLEURAL THICKENING. TECHNICAL DOCUMENTATION: JOB ID: [id number] [email or web address]- All Rights Reserved
[2017-09-29 19:21] LABS: ANION GAP 6 (5-19); BLOOD UREA NITROGEN 7 mg/dL (7-20); CALCIUM 9.8 mg/dL (8.4-10.2); CARBON DIOXIDE 29 mmol/L (22-30); CHLORIDE 105 mmol/L (98-107); GLUCOSE 98 mg/dL (75-110); POTASSIUM 3.5 mmol/L (3.6-5.0); SODIUM 139.5 mmol/L (137-145)
[2017-09-29] MEDS: MIRTAZAPINE 15 MG TABLET PO SCH (21:26)
[2017-09-29] MEDS: MONTELUKAST SODIUM 10 MG TABLET PO SCH (21:26)
[2017-09-29] MEDS: DONEPEZIL HCL 5 MG TABLET PO SCH (21:27)
--- NOTE | 2017-09-29 21:29 | PDOC PROGRESS REPORT ---
Subjective Progress Note for:: 09/29/17 Subjective:: She was seen by the bedside, improving Reason For Visit: CELLULITIS OF THE LOWER EXTREMITY, SEPSIS FROM Physical Exam Vital Signs: Temp Pulse Resp BP Pulse Ox 99.6 F 79 22 H 141/62 H 98 09/29/17 19:55 09/29/17 19:55 09/29/17 19:55 09/29/17 19:55 09/29/17 19:55 Intake & Output 09/28/17 09/29/17 09/30/17 06:59 06:59 06:59 Intake Total 1650 1002 976 Output Total 1400 3700 775 Balance 250 -2698 201 Weight 91 kg 91 kg General appearance: PRESENT: no acute distress Head exam: PRESENT: atraumatic, normocephalic Eye exam: PRESENT: conjunctiva pink, EOMI, PERRLA Ear exam: PRESENT: normal external ear exam Mouth exam: PRESENT: moist, tongue midline Neck exam: PRESENT: full ROM Respiratory exam: PRESENT: clear to auscultation danitza Cardiovascular exam: PRESENT: RRR, +S1, +S2 Pulses: PRESENT: normal dorsalis pedis pul, +2 pedal pulses bilateral Vascular exam: PRESENT: normal capillary refill GI/Abdominal exam: PRESENT: normal bowel sounds, soft Rectal exam: PRESENT: deferred Neurological exam: PRESENT: alert Psychiatric exam: PRESENT: appropriate affect, normal mood Skin exam: PRESENT: dry, intact, warm. ABSENT: cyanosis, rash Results Laboratory Results: 09/29/17 18:30 09/29/17 18:30 09/29/17 09/29/17 18:30 18:30 WBC 12.2 H RBC 2.92 L Hgb 9.5 L Hct 27.9 L MCV 96 MCH 32.7 MCHC 34.2 RDW 14.0 Plt Count 342 Seg Neutrophils % 46.9 Lymphocytes % 40.6 Monocytes % 6.4 Eosinophils % 5.6 Basophils % 0.5 Absolute Neutrophils 5.7 Absolute Lymphocytes 5.0 H Absolute Monocytes 0.8 Absolute Eosinophils 0.7 H Absolute Basophils 0.1 Sodium 139.5 Potassium 3.5 L Chloride 105 Carbon Dioxide 29 Anion Gap 6 BUN 7 Creatinine 0.67 Est GFR ( Amer) > 60 Est GFR (Non-Af Amer) > 60 Glucose 98 Calcium 9.8 09/23/17 09/23/17 09/23/17 15:59 15:59 22:35 Creatine Kinase 41 68 CK-MB (CK-2) 0.38 Troponin I < 0.012 09/23/17 09/24/17 09/24/17 22:35 04:58 04:58 Creatine Kinase CK-MB (CK-2) 0.56 Troponin I < 0.012 Impressions: Lower Extremity CT 09/23/17 02:54 IMPRESSION: 1. Mild inflammatory change in the subcutaneous soft tissues overlying the sacrum as well as the posterior proximal and mid right thigh without well-circumscribed fluid collection or definite open wound. These findings could be seen with cellulitis. No definite lytic osseous lesion. If there is continued concern for osteomyelitis contrast-enhanced MRI could provide additional characterization. 2. Diverticulosis without evidence of diverticulitis. This exam was performed according to our departmental dose-optimization program, which includes automated exposure control, adjustment of the mA and/or kV according to patient size and/or use of iterative reconstruction technique. Pelvis CT 09/23/17 02:55 IMPRESSION: 1. Mild inflammatory change in the subcutaneous soft tissues overlying the sacrum as well as the posterior proximal and mid right thigh without well-circumscribed fluid collection or definite open wound. These findings could be seen with cellulitis. No definite lytic osseous lesion. If there is continued concern for osteomyelitis contrast-enhanced MRI could provide additional characterization. 2. Diverticulosis without evidence of diverticulitis. This exam was performed according to our departmental dose-optimization program, which includes automated exposure control, adjustment of the mA and/or kV according to patient size and/or use of iterative reconstruction technique. Chest X-Ray 09/29/17 00:00 IMPRESSION: STABLE APPEARANCE OF THE CHEST WITH POSSIBLE SMALL LEFT PLEURAL EFFUSION VERSUS PLEURAL THICKENING. Assessment & Plan - Diagnosis (1) Cellulitis of right lower extremity Is this a current diagnosis for this admission?: Yes (2) Sepsis due to cellulitis Is this a current diagnosis for this admission?: Yes (3) Chronic atrial fibrillation Is this a current diagnosis for this admission?: Yes (4) Dementia Qualifiers: Dementia type: Alzheimer's disease Alzheimer's disease onset: late-onset Dementia behavioral disturbance: with behavioral disturbance Qualified Code(s) : G30.1 - Alzheimer's disease with late onset; F02.81 - Dementia in other diseases classified elsewhere with behavioral disturbance; F02.81 - Dementia in other diseases classified elsewhere with behavioral disturbance; F02.81 - Dementia in other diseases classified elsewhere with behavioral disturbance Is this a current diagnosis for this admission?: Yes (5) Sacral decubitus ulcer, stage III Is this a current diagnosis for this admission?: Yes
[2017-09-30] MEDS: TRAMADOL HCL 50 MG TABLET PO PRN ×3 (03:10→23:29)
[2017-09-30] MEDS: PIPERACILLIN SODIUM/TAZOBACTAM 3.375 GM in NORMAL SALINE 100 ML IV SCH ×4 (05:38→23:20)
[2017-09-30] MEDS: CLINDAMYCIN 600 MG/D5W RTU 600 MG/50 ML RTUPB IV SCH ×3 (05:38→21:17)
[2017-09-30] MEDS: IPRATROPIUM/ALBUTEROL 0.5-2.5 MG/3 ML AMPUL NEB PRN (10:17)
[2017-09-30] MEDS: ALPRAZOLAM 0.5 MG TABLET PO PRN (10:34)
[2017-09-30] MEDS: APIXABAN 2.5 MG TABLET PO SCH ×2 (10:35→17:34)
[2017-09-30] MEDS: METOPROLOL SUCCINATE 50 MG TAB.SR.24H PO SCH (10:35)
[2017-09-30] MEDS: MEGESTROL ACETATE 20 MG TABLET PO SCH ×2 (10:36→21:17)
[2017-09-30] MEDS: CETIRIZINE 10 MG TABLET PO SCH (10:51)
[2017-09-30] MEDS: DOCUSATE SODIUM 100 MG CAPSULE PO SCH ×2 (10:52→17:30)
[2017-09-30] MEDS: NYSTATIN TOPICAL POWDER 15 GM TP SCH (14:15)
[2017-09-30] MEDS: SILVER SULFADIAZINE 1% CREAM 400 GM TP SCH (14:15)
--- NOTE | 2017-09-30 17:21 | PDOC PROGRESS REPORT ---
Subjective Progress Note for:: 09/30/17 Subjective:: No reported fever, chest pain or difficulty with breathing. No nausea or vomiting. Family at bedside reported fair amount of food intake. Reason For Visit: CELLULITIS OF THE LOWER EXTREMITY, SEPSIS FROM Physical Exam Vital Signs: Temp Pulse Resp BP Pulse Ox 99.0 F 92 22 H 125/46 L 100 09/30/17 12:34 09/30/17 14:00 09/30/17 12:34 09/30/17 12:34 09/30/17 12:34 Intake & Output 09/29/17 09/30/17 10/01/17 06:59 06:59 06:59 Intake Total 1002 2271 477 Output Total 3700 1950 625 Balance -2698 321 -148 Weight 91 kg 91.6 kg General appearance: PRESENT: no acute distress, obese Head exam: PRESENT: atraumatic, normocephalic Mouth exam: PRESENT: moist Respiratory exam: PRESENT: decreased breath sounds - at lung bases Cardiovascular exam: PRESENT: RRR. ABSENT: diastolic murmur, rubs, systolic murmur Vascular exam: PRESENT: normal capillary refill. ABSENT: pallor GI/Abdominal exam: PRESENT: normal bowel sounds, soft. ABSENT: distended, guarding, mass, organolmegaly, rebound, tenderness Extremities exam: ABSENT: pedal edema Musculoskeletal exam: PRESENT: deformity - multiple joints involvement with arthritis, tenderness - knee joint related to joint involvement with arthritis Neurological exam: PRESENT: alert - with baseline dementia, awake Psychiatric exam: ABSENT: agitated Skin exam: PRESENT: dry, warm, other - stage 3 pressure ulcer Results Laboratory Results: 09/29/17 18:30 09/29/17 18:30 09/29/17 09/29/17 18:30 18:30 WBC 12.2 H RBC 2.92 L Hgb 9.5 L Hct 27.9 L MCV 96 MCH 32.7 MCHC 34.2 RDW 14.0 Plt Count 342 Seg Neutrophils % 46.9 Lymphocytes % 40.6 Monocytes % 6.4 Eosinophils % 5.6 Basophils % 0.5 Absolute Neutrophils 5.7 Absolute Lymphocytes 5.0 H Absolute Monocytes 0.8 Absolute Eosinophils 0.7 H Absolute Basophils 0.1 Sodium 139.5 Potassium 3.5 L Chloride 105 Carbon Dioxide 29 Anion Gap 6 BUN 7 Creatinine 0.67 Est GFR ( Amer) > 60 Est GFR (Non-Af Amer) > 60 Glucose 98 Calcium 9.8 09/23/17 09/23/17 09/23/17 15:59 15:59 22:35 Creatine Kinase 41 68 CK-MB (CK-2) 0.38 Troponin I < 0.012 09/23/17 09/24/17 09/24/17 22:35 04:58 04:58 Creatine Kinase CK-MB (CK-2) 0.56 Troponin I < 0.012 Impressions: Lower Extremity CT 09/23/17 02:54 IMPRESSION: 1. Mild inflammatory change in the subcutaneous soft tissues overlying the sacrum as well as the posterior proximal and mid right thigh without well-circumscribed fluid collection or definite open wound. These findings could be seen with cellulitis. No definite lytic osseous lesion. If there is continued concern for osteomyelitis contrast-enhanced MRI could provide additional characterization. 2. Diverticulosis without evidence of diverticulitis. This exam was performed according to our departmental dose-optimization program, which includes automated exposure control, adjustment of the mA and/or kV according to patient size and/or use of iterative reconstruction technique. Pelvis CT 09/23/17 02:55 IMPRESSION: 1. Mild inflammatory change in the subcutaneous soft tissues overlying the sacrum as well as the posterior proximal and mid right thigh without well-circumscribed fluid collection or definite open wound. These findings could be seen with cellulitis. No definite lytic osseous lesion. If there is continued concern for osteomyelitis contrast-enhanced MRI could provide additional characterization. 2. Diverticulosis without evidence of diverticulitis. This exam was performed according to our departmental dose-optimization program, which includes automated exposure control, adjustment of the mA and/or kV according to patient size and/or use of iterative reconstruction technique. Chest X-Ray 09/29/17 00:00 IMPRESSION: STABLE APPEARANCE OF THE CHEST WITH POSSIBLE SMALL LEFT PLEURAL EFFUSION VERSUS PLEURAL THICKENING. Assessment & Plan - Diagnosis (1) Cellulitis of right lower extremity Is this a current diagnosis for this admission?: Yes Plan: See covering attending physician orders. Continue all current medication management. (2) Sacral decubitus ulcer, stage III Is this a current diagnosis for this admission?: Yes Plan: See covering attending physician orders. Continue all current medication management. (3) Chronic atrial fibrillation Is this a current diagnosis for this admission?: Yes Plan: See covering attending physician orders. Continue all current medication management. (4) Dementia Qualifiers: Dementia type: Alzheimer's disease Alzheimer's disease onset: late-onset Dementia behavioral disturbance: with behavioral disturbance Qualified Code(s) : G30.1 - Alzheimer's disease with late onset Plan: See covering attending physician orders. Continue all current medication management. - Time Time Spent with patient: 25-34 minutes Medications reviewed and adjusted accordingly: Yes Anticipated discharge: SNF Within: Other - Inpatient Certification Based on my medical assessment, after consideration of the patient's comorbidities, presenting symptoms, or acuity I expect that the services needed warrant INPATIENT care.: Yes I certify that my determination is in accordance with my understanding of Medicare's requirements for reasonable and necessary INPATIENT services [42 CFR 412.3e].: Yes Medical Necessity: Need Close Monitoring Due to Risk of Patient Decompensation, Need For IV Fluids, Need For Continuous Telemetry Monitoring, Need for IV Antibiotics, Risk of Complication if Not Cared For in Hospital Post Hospital Care: D/C or Transfer Summary - Plan Summary Plan Summary: See covering attending physician orders. Continue all current medication management.
[2017-09-30] MEDS: POTASSIUM CHLORIDE 10 MEQ TABLET.SA PO SCH (17:34)
[2017-09-30] MEDS: MIRTAZAPINE 15 MG TABLET PO SCH (21:17)
[2017-09-30] MEDS: DONEPEZIL HCL 5 MG TABLET PO SCH (21:17)
[2017-09-30] MEDS: MONTELUKAST SODIUM 10 MG TABLET PO SCH (21:17)
[2017-10-01] MEDS: PIPERACILLIN SODIUM/TAZOBACTAM 3.375 GM in NORMAL SALINE 100 ML IV SCH ×4 (05:07→23:36)
[2017-10-01] MEDS: CLINDAMYCIN 600 MG/D5W RTU 600 MG/50 ML RTUPB IV SCH ×3 (05:12→21:06)
[2017-10-01 05:35] LABS: ABSOLUTE BASOPHILS # (AUTO) 0.1 10^3/uL (0.0-0.2); ABSOLUTE EOSINOPHILS # (AUTO) 0.6 10^3/uL (0.0-0.6); ABSOLUTE LYMPHOCYTES (AUTO) 4.9 10^3/uL (0.5-4.7); ABSOLUTE MONOCYTES (AUTO) 0.9 10^3/uL (0.1-1.4); ABSOLUTE NEUT (AUTO) 5.4 10^3/uL (1.7-8.2); BASOPHILS % (AUTO) 0.6 % (0-2); EOSINOPHILS % (AUTO) 5.2 % (0-6); HEMATOCRIT 26.2 % (36.0-47.0); HEMOGLOBIN 8.9 g/dL (12.0-15.5); LYMPHOCYTES % (AUTO) 41.1 % (13-45); MEAN CORPUSCULAR HEMOGLOBIN 32.6 pg (27.0-33.4); MEAN CORPUSCULAR HGB CONC 33.8 g/dL (32.0-36.0); MEAN CORPUSCULAR VOLUME 96 fl (80-97); MONOCYTES % (AUTO) 7.6 % (3-13); PLATELET COUNT 351 10^3/uL (150-450); RED BLOOD COUNT 2.72 10^6/uL (3.72-5.28); RED CELL DISTRIBUTION WIDTH 14.1 % (11.5-14.0); SEGMENTED NEUTROPHILS % (AUTO) 45.5 % (42-78); TOTAL CELLS COUNTED % (AUTO) 100 %; WHITE BLOOD COUNT 11.8 10^3/uL (4.0-10.5)
[2017-10-01 06:01] LABS: ALANINE AMINOTRANSFERASE 19 U/L (9-52); ALBUMIN 2.9 g/dL (3.5-5.0); ALKALINE PHOSPHATASE 61 U/L (38-126); ANION GAP 7 (5-19); ASPARTATE AMINO TRANSFERASE 14 U/L (14-36); BLOOD UREA NITROGEN 8 mg/dL (7-20); CARBON DIOXIDE 26 mmol/L (22-30); CHLORIDE 108 mmol/L (98-107); GLUCOSE 102 mg/dL (75-110); MAGNESIUM 1.5 mg/dL (1.6-2.3); POTASSIUM 4.8 mmol/L (3.6-5.0); SODIUM 141.2 mmol/L (137-145); TOTAL PROTEIN 5.9 g/dL (6.3-8.2)
[2017-10-01 06:09] LABS: BILIRUBIN,TOTAL < 0.1 mg/dL (0.2-1.3)
[2017-10-01] MEDS: IPRATROPIUM/ALBUTEROL 0.5-2.5 MG/3 ML AMPUL NEB PRN (08:14)
[2017-10-01] MEDS: DOCUSATE SODIUM 100 MG CAPSULE PO SCH ×2 (09:57→17:45)
[2017-10-01] MEDS: MEGESTROL ACETATE 20 MG TABLET PO SCH ×2 (10:17→21:06)
[2017-10-01] MEDS: METOPROLOL SUCCINATE 50 MG TAB.SR.24H PO SCH (10:18)
[2017-10-01] MEDS: APIXABAN 2.5 MG TABLET PO SCH ×2 (10:18→17:44)
[2017-10-01] MEDS: CETIRIZINE 10 MG TABLET PO SCH (10:18)
[2017-10-01] MEDS: NYSTATIN TOPICAL POWDER 15 GM TP SCH (10:19)
[2017-10-01] MEDS: SILVER SULFADIAZINE 1% CREAM 400 GM TP SCH (10:19)
[2017-10-01] MEDS: ALPRAZOLAM 0.5 MG TABLET PO PRN (10:20)
[2017-10-01] MEDS: TRAMADOL HCL 50 MG TABLET PO PRN ×2 (10:37→21:19)
--- NOTE | 2017-10-01 14:13 | PDOC PROGRESS REPORT ---
Subjective Progress Note for:: 10/01/17 Subjective:: Daughter at bedside. Denied any chest pain or difficulty with breathing. No abdominal pain, nausea or vomiting. Tolerating oral feeding. Reason For Visit: CELLULITIS OF THE LOWER EXTREMITY, SEPSIS FROM Physical Exam Vital Signs: Temp Pulse Resp BP Pulse Ox 98.9 F 74 19 135/64 H 98 10/01/17 12:39 10/01/17 13:51 10/01/17 12:39 10/01/17 12:39 10/01/17 12:39 Intake & Output 09/30/17 10/01/17 10/02/17 06:59 06:59 06:59 Intake Total 2271 1888 297 Output Total 1950 1375 500 Balance 321 513 -203 Weight 91.6 kg 92.8 kg Physical Exam: General appearance: PRESENT: no acute distress, obese Head exam: PRESENT: atraumatic, normocephalic Mouth exam: PRESENT: moist Respiratory exam: PRESENT: decreased breath sounds - at lung bases Cardiovascular exam: PRESENT: RRR. ABSENT: diastolic murmur, rubs, systolic murmur Vascular exam: PRESENT: normal capillary refill. ABSENT: pallor GI/Abdominal exam: PRESENT: normal bowel sounds, soft. ABSENT: distended, guarding, mass, organomegaly, rebound, tenderness Extremities exam: ABSENT: pedal edema Musculoskeletal exam: PRESENT: deformity - multiple joints involvement with arthritis, tenderness - knee joint related to joint involvement with arthritis Neurological exam: PRESENT: alert - with baseline dementia, awake Psychiatric exam: ABSENT: agitated Skin exam: PRESENT: dry, warm, other - stage 3 pressure ulcer Results Laboratory Results: 10/01/17 05:00 10/01/17 05:00 10/01/17 10/01/17 05:00 05:00 WBC 11.8 H RBC 2.72 L Hgb 8.9 L Hct 26.2 L MCV 96 MCH 32.6 MCHC 33.8 RDW 14.1 H Plt Count 351 Seg Neutrophils % 45.5 Lymphocytes % 41.1 Monocytes % 7.6 Eosinophils % 5.2 Basophils % 0.6 Absolute Neutrophils 5.4 Absolute Lymphocytes 4.9 H Absolute Monocytes 0.9 Absolute Eosinophils 0.6 Absolute Basophils 0.1 Sodium 141.2 Potassium 4.8 Chloride 108 H Carbon Dioxide 26 Anion Gap 7 BUN 8 Creatinine 0.60 Est GFR ( Amer) > 60 Est GFR (Non-Af Amer) > 60 Glucose 102 Calcium 10.0 Magnesium 1.5 L Total Bilirubin < 0.1 L AST 14 ALT 19 Alkaline Phosphatase 61 Total Protein 5.9 L Albumin 2.9 L 09/23/17 09/23/17 09/23/17 15:59 15:59 22:35 Creatine Kinase 41 68 CK-MB (CK-2) 0.38 Troponin I < 0.012 09/23/17 09/24/17 09/24/17 22:35 04:58 04:58 Creatine Kinase CK-MB (CK-2) 0.56 Troponin I < 0.012 Impressions: Lower Extremity CT 09/23/17 02:54 IMPRESSION: 1. Mild inflammatory change in the subcutaneous soft tissues overlying the sacrum as well as the posterior proximal and mid right thigh without well-circumscribed fluid collection or definite open wound. These findings could be seen with cellulitis. No definite lytic osseous lesion. If there is continued concern for osteomyelitis contrast-enhanced MRI could provide additional characterization. 2. Diverticulosis without evidence of diverticulitis. This exam was performed according to our departmental dose-optimization program, which includes automated exposure control, adjustment of the mA and/or kV according to patient size and/or use of iterative reconstruction technique. Pelvis CT 09/23/17 02:55 IMPRESSION: 1. Mild inflammatory change in the subcutaneous soft tissues overlying the sacrum as well as the posterior proximal and mid right thigh without well-circumscribed fluid collection or definite open wound. These findings could be seen with cellulitis. No definite lytic osseous lesion. If there is continued concern for osteomyelitis contrast-enhanced MRI could provide additional characterization. 2. Diverticulosis without evidence of diverticulitis. This exam was performed according to our departmental dose-optimization program, which includes automated exposure control, adjustment of the mA and/or kV according to patient size and/or use of iterative reconstruction technique. Chest X-Ray 09/29/17 00:00 IMPRESSION: STABLE APPEARANCE OF THE CHEST WITH POSSIBLE SMALL LEFT PLEURAL EFFUSION VERSUS PLEURAL THICKENING. Assessment & Plan - Diagnosis (1) Cellulitis of right lower extremity Is this a current diagnosis for this admission?: Yes (2) Sacral decubitus ulcer, stage III Is this a current diagnosis for this admission?: Yes (3) Chronic atrial fibrillation Is this a current diagnosis for this admission?: Yes (4) Dementia Qualifiers: Dementia type: Alzheimer's disease Alzheimer's disease onset: late-onset Dementia behavioral disturbance: with behavioral disturbance Qualified Code(s) : G30.1 - Alzheimer's disease with late onset - Time Time Spent with patient: 25-34 minutes Medications reviewed and adjusted accordingly: Yes Anticipated discharge: SNF Within: Other - Inpatient Certification Based on my medical assessment, after consideration of the patient's comorbidities, presenting symptoms, or acuity I expect that the services needed warrant INPATIENT care.: Yes I certify that my determination is in accordance with my understanding of Medicare's requirements for reasonable and necessary INPATIENT services [42 CFR 412.3e].: Yes Medical Necessity: Need For IV Fluids, Need For Continuous Telemetry Monitoring , Need for IV Antibiotics, Risk of Complication if Not Cared For in Hospital Post Hospital Care: D/C or Transfer Summary - Plan Summary Plan Summary: See covering attending physician orders.
[2017-10-01] MEDS: POTASSIUM CHLORIDE 10 MEQ TABLET.SA PO SCH (17:45)
[2017-10-01] MEDS: MIRTAZAPINE 15 MG TABLET PO SCH (21:06)
[2017-10-01] MEDS: MONTELUKAST SODIUM 10 MG TABLET PO SCH (21:06)
[2017-10-01] MEDS: DONEPEZIL HCL 5 MG TABLET PO SCH (21:07)
[2017-10-02] MEDS: TRAMADOL HCL 50 MG TABLET PO PRN ×3 (04:49→23:21)
[2017-10-02] MEDS: CLINDAMYCIN 600 MG/D5W RTU 600 MG/50 ML RTUPB IV SCH ×3 (05:07→21:55)
[2017-10-02] MEDS: PIPERACILLIN SODIUM/TAZOBACTAM 3.375 GM in NORMAL SALINE 100 ML IV SCH ×3 (05:07→18:20)
[2017-10-02] MEDS: CETIRIZINE 10 MG TABLET PO SCH (10:02)
[2017-10-02] MEDS: APIXABAN 2.5 MG TABLET PO SCH ×2 (10:02→18:21)
[2017-10-02] MEDS: ALPRAZOLAM 0.5 MG TABLET PO PRN ×4 (10:02→23:22)
[2017-10-02] MEDS: METOPROLOL SUCCINATE 50 MG TAB.SR.24H PO SCH (10:03)
[2017-10-02] MEDS: MEGESTROL ACETATE 20 MG TABLET PO SCH ×2 (10:05→21:54)
[2017-10-02] MEDS: NYSTATIN TOPICAL POWDER 15 GM TP SCH (10:07)
[2017-10-02] MEDS: SILVER SULFADIAZINE 1% CREAM 400 GM TP SCH (10:07)
[2017-10-02] MEDS: DOCUSATE SODIUM 100 MG CAPSULE PO SCH ×2 (10:12→18:26)
[2017-10-02] MEDS: IPRATROPIUM/ALBUTEROL 0.5-2.5 MG/3 ML AMPUL NEB PRN (12:46)
[2017-10-02] MEDS: ACETAMINOPHEN 325 MG TABLET PO PRN (13:58)
[2017-10-02] MEDS: NORMAL SALINE INJ/PF 0.9% 10 ML SDV IV PRN (14:47)
--- NOTE | 2017-10-02 19:13 | PDOC DISCHARGE SUMMARY ---
General - Admit/Disc Date/PCP Admission Date/Primary Care Provider: 09/23/17 05:11 KEVIN BRANNON MD Discharge Date: 10/02/17 - Discharge Diagnosis (1) Cellulitis of right lower extremity Is this a current diagnosis for this admission?: Yes (2) Sepsis due to cellulitis Is this a current diagnosis for this admission?: Yes (3) Chronic atrial fibrillation Is this a current diagnosis for this admission?: Yes (4) Dementia Is this a current diagnosis for this admission?: Yes (5) Sacral decubitus ulcer, stage III Is this a current diagnosis for this admission?: Yes (6) Electrolyte disorder Is this a current diagnosis for this admission?: Yes (7) Hypokalemia Is this a current diagnosis for this admission?: Yes - Additional Information Resuscitation Status: Full Code Discharge Diet: As Tolerated Prescriptions: Silver Sulfadiazine [Silvadene 1% Cream 400 gm] 1 applic TP DAILY #2 jar Home Medications: Alprazolam [Xanax 0.5 mg Tablet] 0.5 mg PO BIDP PRN 09/23/17 Apixaban [Eliquis 2.5 mg Tablet] 2.5 mg PO BID 09/23/17 Cetirizine HCl [Zyrtec 10 mg Tablet] 10 mg PO DAILY 09/23/17 Donepezil HCl [Aricept] 10 mg PO QHS 09/23/17 Megestrol Acetate 40 mg PO BID 09/23/17 Metoprolol Succinate [Toprol Xl 50 mg Tab.sr] 50 mg PO DAILY 09/23/17 Mirtazapine [Remeron] 30 mg PO QHS 09/23/17 Montelukast Sodium [Singulair 10 mg Tablet] 10 mg PO QHS 09/23/17 Tramadol HCl/Acetaminophen [Tramadol-Acetaminophn 37.5-325] 1 tab PO Q6HP PRN Silver Sulfadiazine [Silvadene 1% Cream 400 gm] 1 applic TP DAILY #2 jar History of Present Illness History of Present Illness: MAGDALENO NAVAS is a 82 year old female, she has advanced dementia she was brought to the emergency room for evaluation of extensive cellulitis of the right leg, there was associated leukocytosis. No reasonable history could be obtained from this patient because of her baseline dementia, she is sedentary, bed bound , history of chronic atrial fibrillation, pressure ulcer involving the sacrum. 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 Hospital Course Hospital Course: Patient was admitted for the management of severe extensive cellulitis of the right lower extremities, there was associated sacral decubiti ulcer with maceration of the back. She was treated with IV antibiotic with very good results there was complete resolution of the cellulitis with IV antibiotic she also had hypokalemia, this was replaced with IV potassium and p.o. potassium. Patient presentation was consistent with sepsis due to severe cellulitis of the right lower extremities, she will be discharged home today Physical Exam Vital Signs: Temp Pulse Resp BP Pulse Ox 98.1 F 73 18 142/58 H 100 10/02/17 18:38 10/02/17 18:38 10/02/17 18:38 10/02/17 18:38 10/02/17 18:38 Intake & Output 10/01/17 10/02/17 10/03/17 06:59 06:59 06:59 Intake Total 1888 2004 741 Output Total 1375 3025 1075 Balance 513 -1021 -334 Weight 92.8 kg 90.4 kg General appearance: PRESENT: no acute distress, well-developed, well-nourished Head exam: PRESENT: atraumatic, normocephalic Eye exam: PRESENT: conjunctiva pink, EOMI, PERRLA Ear exam: PRESENT: normal external ear exam Mouth exam: PRESENT: moist, tongue midline Neck exam: PRESENT: full ROM Cardiovascular exam: PRESENT: RRR, +S1, +S2 Pulses: PRESENT: normal dorsalis pedis pul, +2 pedal pulses bilateral GI/Abdominal exam: PRESENT: normal bowel sounds, soft Rectal exam: PRESENT: deferred Neurological exam: PRESENT: alert Psychiatric exam: PRESENT: appropriate affect, normal mood Skin exam: PRESENT: dry, intact, warm Results Laboratory Results: 10/01/17 05:00 10/01/17 05:00 09/23/17 09/23/17 09/23/17 15:59 15:59 22:35 Creatine Kinase 41 68 CK-MB (CK-2) 0.38 Troponin I < 0.012 09/23/17 09/24/17 09/24/17 22:35 04:58 04:58 Creatine Kinase CK-MB (CK-2) 0.56 Troponin I < 0.012 Impressions: Lower Extremity CT 09/23/17 02:54 IMPRESSION: 1. Mild inflammatory change in the subcutaneous soft tissues overlying the sacrum as well as the posterior proximal and mid right thigh without well-circumscribed fluid collection or definite open wound. These findings could be seen with cellulitis. No definite lytic osseous lesion. If there is continued concern for osteomyelitis contrast-enhanced MRI could provide additional characterization. 2. Diverticulosis without evidence of diverticulitis. This exam was performed according to our departmental dose-optimization program, which includes automated exposure control, adjustment of the mA and/or kV according to patient size and/or use of iterative reconstruction technique. Pelvis CT 09/23/17 02:55 IMPRESSION: 1. Mild inflammatory change in the subcutaneous soft tissues overlying the sacrum as well as the posterior proximal and mid right thigh without well-circumscribed fluid collection or definite open wound. These findings could be seen with cellulitis. No definite lytic osseous lesion. If there is continued concern for osteomyelitis contrast-enhanced MRI could provide additional characterization. 2. Diverticulosis without evidence of diverticulitis. This exam was performed according to our departmental dose-optimization program, which includes automated exposure control, adjustment of the mA and/or kV according to patient size and/or use of iterative reconstruction technique. Chest X-Ray 09/29/17 00:00 IMPRESSION: STABLE APPEARANCE OF THE CHEST WITH POSSIBLE SMALL LEFT PLEURAL EFFUSION VERSUS PLEURAL THICKENING.
[2017-10-02 20:58] VITALS: BP 149/71
[2017-10-02] MEDS: DONEPEZIL HCL 5 MG TABLET PO SCH (21:54)
[2017-10-02] MEDS: MIRTAZAPINE 15 MG TABLET PO SCH (21:54)
[2017-10-02] MEDS: MONTELUKAST SODIUM 10 MG TABLET PO SCH (21:59)
== END 2017-10-03 00:40 | disposition home or self-care (01) | DRG 871 ==
LOC: ER 02:30 → UNDOADMIN 05:11 → EH 05:11 → 3W 09-24 00:55
PROVIDERS: ADMIT Internal Medicine; ATTEND Internal Medicine
PROC: 02HV33Z Insertion of Infusion Device into Superior Vena Cava, Percutaneous Approach (ICD-10-PCS; principal; 2017-09-24)
PROC: B548ZZA Ultrasonography of Superior Vena Cava, Guidance (ICD-10-PCS; 2017-09-24)
PROC: 3E0F73Z Introduction of Anti-inflammatory into Respiratory Tract, Via Natural or Artificial Opening (ICD-10-PCS; 2017-09-28)
DX: A41.9 Sepsis, unspecified organism (principal); L89.153 Pressure ulcer of sacral region, stage 3; L03.115 Cellulitis of right lower limb; I48.2 Chronic atrial fibrillation; E87.8 Other disorders of electrolyte and fluid balance, not elsewhere classified; E87.6 Hypokalemia; K57.30 Diverticulosis of large intestine without perforation or abscess without bleeding; I10 Essential (primary) hypertension; K44.9 Diaphragmatic hernia without obstruction or gangrene; M19.90 Unspecified osteoarthritis, unspecified site; G30.1 Alzheimer's disease with late onset; F02.80 Dementia in other diseases classified elsewhere, unspecified severity, without behavioral disturbance, psychotic disturbance, mood disturbance, and anxiety; M15.3 Secondary multiple arthritis; Z74.01 Bed confinement status; Z87.891 Personal history of nicotine dependence; Z79.899 Other long term (current) drug therapy
CPT/HCPCS: 36415; 71045; 72192; 80048; 80053; 80061; 80076; 80307; 81001; 82140; 82150; 82550; 82553; 83036; 83605; 83690; 83735; 84100; 84133; 84439; 84443; 84484; 85025; 87040; 87086; 94640; 96365; 99285; C1751; J1642; J1940; J2543; J3370; J3480; J3490; J7030; J7620

== ENCOUNTER → 2018-01-19 | Outpatient (CLI) | payer MEDICARE, MEDICAID ==
--- NOTE | 2018-01-19 17:05 | RADIOLOGY REPORT (SQ) ---
EXAM DESCRIPTION: CHEST 2 VIEWS COMPLETED DATE/TIME: 01/19/2018 4:52 pm REASON FOR STUDY: Pneumonia, unspecified organism COMPARISON: 2014. NUMBER OF VIEWS: Two view. TECHNIQUE: Frontal and lateral radiographic views of the chest acquired. LIMITATIONS: None. FINDINGS: LUNGS AND PLEURA: Low lung volumes. No opacities, masses or pneumothorax. No pleural eff usion. MEDIASTINUM AND HILAR STRUCTURES: No masses. No contour abnormalities. HEART AND VASCULAR STRUCTURES: Heart normal in size and contour. No evidence for failure. BONES: No acute findings. HARDWARE: None in the chest. OTHER: No other significant finding. IMPRESSION: LOW LUNG VOLUMES. NO SIGNIFICANT RADIOGRAPHIC FINDING IN THE CHEST. TECHNICAL DOCUMENTATION: JOB ID: [id number] [employer]- All Rights Reserved Reading location - IP/workstation name: Unknown
== END ==
LOC: RAD 16:30
PROVIDERS: ATTEND Internal Medicine
DX: J18.9 Pneumonia, unspecified organism (principal)
CPT/HCPCS: 71046

== ENCOUNTER 2018-04-21 13:17 | Inpatient (IN) | payer MEDICARE, MEDICAID ==
[2018-04-21] MEDS ORDERED: NORMAL SALINE 1000 ML 1,000 ML IV ONE ×2 (13:41→15:03)
[2018-04-21] MEDS ORDERED: CEFTRIAXONE 2 GM/D5W RTU 2 GM/50 ML RTUPB IV ONE (13:42)
[2018-04-21] MEDS ORDERED: ACETAMINOPHEN 325 MG TABLET PO ONE (13:42)
--- NOTE | 2018-04-21 13:51 | ER Document Report ---
ED General - General Chief Complaint: Breathing Difficulty Stated Complaint: DIFFICULTY BREATHING Time Seen by Provider: 04/21/18 13:27 Mode of Arrival: Medic Information source: Relative, Emergency Med Personnel, [facility] Records Cannot obtain history due to: Dementia Notes: 83-year-old female with dementia, atrial fibrillation, hypertension, hypothyroidism, chronic urinary tract infection presents via EMS from home after daughter reports an episode of shaking and shortness of breath. History is provided by the daughter because of the patient's dementia. She states that she was eating her breakfast of archibald and grits when she suddenly began violently shaking. She states this lasted for approximately 5 minutes and resolved. Patient did not lose consciousness. She does not believe that this was seizure-like activity. Daughter reports the patient has otherwise been well and denies any known fever, cough, vomiting, diarrhea. Patient was treated for urinary tract infection approximately 1 month ago with Macrobid. Patient did have an admission in September 2017 for sepsis per the daughter. TRAVEL OUTSIDE OF THE [place] IN LAST 30 DAYS: No - HPI Onset: Just prior to arrival Onset/Duration: Sudden Associated symptoms: Fever Similar symptoms previously: Yes Recently seen / treated by doctor: Yes - 03/2018 - Related Data Allergies/Adverse Reactions: No Known Allergies Allergy (Verified 09/23/17 03:26) Past Medical History - General Information source: Relative, Emergency Med Personnel, [facility] Records Cannot obtain history due to: Dementia - Social History Smoking Status: Never Smoker Chew tobacco use (# tins/day): No Frequency of alcohol use: None Drug Abuse: None Lives with: Family Family History: Reviewed & Not Pertinent Patient has suicidal ideation: No Patient has homicidal ideation: No - Past Medical History Cardiac Medical History: Reports: Hx Atrial Fibrillation, Hx Congestive Heart Failure, Hx Hypertension Renal/ Medical History: Denies: Hx Peritoneal Dialysis GI Medical History: Reports: Hx Hiatal Hernia Musculoskeletal Medical History: Reports Hx Arthritis Psychiatric Medical History: Reports: Hx Dementia Past Surgical History: Reports: Hx Section - x2, Hx Thyroid Surgery - removal of left side. Denies: Hx Mastectomy, Hx Open Heart Surgery, Hx Pacemaker - Immunizations Immunizations up to date: Yes Hx Diphtheria, Pertussis, Tetanus Vaccination: Yes Hx Pneumococcal Vaccination: 07/12/17 Review of Systems - Review of Systems -: Yes ROS unobtainable due to patient's medical condition Physical Exam - Vital signs Vitals: Resp BP Pulse Ox 25 H 153/80 H 97 04/21/18 13:23 04/21/18 13:23 04/21/18 13:23 Interpretation: Hypertensive, Tachycardic, Febrile - Notes Notes: PHYSICAL EXAMINATION: GENERAL: Ill-appearing, mild distress. HEAD: Atraumatic, normocephalic. EYES: Pupils equal round and reactive to light, extraocular movements intact, conjunctiva are normal. ENT: Nares patent, oropharynx clear without exudates. Moist mucous membranes. NECK: Normal range of motion, supple without lymphadenopathy LUNGS: Breath sounds clear to auscultation bilaterally and equal. No wheezes rales or rhonchi. HEART: Regular rate and rhythm without murmurs ABDOMEN: Soft, nontender, nondistended abdomen. No guarding, no rebound. No masses appreciated. Female : Large sacral decubitus ulcer, Musculoskeletal: Normal range of motion, no pitting or edema. No cyanosis. NEUROLOGICAL: Cranial nerves grossly intact. Moaning. PSYCH: Normal mood, normal affect. SKIN: Left inner thigh erythematous, no induration or fluctuance. Course - Re-evaluation Re-evalutation: Laboratory 04/21/18 04/21/18 04/21/18 13:45 13:45 13:45 WBC 21.7 H RBC 3.83 Hgb 12.6 Hct 39.1 MCV 102 H MCH 32.9 MCHC 32.2 RDW 15.6 H Plt Count 200 Total Counted 100 Seg Neutrophils % Not Reportable Seg Neuts % (Manual) 73 Lymphocytes % Not Reportable Lymphocytes % (Manual) 25 Monocytes % Not Reportable Monocytes % (Manual) 2 L Eosinophils % Not Reportable Eosinophils % (Manual) 0 Basophils % Not Reportable Basophils % (Manual) 0 Absolute Neutrophils Not Reportable Abs Neuts (Manual) 15.8 H Absolute Lymphocytes Not Reportable Abs Lymphs (Manual) 5.4 H Absolute Monocytes Not Reportable Abs Monocytes (Manual) 0.4 Absolute Eosinophils Not Reportable Absolute Eos (Manual) 0.0 Absolute Basophils Not Reportable Abs Basophils (Manual) 0.0 Clumped Platelets PRESENT Platelet Comment ADEQUATE Anisocytosis SLIGHT Macrocytosis 1+ PT Cancelled INR Cancelled APTT Cancelled Sodium 146.0 H Potassium 4.2 Chloride 109 H Carbon Dioxide 19 L Anion Gap 18 BUN 14 Creatinine 0.49 L Est GFR ( Amer) > 60 Est GFR (Non-Af Amer) > 60 Glucose 91 Lactic Acid Calcium 10.1 Total Bilirubin 0.6 Direct Bilirubin 0.4 Neonat Total Bilirubin Not Reportable Neonat Direct Bilirubin Not Reportable Neonat Indirect Bili Not Reportable AST 23 ALT 13 Alkaline Phosphatase 65 Creatine Kinase 65 CK-MB (CK-2) Troponin I NT-Pro-B Natriuret Pep Total Protein 7.1 Albumin 3.6 Lipase 92.3 Urine Color Urine Appearance Urine pH Ur Specific [place] Urine Protein Urine Glucose (UA) Urine Ketones Urine Blood Urine Nitrite Urine Bilirubin Urine Urobilinogen Ur Leukocyte Esterase Urine WBC (Auto) Urine RBC (Auto) Urine Bacteria (Auto) Squamous Epi Cells Auto U Non-Squamous Epis Auto Urine Mucus (Auto) Urine Ascorbic Acid 04/21/18 04/21/18 04/21/18 13:45 14:30 14:30 WBC RBC Hgb Hct MCV MCH MCHC RDW Plt Count Total Counted Seg Neutrophils % Seg Neuts % (Manual) Lymphocytes % Lymphocytes % (Manual) Monocytes % Monocytes % (Manual) Eosinophils % Eosinophils % (Manual) Basophils % Basophils % (Manual) Absolute Neutrophils Abs Neuts (Manual) Absolute Lymphocytes Abs Lymphs (Manual) Absolute Monocytes Abs Monocytes (Manual) Absolute Eosinophils Absolute Eos (Manual) Absolute Basophils Abs Basophils (Manual) Clumped Platelets Platelet Comment Anisocytosis Macrocytosis PT 16.4 H INR 1.26 APTT 29.3 Sodium Potassium Chloride Carbon Dioxide Anion Gap BUN Creatinine Est GFR ( Amer) Est GFR (Non-Af Amer) Glucose Lactic Acid 3.6 H Calcium Total Bilirubin Direct Bilirubin Neonat Total Bilirubin Neonat Direct Bilirubin Neonat Indirect Bili AST ALT Alkaline Phosphatase Creatine Kinase CK-MB (CK-2) 0.58 Troponin I < 0.120 NT-Pro-B Natriuret Pep 151 Total Protein Albumin Lipase Urine Color Urine Appearance Urine pH Ur Specific [place] Urine Protein Urine Glucose (UA) Urine Ketones Urine Blood Urine Nitrite Urine Bilirubin Urine Urobilinogen Ur Leukocyte Esterase Urine WBC (Auto) Urine RBC (Auto) Urine Bacteria (Auto) Squamous Epi Cells Auto U Non-Squamous Epis Auto Urine Mucus (Auto) Urine Ascorbic Acid 04/21/18 14:40 WBC RBC Hgb Hct MCV MCH MCHC RDW Plt Count Total Counted Seg Neutrophils % Seg Neuts % (Manual) Lymphocytes % Lymphocytes % (Manual) Monocytes % Monocytes % (Manual) Eosinophils % Eosinophils % (Manual) Basophils % Basophils % (Manual) Absolute Neutrophils Abs Neuts (Manual) Absolute Lymphocytes Abs Lymphs (Manual) Absolute Monocytes Abs Monocytes (Manual) Absolute Eosinophils Absolute Eos (Manual) Absolute Basophils Abs Basophils (Manual) Clumped Platelets Platelet Comment Anisocytosis Macrocytosis PT INR APTT Sodium Potassium Chloride Carbon Dioxide Anion Gap BUN Creatinine Est GFR ( Amer) Est GFR (Non-Af Amer) Glucose Lactic Acid Calcium Total Bilirubin Direct Bilirubin Neonat Total Bilirubin Neonat Direct Bilirubin Neonat Indirect Bili AST ALT Alkaline Phosphatase Creatine Kinase CK-MB (CK-2) Troponin I NT-Pro-B Natriuret Pep Total Protein Albumin Lipase Urine Color YELLOW Urine Appearance CLOUDY Urine pH 5.0 Ur Specific [place] 1.018 Urine Protein NEGATIVE Urine Glucose (UA) NEGATIVE Urine Ketones NEGATIVE Urine Blood LARGE H Urine Nitrite NEGATIVE Urine Bilirubin NEGATIVE Urine Urobilinogen NEGATIVE Ur Leukocyte Esterase LARGE H Urine WBC (Auto) >182 Urine RBC (Auto) 140 Urine Bacteria (Auto) TRACE Squamous Epi Cells Auto 2 U Non-Squamous Epis Auto 5 Urine Mucus (Auto) RARE Urine Ascorbic Acid NEGATIVE Chest X-Ray 04/21/18 13:39 IMPRESSION: Stable radiographic appearance of the chest 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 No evidence of acute cardiopulmonary abnormality. 04/21/18 17:44 83-year-old female with dementia, atrial fibrillation, hypertension, hypothyroidism, chronic urinary tract infection presents via EMS from home after daughter reports an episode of shaking and shortness of breath. History is provided by the daughter because of the patient's dementia. She states that she was eating her breakfast of archibald and grits when she suddenly began violently shaking. She states this lasted for approximately 5 minutes and resolved. Patient did not lose consciousness. She does not believe that this was seizure-like activity. Daughter reports the patient has otherwise been well and denies any known fever, cough, vomiting, diarrhea. Patient was treated for urinary tract infection approximately 1 month ago with Macrobid. Patient did have an admission in September 2017 for sepsis per the daughter. Upon arrival patient is ill appearing, febrile, tachycardic. she is non-verbal at baseline. Patient found to have a significant leukocytosis, an elevated lactate and an urinlaysis conistent with infection. Patient received IV fluids, ceftriaxone, vancomycin and tylenol. Although likely source of infection is the urine consider sacral decubs as secondary source. Patient will be admitted to Dr García to the IMCU. - Vital Signs Vital signs: Temp Pulse Resp BP Pulse Ox 100.3 F 31 H 131/60 H 97 04/21/18 17:02 04/21/18 17:01 04/21/18 17:01 04/21/18 17:01 - Laboratory Result Diagrams: 04/21/18 13:45 04/21/18 13:45 Laboratory results interpreted by me: 04/21/18 04/21/18 04/21/18 13:45 13:45 14:30 WBC 21.7 H MCV 102 H RDW 15.6 H Monocytes % (Manual) 2 L Abs Neuts (Manual) 15.8 H Abs Lymphs (Manual) 5.4 H PT 16.4 H Sodium 146.0 H Chloride 109 H Carbon Dioxide 19 L Creatinine 0.49 L Lactic Acid Urine Blood Ur Leukocyte Esterase 04/21/18 04/21/18 14:30 14:40 WBC MCV RDW Monocytes % (Manual) Abs Neuts (Manual) Abs Lymphs (Manual) PT Sodium Chloride Carbon Dioxide Creatinine Lactic Acid 3.6 H Urine Blood LARGE H Ur Leukocyte Esterase LARGE H - Diagnostic Test Radiology reviewed: Image reviewed, Reports reviewed - EKG Interpretation by Me EKG shows normal: Sinus rhythm Rate: Tachycardia Rhythm: NSR When compared to previous EKG there are: No significant change Discharge - Discharge Clinical Impression: Sacral decubitus ulcer, stage III, Chronic atrial fibrillation UTI (urinary tract infection) Qualifiers: Urinary tract infection type: site unspecified Hematuria presence: with hematuria Qualified Code(s): N39.0 - Urinary tract infection, site not specified Cellulitis Qualifiers: Site of cellulitis: extremity Site of cellulitis of extremity: lower extremity Laterality: left Qualified Code(s): L03.116 - Cellulitis of left lower limb Sepsis Qualifiers: Sepsis type: sepsis due to unspecified organism Qualified Code(s): A41.9 - Sepsis, unspecified organism Fever Qualifiers: Fever type: unspecified Qualified Code(s): R50.9 - Fever, unspecified Leukocytosis Qualifiers: Leukocytosis type: unspecified Qualified Code(s): D72.829 - Elevated white blood cell count, unspecified Altered mental status Qualifiers: Altered mental status type: unspecified Qualified Code(s): R41.82 - Altered mental status, unspecified Condition: Fair Disposition: ADMITTED INPATIENT Admitting Provider: [facility] Unit Admitted: [facility]
[2018-04-21 14:19] LABS: HEMATOCRIT 39.1 % (36.0-47.0); HEMOGLOBIN 12.6 g/dL (12.0-15.5); MEAN CORPUSCULAR HEMOGLOBIN 32.9 pg (27.0-33.4); MEAN CORPUSCULAR HGB CONC 32.2 g/dL (32.0-36.0); MEAN CORPUSCULAR VOLUME 102 fl (80-97); PLATELET COUNT 200 10^3/uL (150-450); RED BLOOD COUNT 3.83 10^6/uL (3.72-5.28); RED CELL DISTRIBUTION WIDTH 15.6 % (11.5-14.0)
--- NOTE | 2018-04-21 14:27 | RADIOLOGY REPORT (SQ) ---
EXAM DESCRIPTION: CHEST SINGLE VIEW COMPLETED DATE/TIME: 04/21/2018 2:09 pm REASON FOR STUDY: sob COMPARISON: 01/19/2018 EXAM PARAMETERS: NUMBER OF VIEWS: One view. TECHNIQUE: Single frontal radiographic view of the chest acquired. RADIATION DOSE: NA LIMITATIONS: None. FINDINGS: LUNGS AND PLEURA: No opacities, masses or pneumothorax. No pleural effusion. MEDIASTINUM AND HILAR STRUCTURES: Superior mediastinal mass with tracheal deviation appears unchanged in the study interval. HEART AND VASCULAR STRUCTURES: Heart normal in size. Normal vasculature. BONES: No acute findings. HARDWARE: Cervicothoracic junction surgical clips, unchanged. OTHER: No other significant finding. IMPRESSION: Stable radiographic appearance of the chest demonstrating a superior mediastinal mass wi th tracheal deviation. No evidence of acute cardiopulmonary abnormality. TECHNICAL DOCUMENTATION: JOB ID: [id number] [employer]- All Rights Reserved Reading location - IP/workstation name: [email or web address]
[2018-04-21 14:40] LABS: ALANINE AMINOTRANSFERASE 13 U/L (9-52); ALBUMIN 3.6 g/dL (3.5-5.0); ALKALINE PHOSPHATASE 65 U/L (38-126); ANION GAP 18 (5-19); ASPARTATE AMINO TRANSFERASE 23 U/L (14-36); BILIRUBIN,DIRECT 0.4 mg/dL (0.0-0.4); BILIRUBIN,TOTAL 0.6 mg/dL (0.2-1.3); BLOOD UREA NITROGEN 14 mg/dL (7-20); CALCIUM 10.1 mg/dL (8.4-10.2); CARBON DIOXIDE 19 mmol/L (22-30); CHLORIDE 109 mmol/L (98-107); CREATINE KINASE 65 U/L (30-135); GLUCOSE 91 mg/dL (75-110); LIPASE 92.3 U/L (23-300); POTASSIUM 4.2 mmol/L (3.6-5.0); TOTAL PROTEIN 7.1 g/dL (6.3-8.2)
[2018-04-21 14:41] LABS: ABSOLUTE LYMPHOCYTES# (MANUAL) 5.4 10^3/uL (0.5-4.7); ABSOLUTE MONOCYTES # (MANUAL) 0.4 10^3/uL (0.1-1.4); ABSOLUTE NEUTROPHILS# (MANUAL) 15.8 10^3/uL (1.7-8.2); BASOPHILS % (MANUAL) 0 % (0-2); EOSINOPHILS % (MANUAL) 0 % (0-6); LYMPHOCYTES % (MANUAL) 25 % (13-45); MONOCYTES % (MANUAL) 2 % (3-13); SEGMENTED NEUTROPHILS % (MAN) 73 % (42-78); TOTAL CELLS COUNTED 100
[2018-04-21 14:42] LABS: ANISOCYTOSIS SLIGHT; PLATELET CLUMPS PRESENT; PLATELET COMMENT ADEQUATE; WHITE BLOOD COUNT 21.7 10^3/uL (4.0-10.5)
[2018-04-21 14:48] LABS: CREATINE KINASE MB 0.58 ng/mL (<4.55); NT PRO BNP 151 pg/mL (<450)
[2018-04-21 14:50] LABS: INTERNATIONAL RATION (INR) 1.26; PROTHROMBIN TIME 16.4 SEC (11.4-15.4)
[2018-04-21 14:51] LABS: PARTIAL THROMBOPLASTIN TIME 29.3 SEC (23.5-35.8)
[2018-04-21 15:00] LABS: TROPONIN I < 0.120 ng/mL
[2018-04-21] MEDS ORDERED: VANCOMYCIN HCL INJ 1000 MG VIAL IV ONE (15:03)
[2018-04-21 15:19] LABS: APPEARANCE,URINE CLOUDY; BILIRUBIN,URINE NEGATIVE (NEGATIVE); COLOR,URINE YELLOW; GLUCOSE, URINE NEGATIVE (NEGATIVE); KETONES,URINE NEGATIVE (NEGATIVE); LEUKOCYTE ESTERASE,URINE LARGE (NEGATIVE); NITRITE,URINE NEGATIVE (NEGATIVE); PROTEIN,URINE NEGATIVE (NEGATIVE); URINE SPECIFIC GRAVITY 1.018; UROBILINOGEN,URINE NEGATIVE mg/dL (<2.0)
[2018-04-21] MEDS ORDERED: IPRATROPIUM/ALBUTEROL 0.5-2.5 MG/3 ML AMPUL NEB PRN (16:42)
[2018-04-21] MEDS ORDERED: NORMAL SALINE 1000 ML 1,000 ML IV PRN (16:42)
[2018-04-21] MEDS ORDERED: (PENDING PHARMACY ID) (Dexlansoprazole [Dexilant 30 Mg Capsule] 30 MG) PO PRN (16:59)
[2018-04-21] MEDS ORDERED: ALPRAZOLAM 0.5 MG TABLET PO PRN (16:59)
[2018-04-21] MEDS ORDERED: LANSOPRAZOLE 30 MG TAB.RAP.DR PO PRN (17:09)
[2018-04-21] MEDS ORDERED: VANCOMYCIN HCL 0 MG in DEXTROSE 5%-WATER 250 ML IV NR (20:00)
[2018-04-21] MEDS: ACETAMINOPHEN 325 MG TABLET PO PRN (20:19)
[2018-04-21] MEDS ORDERED: VANCOMYCIN HCL INJ 1000 MG VIAL ONE (20:49)
[2018-04-21] MEDS: NORMAL SALINE 1000 ML 1,000 ML IV PRN (21:00)
--- NOTE | 2018-04-21 21:07 | EKG REPORT ---
SEVERITY:- OTHERWISE NORMAL ECG - SINUS TACHYCARDIA : Confirmed by: Kajal Ortiz MD 21-Apr-2018 21:06:48
[2018-04-21] MEDS ORDERED: MEGESTROL ACETATE 20 MG TABLET PO SCH (22:00)
[2018-04-21] MEDS ORDERED: CEFEPIME 2 GM/D5W RTU 2 GM/50 ML RTUPB IV ONE (22:11)
[2018-04-21] MEDS: APIXABAN 2.5 MG TABLET PO SCH (22:14)
[2018-04-21] MEDS: MONTELUKAST SODIUM 10 MG TABLET PO SCH (22:14)
[2018-04-21] MEDS: FAMOTIDINE INJ/PF 20 MG/2 ML SDV IV SCH (22:14)
[2018-04-21] MEDS: MIRTAZAPINE 15 MG TABLET PO SCH (22:14)
[2018-04-21] MEDS: DONEPEZIL HCL 5 MG TABLET PO SCH (22:14)
[2018-04-21] MEDS: CEFEPIME 2 GM/D5W RTU 2 GM/50 ML RTUPB IV SCH (22:25)
[2018-04-22] MEDS ORDERED: VANCOMYCIN HCL INJ 1000 MG VIAL IV PRN (03:00)
[2018-04-22] MEDS ORDERED: VANCOMYCIN HCL 1,000 MG in DEXTROSE 5%-WATER 250 ML IV ONE (03:00)
[2018-04-22 09:41] LABS: HEMATOCRIT 35.6 % (36.0-47.0); MEAN CORPUSCULAR HEMOGLOBIN 32.3 pg (27.0-33.4); MEAN CORPUSCULAR HGB CONC 33.7 g/dL (32.0-36.0); PLATELET COUNT 216 10^3/uL (150-450); RED BLOOD COUNT 3.71 10^6/uL (3.72-5.28); RED CELL DISTRIBUTION WIDTH 14.7 % (11.5-14.0); WHITE BLOOD COUNT 20.6 10^3/uL (4.0-10.5)
[2018-04-22 09:56] LABS: ALANINE AMINOTRANSFERASE 25 U/L (9-52); ALBUMIN 3.2 g/dL (3.5-5.0); ALKALINE PHOSPHATASE 69 U/L (38-126); ANION GAP 14 (5-19); ASPARTATE AMINO TRANSFERASE 13 U/L (14-36); BILIRUBIN,DIRECT 0.3 mg/dL (0.0-0.4); BILIRUBIN,TOTAL 0.3 mg/dL (0.2-1.3); BLOOD UREA NITROGEN 13 mg/dL (7-20); CALCIUM 9.7 mg/dL (8.4-10.2); CARBON DIOXIDE 19 mmol/L (22-30); CHLORIDE 107 mmol/L (98-107); GLUCOSE 105 mg/dL (75-110); SODIUM 140.1 mmol/L (137-145); TOTAL PROTEIN 6.5 g/dL (6.3-8.2)
[2018-04-22] MEDS ORDERED: NYSTATIN TOPICAL POWDER 15 GM TP SCH (10:00)
[2018-04-22] MEDS ORDERED: ENOXAPARIN SODIUM INJ 40 MG/0.4 ML DISP.SYRIN SUBCUT SCH (10:00)
[2018-04-22 10:01] LABS: POTASSIUM 3.1 mmol/L (3.6-5.0)
[2018-04-22 10:11] LABS: ABSOLUTE LYMPHOCYTES# (MANUAL) 2.5 10^3/uL (0.5-4.7); ABSOLUTE NEUTROPHILS# (MANUAL) 18.1 10^3/uL (1.7-8.2); BASOPHILS % (MANUAL) 0 % (0-2); EOSINOPHILS % (MANUAL) 0 % (0-6); LYMPHOCYTES % (MANUAL) 12 % (13-45); MONOCYTES % (MANUAL) 0 % (3-13); PLATELET COMMENT ADEQUATE; RBC MORPHOLOGY COMMENT NORMO-CYTIC/CHROMIC; SEGMENTED NEUTROPHILS % (MAN) 88 % (42-78); TOTAL CELLS COUNTED 100
[2018-04-22 10:12] LABS: MEAN CORPUSCULAR VOLUME 96 fl (80-97)
[2018-04-22] MEDS: METOPROLOL SUCCINATE 50 MG TAB.SR.24H PO SCH (10:45)
[2018-04-22] MEDS: FAMOTIDINE INJ/PF 20 MG/2 ML SDV IV SCH ×2 (10:45→22:40)
[2018-04-22] MEDS: APIXABAN 2.5 MG TABLET PO SCH ×2 (10:46→22:39)
[2018-04-22] MEDS: FUROSEMIDE 40 MG TABLET PO SCH (10:46)
[2018-04-22] MEDS: LORATADINE 10 MG TABLET PO SCH (10:46)
--- NOTE | 2018-04-22 10:46 | PDOC PROGRESS REPORT ---
Subjective Progress Note for:: 04/22/18 Subjective:: Is currently doing fair Patient's white count is also coming down Patient's denied any chest pain denied any shortness of the breath Family on a bedside Reason For Visit: URINARY TRACT INFECTION,CELLULITIS,SEPSIS,FEVER, Physical Exam Vital Signs: Temp Pulse Resp BP Pulse Ox 99.1 F 81 18 113/58 L 99 04/22/18 07:28 04/22/18 07:28 04/22/18 07:28 04/22/18 07:28 04/22/18 07:28 Intake & Output 04/21/18 04/22/18 04/23/18 06:59 06:59 06:59 Intake Total 770 Balance 770 Weight 79.6 kg General appearance: PRESENT: no acute distress, well-developed, well-nourished Head exam: PRESENT: atraumatic, normocephalic Eye exam: PRESENT: conjunctiva pink, EOMI, PERRLA. ABSENT: scleral icterus Ear exam: PRESENT: normal external ear exam Mouth exam: PRESENT: moist, tongue midline Neck exam: PRESENT: full ROM. ABSENT: carotid bruit, JVD, lymphadenopathy, thyromegaly Respiratory exam: PRESENT: decreased breath sounds Cardiovascular exam: PRESENT: RRR. ABSENT: diastolic murmur, rubs, systolic murmur Pulses: PRESENT: normal dorsalis pedis pul, +2 pedal pulses bilateral Vascular exam: PRESENT: normal capillary refill GI/Abdominal exam: PRESENT: normal bowel sounds, soft. ABSENT: distended, guarding, mass, organolmegaly, rebound, tenderness Rectal exam: PRESENT: deferred Additional comments: Left upper extremity some redness is present Neurological exam: PRESENT: alert, awake, oriented to person. ABSENT: motor sensory deficit Psychiatric exam: PRESENT: appropriate affect, normal mood. ABSENT: homicidal ideation, suicidal ideation Skin exam: PRESENT: dry, intact, warm. ABSENT: cyanosis, rash Results Laboratory Results: 04/22/18 09:23 04/22/18 09:23 04/21/18 04/22/18 04/22/18 22:00 09:23 09:23 WBC 20.6 H RBC 3.71 L Hgb 12.0 Hct 35.6 L MCV 96 D MCH 32.3 MCHC 33.7 RDW 14.7 H Plt Count 216 Seg Neutrophils % Not Reportable Lymphocytes % Not Reportable Monocytes % Not Reportable Eosinophils % Not Reportable Basophils % Not Reportable Absolute Neutrophils Not Reportable Absolute Lymphocytes Not Reportable Absolute Monocytes Not Reportable Absolute Eosinophils Not Reportable Absolute Basophils Not Reportable Sodium 140.1 Potassium 3.1 L D Chloride 107 Carbon Dioxide 19 L Anion Gap 14 BUN 13 Creatinine 0.54 Est GFR ( Amer) > 60 Est GFR (Non-Af Amer) > 60 Glucose 105 Lactic Acid 2.4 H Calcium 9.7 Total Bilirubin 0.3 AST 13 L ALT 25 Alkaline Phosphatase 69 Total Protein 6.5 Albumin 3.2 L Impressions: Chest X-Ray 04/21/18 13:39 IMPRESSION: Stable radiographic appearance of the chest 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 No evidence of acute cardiopulmonary abnormality. Assessment & Plan - Diagnosis (1) Altered mental status Qualifiers: Altered mental status type: unspecified Qualified Code(s): R41.82 - Altered mental status, unspecified Is this a current diagnosis for this admission?: Yes (2) Cellulitis Qualifiers: Site of cellulitis: extremity Site of cellulitis of extremity: lower extremity Laterality: left Qualified Code(s): L03.116 - Cellulitis of left lower limb Is this a current diagnosis for this admission?: Yes (3) Chronic atrial fibrillation Is this a current diagnosis for this admission?: Yes (4) Fever Qualifiers: Fever type: unspecified Qualified Code(s): R50.9 - Fever, unspecified Is this a current diagnosis for this admission?: Yes (5) Sacral decubitus ulcer, stage III Is this a current diagnosis for this admission?: Yes (6) Sepsis Qualifiers: Sepsis type: sepsis due to unspecified organism Qualified Code(s): A41.9 - Sepsis, unspecified organism Is this a current diagnosis for this admission?: Yes (7) UTI (urinary tract infection) Qualifiers: Urinary tract infection type: site unspecified Hematuria presence: with hematuria Qualified Code(s): N39.0 - Urinary tract infection, site not specified; R31.9 - Hematuria, unspecified; R31.9 - Hematuria, unspecified Is this a current diagnosis for this admission?: Yes (8) Dementia Qualifiers: Is this a current diagnosis for this admission?: Yes (9) Sepsis Is this a current diagnosis for this admission?: Yes (10) Thyroid mass Is this a current diagnosis for this admission?: Yes - Time Time Spent with patient: 15-24 minutes Medications reviewed and adjusted accordingly: Yes Anticipated discharge: Other Within: Other - Inpatient Certification Medical Necessity: Need Close Monitoring Due to Risk of Patient Decompensation, Need For IV Fluids, Need for IV Antibiotics Post Hospital Care: D/C Lactation Nurse Documentation - Plan Summary Plan Summary: Continues with broad-spectrum IV antibiotic Will get the CT of the chest today Will wait for the surgical consults for this decubitus ulcers Replace the potassium Discussed with the daughter and the bedside
[2018-04-22] MEDS: CEFEPIME 2 GM/D5W RTU 2 GM/50 ML RTUPB IV SCH ×2 (10:47→22:40)
[2018-04-22] MEDS ORDERED: POTASSIUM CHLORIDE 10 MEQ CAPSULE.ER PO ONE (11:00)
[2018-04-22] MEDS ORDERED: ZINC OXIDE 20% OINTMENT 28.35 GM TP PRN (11:28)
[2018-04-22] MEDS: NYSTATIN CREAM 15 GM TP SCH (12:37)
[2018-04-22] MEDS: TRAMADOL HCL 50 MG TABLET PO PRN ×2 (12:38→23:04)
[2018-04-22] MEDS: ACETAMINOPHEN 325 MG TABLET PO PRN (12:38)
--- NOTE | 2018-04-22 14:13 | RADIOLOGY REPORT (SQ) ---
EXAM DESCRIPTION: CT CHEST WITHOUT COMPLETED DATE/TIME: 04/22/2018 1:00 pm REASON FOR STUDY: sepsis COMPARISON: 02/27/2017 TECHNIQUE: CT scan performed of the chest without intravenous contrast. Images reviewed with lung, soft tissue and bone windows. Reconstructed coronal and sagittal MPR images reviewed. All images st ored on PACS. All CT scanners at this facility use dose modulation, iterative reconstruction, and/or weight based d osing when appropriate to reduce radiation dose to as low as reasonably achievable (ALARA). [facility]: Dose Right [facility]: CareDose [facility]: Dose Right [facility]: Teradose 4D [facility]: [employer] RADIATION DOSE: CT Rad equipment meets quality standard of care and radiation dose reduction techniq ues were employed. CTDIvol: 16.6 mGy. DLP: 615 mGy-cm. mGy. LIMITATIONS: Positioning. FINDINGS: LUNGS AND PLEURA: Subsegmental dependent airspace disease left lower lobe most likely atel ectasis. No effusions. HILAR AND MEDIASTINAL STRUCTURES: No identified masses or abnormal nodes. No obvious aneurysm. HEART AND VASCULAR STRUCTURES: No aneurysm. No pericardial effusion. UPPER ABDOMEN: No significant findings. Limited exam. THYROID AND OTHER SOFT TISSUES: Unchanged substernal right thyroid nodule. BONES: No acute findings HARDWARE: None in the chest. OTHER: No other significant findings. IMPRESSION: Atelectasis. No infiltrate. TECHNICAL DOCUMENTATION: JOB ID: [id number] Quality ID # [id number]: Final reports with documentation of one or more dose reduction techniques (e.g., Au tomated exposure control, adjustment of the mA and/or kV according to patient size, use of iterative reconstruction technique) 2010 [employer]- All Rights Reserved Reading location - IP/workstation name: [email or web address]
[2018-04-22] MEDS ORDERED: VANCOMYCIN HCL 1,000 MG in DEXTROSE 5%-WATER 250 ML IV SCH (15:00)
[2018-04-22] MEDS: ZINC OXIDE 20% OINTMENT 28.35 GM TP PRN (15:40)
[2018-04-22] MEDS: NORMAL SALINE 1000 ML 1,000 ML IV PRN (15:46)
[2018-04-22] MEDS ORDERED: LIDOCAINE 1% INJ-PF (10 MG/ML) 30 ML SDV ONE (19:55)
--- NOTE | 2018-04-22 21:44 | RADIOLOGY REPORT (SQ) ---
EXAM DESCRIPTION: CHEST SINGLE VIEW COMPLETED DATE/TIME: 04/22/2018 8:39 pm REASON FOR STUDY: central line placement COMPARISON: Chest x-ray 04/21/2018. CT chest 04/22/2018. EXAM PARAMETERS: NUMBER OF VIEWS: One view. TECHNIQUE: Single frontal radiographic view of the chest acquired. RADIATION DOSE: NA LIMITATIONS: None. FINDINGS: LUNGS AND PLEURA: Mild atelectasis noted at the left lung base. Soft tissue density at th e right upper hemithorax is probably corresponding to the enlarged right lower lobe of the thyroid gl and. No sizable pleural effusion or pneumothorax. MEDIASTINUM AND HILAR STRUCTURES: No masses. Contour normal. HEART AND VASCULAR STRUCTURES: Heart normal in size. Normal vasculature. BONES: No acute findings. HARDWARE: Left-sided central line with the tip overlying the region of the SVC. Surgical clips are n oted at the soft tissues at the left lower chest. IMPRESSION: 1. No pneumothorax status post central line placement. Mild left basilar atelectasis. 2. Enlarged right lower lobe of the thyroid gland. TECHNICAL DOCUMENTATION: JOB ID: [id number] [place]-64 2010 [employer]- All Rights Reserved Reading location - IP/workstation name: [email or web address]
--- NOTE | 2018-04-22 21:56 | PDOC CONSULTATION ---
Consultation Consult Date: 04/22/18 Consult reason:: Sacral decubitus ulcer History of Present Illness Admission Date/PCP: 04/21/18 15:39 KEVIN BRANNON MD Patient complains of: patient has dementia History of Present Illness: MAGDALENO NAVAS is a 83 year old female who is bedridden with dementia admitted for sepsis. History of UTI a month ago. Hx of A Fib. Patient is being seen for sacral Decub. Past Medical History Cardiac Medical History: Reports: Atrial Fibrillation, Congestive Heart Failure , Hypertension GI Medical History: Reports: Hiatal Hernia Musculoskeltal Medical History: Reports: Arthritis Psychiatric Medical History: Reports: Dementia Past Surgical History Past Surgical History: Reports: Section - x2 Denies: Mastectomy, Pacemaker Social History Lives with: Family Smoking Status: Never Smoker Frequency of Alcohol Use: None Hx Recreational Drug Use: No Drugs: None Hx Prescription Drug Abuse: No Family History Family History: Reviewed & Not Pertinent Parental Family History Reviewed: Yes Children Family History Reviewed: No Sibling(s) Family History Reviewed.: No Medication/Allergy Home Medications: Alprazolam [Xanax 0.5 mg Tablet] 0.5 mg PO BIDP PRN 09/23/17 Apixaban [Eliquis 2.5 mg Tablet] 2.5 mg PO BID 09/23/17 Megestrol Acetate 40 mg PO BID 09/23/17 Metoprolol Succinate [Toprol Xl 50 mg Tab.sr] 50 mg PO DAILY 09/23/17 Mirtazapine [Remeron] 30 mg PO QHS 09/23/17 Montelukast Sodium [Singulair 10 mg Tablet] 10 mg PO QHS 09/23/17 Tramadol HCl/Acetaminophen [Tramadol-Acetaminophn 37.5-325] 1 tab PO Q6HP PRN Dexlansoprazole [Dexilant 30 mg Capsule] 30 mg PO DAILYP PRN 04/21/18 Diclofenac Sodium [Voltaren] 4 gm TP TIDP PRN 04/21/18 Donepezil HCl [Aricept] 10 mg PO QHS 04/21/18 Furosemide [Lasix 40 mg Tablet] 40 mg PO QAM 04/21/18 Loratadine [Claritin 10 mg Tablet] 10 mg PO DAILY 04/21/18 Nystatin [Mycostatin Topical Powder 15 gm] 1 applic TP DAILY 04/21/18 Allergies/Adverse Reactions: No Known Allergies Allergy (Verified 09/23/17 03:26) Review of Systems ROS unobtainable: Due to mental status Physical Exam Vital Signs: Temp Pulse Resp BP Pulse Ox 97.9 F 80 16 136/62 H 98 04/22/18 11:23 04/22/18 14:00 04/22/18 11:53 04/22/18 11:23 04/22/18 11:53 Intake & Output 04/21/18 04/22/18 04/23/18 06:59 06:59 06:59 Intake Total 770 1660 Output Total 700 Balance 770 960 Weight 79.6 kg General appearance: PRESENT: no acute distress Head exam: PRESENT: atraumatic Eye exam: PRESENT: conjunctiva pink Mouth exam: PRESENT: moist Neck exam: PRESENT: other - trachea midline Respiratory exam: PRESENT: clear to auscultation danitza Cardiovascular exam: PRESENT: RRR Pulses: PRESENT: normal carotid pulses, normal radial pulses Vascular exam: PRESENT: normal capillary refill GI/Abdominal exam: PRESENT: soft Rectal exam: PRESENT: deferred, other - Has a area that is erythematous on the right sacral area with several small suderficial ulcers. Smaller area of erythema on the right side. No obvious collection and no need for debridement at this time Results Laboratory Results: 04/22/18 09:23 04/22/18 09:23 04/21/18 04/22/18 04/22/18 22:00 09:23 09:23 WBC 20.6 H RBC 3.71 L Hgb 12.0 Hct 35.6 L MCV 96 D MCH 32.3 MCHC 33.7 RDW 14.7 H Plt Count 216 Seg Neutrophils % Not Reportable Lymphocytes % Not Reportable Monocytes % Not Reportable Eosinophils % Not Reportable Basophils % Not Reportable Absolute Neutrophils Not Reportable Absolute Lymphocytes Not Reportable Absolute Monocytes Not Reportable Absolute Eosinophils Not Reportable Absolute Basophils Not Reportable Sodium 140.1 Potassium 3.1 L D Chloride 107 Carbon Dioxide 19 L Anion Gap 14 BUN 13 Creatinine 0.54 Est GFR ( Amer) > 60 Est GFR (Non-Af Amer) > 60 Glucose 105 Lactic Acid 2.4 H Calcium 9.7 Total Bilirubin 0.3 AST 13 L ALT 25 Alkaline Phosphatase 69 Total Protein 6.5 Albumin 3.2 L Impressions: Chest CT 04/22/18 00:00 IMPRESSION: Atelectasis. No infiltrate. Chest X-Ray 04/22/18 00:00 IMPRESSION: 1. No pneumothorax status post central line placement. Mild left basilar atelectasis. 2. Enlarged right lower lobe of the thyroid gland. Assessment & Plan - Diagnosis (1) Sacral decubitus ulcer, stage III Is this a current diagnosis for this admission?: Yes - Time Time Spent: 30 to 50 Minutes - Plan Summary Plan Summary: Start Allevyn dressings over sacral decubitus Spoke to daughter at bedside about need to turn to sides to avoid pressure on sacral area Will follow PRn
[2018-04-22] MEDS: MONTELUKAST SODIUM 10 MG TABLET PO SCH (22:39)
[2018-04-22] MEDS: DONEPEZIL HCL 5 MG TABLET PO SCH (22:40)
[2018-04-22] MEDS: MIRTAZAPINE 15 MG TABLET PO SCH (22:40)
[2018-04-23 06:12] LABS: ABSOLUTE BASOPHILS # (AUTO) 0.1 10^3/uL (0.0-0.2); ABSOLUTE EOSINOPHILS # (AUTO) 0.1 10^3/uL (0.0-0.6); ABSOLUTE LYMPHOCYTES (AUTO) 2.4 10^3/uL (0.5-4.7); ABSOLUTE MONOCYTES (AUTO) 0.8 10^3/uL (0.1-1.4); ABSOLUTE NEUT (AUTO) 15.2 10^3/uL (1.7-8.2); BASOPHILS % (AUTO) 0.6 % (0-2); EOSINOPHILS % (AUTO) 0.6 % (0-6); HEMATOCRIT 32.6 % (36.0-47.0); HEMOGLOBIN 10.8 g/dL (12.0-15.5); LYMPHOCYTES % (AUTO) 13.1 % (13-45); MEAN CORPUSCULAR HEMOGLOBIN 32.2 pg (27.0-33.4); MEAN CORPUSCULAR HGB CONC 33.2 g/dL (32.0-36.0); MEAN CORPUSCULAR VOLUME 97 fl (80-97); MONOCYTES % (AUTO) 4.5 % (3-13); PLATELET COUNT 237 10^3/uL (150-450); RED BLOOD COUNT 3.36 10^6/uL (3.72-5.28); RED CELL DISTRIBUTION WIDTH 14.9 % (11.5-14.0); SEGMENTED NEUTROPHILS % (AUTO) 81.2 % (42-78); TOTAL CELLS COUNTED % (AUTO) 100 %; WHITE BLOOD COUNT 18.6 10^3/uL (4.0-10.5)
--- NOTE | 2018-04-23 08:21 | OPERATIVE REPORT E ---
Operative Report NAME: MAGDALENO NAVAS : 1935 AGE: 83Y DATE OF SURGERY: 04/22/2018 ROOM: 314 PREOPERATIVE DIAGNOSIS: Poor veins for IV access. POSTOPERATIVE DIAGNOSIS: Poor veins for IV access. PROCEDURE: Placement of left subclavian vein triple-lumen catheter. SURGEON: KIRK CUTLER M.D. ANESTHESIA: Local. INDICATIONS: This is an 83-year-old female who has poor veins in peripheral arms. The left arm is also contracted and nurse is not able to get a good peripheral vein for access. DESCRIPTION OF PROCEDURE: Patient was placed in Trendelenburg position and the left chest and neck were then prepped and draped in the usual sterile fashion. Patient's neck also contracted to the right and, therefore, I decided to put it in the left side. The local anesthesia was then infiltrated over the left infraclavicular area and the left subclavian vein punctured and guidewire passed through the needle towards the area of the superior vena cava. The needle was removed and the puncture site dilated and a triple-lumen catheter inserted through the guidewire to a distance of about 17 cm. All the 3 ports aspirated blood easily and instilled saline easily. The catheter was then anchored to the skin with 3-0 silk. Biopatch was placed over the insertion site and a transparent dressing placed over the Biopatch and catheter. The patient tolerated the procedure well. Chest x-ray will be obtained for placement and to rule out any pneumothorax. DICTATING PHYSICIAN: KIRK CUTLER M.D. [id number] PHY#: [id number] 2014 ID: [id number] JOB#: [id number] ACCT: [id number] cc:KIRK CUTLER M.D. >
[2018-04-23 09:01] LABS: ANION GAP 12 (5-19); BLOOD UREA NITROGEN 13 mg/dL (7-20); CARBON DIOXIDE 23 mmol/L (22-30); CHLORIDE 106 mmol/L (98-107); GLUCOSE 87 mg/dL (75-110); POTASSIUM 3.4 mmol/L (3.6-5.0); SODIUM 140.9 mmol/L (137-145)
[2018-04-23] MEDS: APIXABAN 2.5 MG TABLET PO SCH ×2 (09:40→21:35)
[2018-04-23] MEDS: MEGESTROL ACETATE 20 MG TABLET PO SCH (09:40)
[2018-04-23] MEDS: FUROSEMIDE 40 MG TABLET PO SCH (09:40)
[2018-04-23] MEDS: CEFEPIME 2 GM/D5W RTU 2 GM/50 ML RTUPB IV SCH ×2 (09:40→23:26)
[2018-04-23] MEDS: LORATADINE 10 MG TABLET PO SCH (09:40)
[2018-04-23] MEDS: ZINC OXIDE 20% OINTMENT 28.35 GM TP PRN (09:41)
[2018-04-23] MEDS: FAMOTIDINE INJ/PF 20 MG/2 ML SDV IV SCH (09:41)
[2018-04-23] MEDS: NYSTATIN CREAM 15 GM TP SCH (09:41)
[2018-04-23] MEDS: METOPROLOL SUCCINATE 50 MG TAB.SR.24H PO SCH (09:42)
[2018-04-23] MEDS: TRAMADOL HCL 50 MG TABLET PO PRN ×2 (09:49→22:50)
[2018-04-23] MEDS: ACETAMINOPHEN 325 MG TABLET PO PRN ×2 (09:53→22:50)
[2018-04-23] MEDS: VANCOMYCIN HCL 1,000 MG in DEXTROSE 5%-WATER 250 ML IV SCH ×2 (10:56→21:35)
--- NOTE | 2018-04-23 13:16 | HISTORY AND PHYSICAL E ---
History and Physical NAME: MAGDALENO NAVAS : 1935 AGE: 83Y ADMITTED: 04/21/2018 ROOM: 314 CHIEF COMPLAINT: Difficulty with with significant history of dementia, atrial fibrillation, hypertension, hyperthyroidism, chronic urinary tract infection. HISTORY OF PRESENT ILLNESS: Presents EMS from home with daughter because the patient was shaking and shortness of breath history brought in by daughter because of the patient's dementia. She stated that she was eating breakfast of archibald and grapes, and she suddenly began moderately shaking. She said that this lasted for up to 10 minutes. As a result, patient did not lose any consciousness. Patient does not believe this is a seizure activity. Apparently, reported the patient has otherwise denied any other symptoms. Patient was treated for urinary tract infections one month ago with Macrobid. Patient has a significant history of the sacral decubitus ulcer and patient was treated with the home health nurses currently. When I saw the patient on the floor, the patient is alert, awake, yelling because of most likely the pain. Patient had significant sacral excoriation, ulcers, and even the left lower extremities redness is present some. Patient at this point received IV vancomycin and cefepime dose and discussed with the daughter admitting in the hospital for further evaluation and treatment. PAST MEDICAL HISTORY: 1. History of atrial fibrillation. 2. History of hypertension. 3. History of hiatal hernia. 4. History of . 5. History of dementia. PAST SURGICAL HISTORY: History of . SOCIAL HISTORY: Former smoker, currently not. Alcohol none. FAMILY HISTORY: Not pertinent. CURRENT MEDICATIONS: 1. Alprazolam p.r.n. 2. Apixaban 2.5 mg b.i.d. for AFib. 3. 10 mg daily. 4. Aricept 10 mg daily. 5. Megace daily. 6. mg p.o. daily. 7. Remeron 30 mg daily. 8. Singulair daily. 9. p.r.n. ALLERGIES: No known drug allergies. REVIEW OF SYSTEMS: As above, all other pertinent systems negative. PHYSICAL EXAMINATION: VITAL SIGNS: Temperature is 100.8, blood pressure was 133/64, respiratory rate 18, O2 is 94% on room air. GENERAL: The patient is alert, awake, significant underlying dementia, in no acute distress. HEAD AND NECK: Normocephalic. PERRL. LUNGS: No wheezing. No rales. No rhonchi. HEART: S1 and S2 are present. ABDOMEN: Soft, nontender. No guarding. GENITOURINARY: Sacral decubitus ulcer with excoriations in left lower extremity. . NEUROLOGIC: Patient moves all 4 extremities. Alert, awake. Significant dementia. LABORATORY: WBC IS 21.7, hemoglobin is 12.7, platelet count is 200. Patient's chemistry: Sodium is 146, potassium 4.2, BUN is 14, creatinine is 0.49. Lactic acid is 3.6. The patient's cardiac enzymes x1 is negative. NT-BNP was 151. Lipase is 92.3. Patient's chest x-ray is stable. There is a hernia mass . Patient's EKG no acute changes. Patient's urine is leukocyte, nitrites. ASSESSMENT AND PLAN: 1. SEPTICEMIA DUE TO THE UNDERLYING URINARY TRACT INFECTION WITH SIGNIFICANT DECUBITUS ULCER. 2. CELLULITIS OF THE LEFT LOWER EXTREMITY, UPPER THIGH CELLULITIS. 3. FEVER DUE TO THE ABOVE CONDITIONS. 4. SIGNIFICANT DEMENTIA. 5. HYPERTENSION. 6. HIATAL HERNIA. 7. CHRONIC ATRIAL FIBRILLATION WITH CHRONIC CONGESTIVE HEART FAILURE. PLAN: Admit the patient in IMCU. Start the patient on IV fluid. Start the patient on IV vancomycin and cefepime antibiotics. Get the blood culture, urine culture, for the sacral decubitus wounds, and will get a CT of the chest without contrast. Patient's case discussed with the daughter in the patient's room. Given the patient's current condition, patient currently a FULL CODE. Overall prognosis is poor. TIME SPENT: More than 35 minutes spent planning the patient's hospital course. DICTATING PHYSICIAN: GENARO CAPPS M.D. [id number] PHY#: [id number] 1958 ID: [id number] JOB#: [id number] ACCT: [id number] cc:KEVIN BRANNON M.D. >
[2018-04-23] MEDS ORDERED: POTASSIUM CHLORIDE 20 MEQ/15 ML UDCUP PO ONE (18:30)
--- NOTE | 2018-04-23 21:27 | PDOC PROGRESS REPORT ---
Subjective Progress Note for:: 04/23/18 Subjective:: Patient with dementia, admitted for the management of sepsis due to severe cellulitis of left leg, sacral decubiti ,UTI Reason For Visit: URINARY TRACT INFECTION,CELLULITIS,SEPSIS,FEVER, Physical Exam Vital Signs: Temp Pulse Resp BP Pulse Ox 98.0 F 69 15 127/57 H 98 04/23/18 19:31 04/23/18 19:31 04/23/18 19:31 04/23/18 19:31 04/23/18 19:31 Intake & Output 04/22/18 04/23/18 04/24/18 06:59 06:59 06:59 Intake Total 770 1660 917 Output Total 1350 700 Balance 770 310 217 Weight 79.6 kg 82 kg Eye exam: PRESENT: PERRLA Respiratory exam: PRESENT: clear to auscultation danitza Cardiovascular exam: PRESENT: +S1, +S2 GI/Abdominal exam: PRESENT: soft Neurological exam: PRESENT: alert Results Laboratory Results: 04/23/18 05:45 04/23/18 06:40 04/23/18 04/23/18 04/23/18 05:45 05:45 06:40 WBC 18.6 H RBC 3.36 L Hgb 10.8 L Hct 32.6 L MCV 97 MCH 32.2 MCHC 33.2 RDW 14.9 H Plt Count 237 Seg Neutrophils % 81.2 H Lymphocytes % 13.1 Monocytes % 4.5 Eosinophils % 0.6 Basophils % 0.6 Absolute Neutrophils 15.2 H Absolute Lymphocytes 2.4 Absolute Monocytes 0.8 Absolute Eosinophils 0.1 Absolute Basophils 0.1 Sodium Cancelled 140.9 Potassium Cancelled 3.4 L Chloride Cancelled 106 Carbon Dioxide Cancelled 23 Anion Gap Cancelled 12 BUN Cancelled 13 Creatinine Cancelled 0.56 Est GFR ( Amer) Cancelled > 60 Est GFR (Non-Af Amer) Cancelled > 60 Glucose Cancelled 87 Calcium Cancelled 10.0 Impressions: Chest CT 04/22/18 00:00 IMPRESSION: Atelectasis. No infiltrate. Chest X-Ray 04/22/18 00:00 IMPRESSION: 1. No pneumothorax status post central line placement. Mild left basilar atelectasis. 2. Enlarged right lower lobe of the thyroid gland. Assessment & Plan - Diagnosis (1) Sepsis Qualifiers: Sepsis type: sepsis due to unspecified organism Qualified Code(s): A41.9 - Sepsis, unspecified organism Is this a current diagnosis for this admission?: Yes (2) Cellulitis of left leg Is this a current diagnosis for this admission?: Yes - Plan Summary Plan Summary: Continue IV antibiotic
[2018-04-23] MEDS: DONEPEZIL HCL 5 MG TABLET PO SCH (21:35)
[2018-04-23] MEDS: MONTELUKAST SODIUM 10 MG TABLET PO SCH (21:35)
[2018-04-23] MEDS: FAMOTIDINE 20 MG TABLET PO SCH (21:35)
[2018-04-23] MEDS: MIRTAZAPINE 15 MG TABLET PO SCH (21:35)
[2018-04-23] MEDS ORDERED: POTASSIUM CHLORIDE 20 MEQ/15 ML UDCUP ONE ×2 (21:51→21:53)
[2018-04-24] MEDS: ACETAMINOPHEN 325 MG TABLET PO PRN ×3 (02:21→21:47)
[2018-04-24 05:45] LABS: ABSOLUTE BASOPHILS # (AUTO) 0.1 10^3/uL (0.0-0.2); ABSOLUTE EOSINOPHILS # (AUTO) 0.1 10^3/uL (0.0-0.6); ABSOLUTE LYMPHOCYTES (AUTO) 2.4 10^3/uL (0.5-4.7); ABSOLUTE MONOCYTES (AUTO) 0.7 10^3/uL (0.1-1.4); BASOPHILS % (AUTO) 0.5 % (0-2); EOSINOPHILS % (AUTO) 0.9 % (0-6); HEMATOCRIT 32.1 % (36.0-47.0); HEMOGLOBIN 10.9 g/dL (12.0-15.5); LYMPHOCYTES % (AUTO) 17.7 % (13-45); MEAN CORPUSCULAR HEMOGLOBIN 32.6 pg (27.0-33.4); MEAN CORPUSCULAR VOLUME 96 fl (80-97); MONOCYTES % (AUTO) 5.6 % (3-13); PLATELET COUNT 255 10^3/uL (150-450); RED BLOOD COUNT 3.34 10^6/uL (3.72-5.28); RED CELL DISTRIBUTION WIDTH 14.5 % (11.5-14.0); SEGMENTED NEUTROPHILS % (AUTO) 75.3 % (42-78); TOTAL CELLS COUNTED % (AUTO) 100 %; WHITE BLOOD COUNT 13.3 10^3/uL (4.0-10.5)
[2018-04-24 05:53] LABS: ANION GAP 12 (5-19); BLOOD UREA NITROGEN 13 mg/dL (7-20); CALCIUM 9.9 mg/dL (8.4-10.2); CARBON DIOXIDE 24 mmol/L (22-30); CHLORIDE 106 mmol/L (98-107); GLUCOSE 95 mg/dL (75-110); POTASSIUM 4.1 mmol/L (3.6-5.0); SODIUM 141.9 mmol/L (137-145)
[2018-04-24] MEDS: FUROSEMIDE 40 MG TABLET PO SCH (09:44)
[2018-04-24] MEDS: LORATADINE 10 MG TABLET PO SCH (09:44)
[2018-04-24] MEDS: CEFEPIME 2 GM/D5W RTU 2 GM/50 ML RTUPB IV SCH ×2 (09:45→23:28)
[2018-04-24] MEDS: APIXABAN 2.5 MG TABLET PO SCH ×2 (09:45→21:44)
[2018-04-24] MEDS: NYSTATIN CREAM 15 GM TP SCH (09:45)
[2018-04-24] MEDS: MEGESTROL ACETATE 20 MG TABLET PO SCH ×2 (09:45→21:43)
[2018-04-24] MEDS: FAMOTIDINE 20 MG TABLET PO SCH ×2 (09:46→21:44)
[2018-04-24] MEDS: METOPROLOL SUCCINATE 50 MG TAB.SR.24H PO SCH (09:46)
[2018-04-24] MEDS: TRAMADOL HCL 50 MG TABLET PO PRN ×2 (09:54→21:48)
[2018-04-24 10:44] LABS: VANCOMYCIN,TROUGH 14.9 ug/mL (5.0-20.0)
[2018-04-24] MEDS: VANCOMYCIN HCL 1,000 MG in DEXTROSE 5%-WATER 250 ML IV SCH ×2 (10:56→21:44)
[2018-04-24] MEDS ORDERED: MEGESTROL ACETATE 20 MG TABLET PO SCH (18:00)
--- NOTE | 2018-04-24 20:34 | PDOC PROGRESS REPORT ---
Subjective Progress Note for:: 04/24/18 Subjective:: Patient is seen by the bedside, she is improving on present treatment Reason For Visit: URINARY TRACT INFECTION,CELLULITIS,SEPSIS,FEVER, Physical Exam Vital Signs: Temp Pulse Resp BP Pulse Ox 98.4 F 80 15 127/61 H 99 04/24/18 19:50 04/24/18 19:50 04/24/18 19:50 04/24/18 19:50 04/24/18 19:50 Intake & Output 04/23/18 04/24/18 04/25/18 06:59 06:59 06:59 Intake Total 1660 2364 1061 Output Total 1350 1650 900 Balance 310 714 161 Weight 82 kg 81.3 kg General appearance: PRESENT: no acute distress Eye exam: PRESENT: PERRLA. ABSENT: scleral icterus Neck exam: PRESENT: full ROM Respiratory exam: PRESENT: clear to auscultation danitza Cardiovascular exam: PRESENT: RRR, +S1, +S2 Vascular exam: PRESENT: normal capillary refill GI/Abdominal exam: PRESENT: normal bowel sounds, soft Neurological exam: PRESENT: alert Psychiatric exam: PRESENT: appropriate affect, normal mood Skin exam: PRESENT: dry, intact, warm Results Laboratory Results: 04/24/18 05:00 04/24/18 05:00 04/24/18 04/24/18 05:00 05:00 WBC 13.3 H RBC 3.34 L Hgb 10.9 L Hct 32.1 L MCV 96 MCH 32.6 MCHC 34.0 RDW 14.5 H Plt Count 255 Seg Neutrophils % 75.3 Lymphocytes % 17.7 Monocytes % 5.6 Eosinophils % 0.9 Basophils % 0.5 Absolute Neutrophils 10.0 H Absolute Lymphocytes 2.4 Absolute Monocytes 0.7 Absolute Eosinophils 0.1 Absolute Basophils 0.1 Sodium 141.9 Potassium 4.1 Chloride 106 Carbon Dioxide 24 Anion Gap 12 BUN 13 Creatinine 0.57 Est GFR ( Amer) > 60 Est GFR (Non-Af Amer) > 60 Glucose 95 Calcium 9.9 04/22/18 01:55 Buttocks - Rash Gram Stain - Final 04/22/18 01:55 Buttocks - Rash Wound Culture - Final Enterococcus Faecalis(Group D) Pseudomonas Aeruginosa Staphylococcus Aureus Impressions: Chest CT 04/22/18 00:00 IMPRESSION: Atelectasis. No infiltrate. Chest X-Ray 04/22/18 00:00 IMPRESSION: 1. No pneumothorax status post central line placement. Mild left basilar atelectasis. 2. Enlarged right lower lobe of the thyroid gland. Assessment & Plan - Diagnosis (1) Sepsis Qualifiers: Sepsis type: sepsis due to unspecified organism Qualified Code(s): A41.9 - Sepsis, unspecified organism Is this a current diagnosis for this admission?: Yes (2) Cellulitis of left leg Is this a current diagnosis for this admission?: Yes
[2018-04-24] MEDS: DONEPEZIL HCL 5 MG TABLET PO SCH (21:42)
[2018-04-24] MEDS: MIRTAZAPINE 15 MG TABLET PO SCH (21:43)
[2018-04-24] MEDS: MONTELUKAST SODIUM 10 MG TABLET PO SCH (21:43)
[2018-04-25 05:56] LABS: ANION GAP 12 (5-19); BLOOD UREA NITROGEN 17 mg/dL (7-20); CALCIUM 9.9 mg/dL (8.4-10.2); CARBON DIOXIDE 26 mmol/L (22-30); CHLORIDE 103 mmol/L (98-107); GLUCOSE 94 mg/dL (75-110); POTASSIUM 3.5 mmol/L (3.6-5.0); SODIUM 140.9 mmol/L (137-145)
[2018-04-25] MEDS: LORATADINE 10 MG TABLET PO SCH (09:55)
[2018-04-25] MEDS: APIXABAN 2.5 MG TABLET PO SCH ×2 (09:55→21:03)
[2018-04-25] MEDS: MEGESTROL ACETATE 20 MG TABLET PO SCH ×2 (09:55→21:04)
[2018-04-25] MEDS: CEFEPIME 2 GM/D5W RTU 2 GM/50 ML RTUPB IV SCH ×2 (09:55→21:03)
[2018-04-25] MEDS: FUROSEMIDE 40 MG TABLET PO SCH (09:55)
[2018-04-25] MEDS: ZINC OXIDE 20% OINTMENT 28.35 GM TP PRN (09:56)
[2018-04-25] MEDS: NYSTATIN CREAM 15 GM TP SCH (09:56)
[2018-04-25] MEDS: TRAMADOL HCL 50 MG TABLET PO PRN ×2 (09:56→21:12)
[2018-04-25] MEDS: METOPROLOL SUCCINATE 50 MG TAB.SR.24H PO SCH (09:56)
[2018-04-25] MEDS: FAMOTIDINE 20 MG TABLET PO SCH ×2 (09:56→21:03)
[2018-04-25] MEDS: ACETAMINOPHEN 325 MG TABLET PO PRN (09:56)
[2018-04-25] MEDS: VANCOMYCIN HCL 1,000 MG in DEXTROSE 5%-WATER 250 ML IV SCH ×2 (11:12→21:03)
[2018-04-25] MEDS ORDERED: POTASSIUM CHLORIDE 20 MEQ/15 ML UDCUP PO ONE (15:00)
[2018-04-25] MEDS ORDERED: POTASSIUM CHLORIDE 20 MEQ/15 ML UDCUP ONE (15:25)
[2018-04-25 16:01] LABS: ABSOLUTE EOSINOPHILS # (AUTO) 0.4 10^3/uL (0.0-0.6); ABSOLUTE LYMPHOCYTES (AUTO) 4.3 10^3/uL (0.5-4.7); ABSOLUTE MONOCYTES (AUTO) 1.1 10^3/uL (0.1-1.4); ABSOLUTE NEUT (AUTO) 5.8 10^3/uL (1.7-8.2); BASOPHILS % (AUTO) 0.2 % (0-2); EOSINOPHILS % (AUTO) 3.1 % (0-6); HEMOGLOBIN 12.1 g/dL (12.0-15.5); LYMPHOCYTES % (AUTO) 37.4 % (13-45); MEAN CORPUSCULAR HEMOGLOBIN 32.2 pg (27.0-33.4); MEAN CORPUSCULAR HGB CONC 33.5 g/dL (32.0-36.0); MEAN CORPUSCULAR VOLUME 96 fl (80-97); MONOCYTES % (AUTO) 9.3 % (3-13); PLATELET COUNT 309 10^3/uL (150-450); RED BLOOD COUNT 3.74 10^6/uL (3.72-5.28); RED CELL DISTRIBUTION WIDTH 14.6 % (11.5-14.0); TOTAL CELLS COUNTED % (AUTO) 100 %; WHITE BLOOD COUNT 11.6 10^3/uL (4.0-10.5)
[2018-04-25 16:22] LABS: ALANINE AMINOTRANSFERASE 48 U/L (9-52); ALBUMIN 3.7 g/dL (3.5-5.0); ALKALINE PHOSPHATASE 73 U/L (38-126); ANION GAP 13 (5-19); ASPARTATE AMINO TRANSFERASE 34 U/L (14-36); BILIRUBIN,DIRECT 0.3 mg/dL (0.0-0.4); BILIRUBIN,TOTAL 0.4 mg/dL (0.2-1.3); BLOOD UREA NITROGEN 14 mg/dL (7-20); CALCIUM 10.3 mg/dL (8.4-10.2); CARBON DIOXIDE 26 mmol/L (22-30); CHLORIDE 103 mmol/L (98-107); GLUCOSE 113 mg/dL (75-110); POTASSIUM 3.1 mmol/L (3.6-5.0); SODIUM 141.9 mmol/L (137-145); TOTAL PROTEIN 7.3 g/dL (6.3-8.2)
[2018-04-25] MEDS: MIRTAZAPINE 15 MG TABLET PO SCH (21:02)
[2018-04-25] MEDS: MONTELUKAST SODIUM 10 MG TABLET PO SCH (21:02)
[2018-04-25] MEDS: DONEPEZIL HCL 5 MG TABLET PO SCH (21:03)
[2018-04-26 06:38] LABS: ABSOLUTE BASOPHILS # (AUTO) 0.1 10^3/uL (0.0-0.2); ABSOLUTE EOSINOPHILS # (AUTO) 0.4 10^3/uL (0.0-0.6); ABSOLUTE LYMPHOCYTES (AUTO) 4.8 10^3/uL (0.5-4.7); ABSOLUTE MONOCYTES (AUTO) 1.2 10^3/uL (0.1-1.4); ABSOLUTE NEUT (AUTO) 5.5 10^3/uL (1.7-8.2); BASOPHILS % (AUTO) 0.9 % (0-2); EOSINOPHILS % (AUTO) 3.1 % (0-6); HEMOGLOBIN 11.6 g/dL (12.0-15.5); LYMPHOCYTES % (AUTO) 40.3 % (13-45); MEAN CORPUSCULAR HEMOGLOBIN 32.5 pg (27.0-33.4); MEAN CORPUSCULAR HGB CONC 34.1 g/dL (32.0-36.0); MEAN CORPUSCULAR VOLUME 95 fl (80-97); MONOCYTES % (AUTO) 10.1 % (3-13); PLATELET COUNT 307 10^3/uL (150-450); RED BLOOD COUNT 3.57 10^6/uL (3.72-5.28); RED CELL DISTRIBUTION WIDTH 14.3 % (11.5-14.0); SEGMENTED NEUTROPHILS % (AUTO) 45.6 % (42-78); TOTAL CELLS COUNTED % (AUTO) 100 %
[2018-04-26] MEDS: LORATADINE 10 MG TABLET PO SCH (10:09)
[2018-04-26] MEDS: CEFEPIME 2 GM/D5W RTU 2 GM/50 ML RTUPB IV SCH ×2 (10:09→21:09)
[2018-04-26] MEDS: METOPROLOL SUCCINATE 50 MG TAB.SR.24H PO SCH (10:09)
[2018-04-26] MEDS: APIXABAN 2.5 MG TABLET PO SCH ×2 (10:09→21:16)
[2018-04-26] MEDS: FAMOTIDINE 20 MG TABLET PO SCH ×2 (10:09→21:21)
[2018-04-26] MEDS: FUROSEMIDE 40 MG TABLET PO SCH (10:10)
[2018-04-26] MEDS: NYSTATIN CREAM 15 GM TP SCH (10:10)
[2018-04-26] MEDS: MEGESTROL ACETATE 20 MG TABLET PO SCH ×2 (10:10→21:22)
[2018-04-26] MEDS: TRAMADOL HCL 50 MG TABLET PO PRN ×2 (10:35→21:17)
[2018-04-26] MEDS: ACETAMINOPHEN 325 MG TABLET PO PRN (10:35)
[2018-04-26] MEDS: VANCOMYCIN HCL 1,000 MG in DEXTROSE 5%-WATER 250 ML IV SCH ×2 (11:46→21:22)
[2018-04-26 18:53] LABS: ALANINE AMINOTRANSFERASE 60 U/L (9-52); ALBUMIN 3.8 g/dL (3.5-5.0); ALKALINE PHOSPHATASE 77 U/L (38-126); ANION GAP 15 (5-19); ASPARTATE AMINO TRANSFERASE 39 U/L (14-36); BILIRUBIN,DIRECT 0.3 mg/dL (0.0-0.4); BILIRUBIN,TOTAL 0.5 mg/dL (0.2-1.3); BLOOD UREA NITROGEN 15 mg/dL (7-20); CALCIUM 10.7 mg/dL (8.4-10.2); CARBON DIOXIDE 25 mmol/L (22-30); CHLORIDE 100 mmol/L (98-107); GLUCOSE 95 mg/dL (75-110); POTASSIUM 3.6 mmol/L (3.6-5.0); SODIUM 140.4 mmol/L (137-145); TOTAL PROTEIN 7.6 g/dL (6.3-8.2)
--- NOTE | 2018-04-26 20:27 | PDOC PROGRESS REPORT ---
Subjective Progress Note for:: 04/26/18 Subjective:: Patient is seen by the bedside continues to improve Reason For Visit: URINARY TRACT INFECTION,CELLULITIS,SEPSIS,FEVER, Physical Exam Vital Signs: Temp Pulse Resp BP Pulse Ox 98.9 F 87 17 138/79 H 97 04/26/18 15:57 04/26/18 19:00 04/26/18 15:57 04/26/18 15:57 04/26/18 11:09 Intake & Output 04/25/18 04/26/18 04/27/18 06:59 06:59 06:59 Intake Total 1811 858 718 Output Total 0226 2625 1100 Balance 11 -1767 -382 Weight 80.9 kg 80 kg General appearance: PRESENT: no acute distress Eye exam: PRESENT: PERRLA Respiratory exam: PRESENT: clear to auscultation danitza Cardiovascular exam: PRESENT: +S1, +S2 GI/Abdominal exam: PRESENT: soft Results Laboratory Results: 04/26/18 05:36 04/26/18 18:14 04/26/18 04/26/18 05:36 18:14 WBC 12.0 H RBC 3.57 L Hgb 11.6 L Hct 34.0 L MCV 95 MCH 32.5 MCHC 34.1 RDW 14.3 H Plt Count 307 Seg Neutrophils % 45.6 Lymphocytes % 40.3 Monocytes % 10.1 Eosinophils % 3.1 Basophils % 0.9 Absolute Neutrophils 5.5 Absolute Lymphocytes 4.8 H Absolute Monocytes 1.2 Absolute Eosinophils 0.4 Absolute Basophils 0.1 Sodium 140.4 Potassium 3.6 Chloride 100 Carbon Dioxide 25 Anion Gap 15 BUN 15 Creatinine 0.60 Est GFR ( Amer) > 60 Est GFR (Non-Af Amer) > 60 Glucose 95 Calcium 10.7 H Total Bilirubin 0.5 AST 39 H ALT 60 H Alkaline Phosphatase 77 Total Protein 7.6 Albumin 3.8 Impressions: Chest CT 04/22/18 00:00 IMPRESSION: Atelectasis. No infiltrate. Chest X-Ray 04/22/18 00:00 IMPRESSION: 1. No pneumothorax status post central line placement. Mild left basilar atelectasis. 2. Enlarged right lower lobe of the thyroid gland. Assessment & Plan - Diagnosis (1) Sepsis Qualifiers: Sepsis type: sepsis due to unspecified organism Qualified Code(s): A41.9 - Sepsis, unspecified organism Is this a current diagnosis for this admission?: Yes (2) Cellulitis of left leg Is this a current diagnosis for this admission?: Yes
[2018-04-26] MEDS: MIRTAZAPINE 15 MG TABLET PO SCH (21:15)
[2018-04-26] MEDS: DONEPEZIL HCL 5 MG TABLET PO SCH (21:16)
[2018-04-26] MEDS: MONTELUKAST SODIUM 10 MG TABLET PO SCH (21:16)
[2018-04-27 06:25] LABS: ABSOLUTE BASOPHILS # (AUTO) 0.1 10^3/uL (0.0-0.2); ABSOLUTE EOSINOPHILS # (AUTO) 0.3 10^3/uL (0.0-0.6); ABSOLUTE LYMPHOCYTES (AUTO) 4.5 10^3/uL (0.5-4.7); ABSOLUTE MONOCYTES (AUTO) 1.3 10^3/uL (0.1-1.4); ABSOLUTE NEUT (AUTO) 7.5 10^3/uL (1.7-8.2); BASOPHILS % (AUTO) 0.9 % (0-2); HEMATOCRIT 34.8 % (36.0-47.0); HEMOGLOBIN 11.8 g/dL (12.0-15.5); LYMPHOCYTES % (AUTO) 32.7 % (13-45); MEAN CORPUSCULAR HEMOGLOBIN 32.2 pg (27.0-33.4); MEAN CORPUSCULAR HGB CONC 33.9 g/dL (32.0-36.0); MEAN CORPUSCULAR VOLUME 95 fl (80-97); MONOCYTES % (AUTO) 9.4 % (3-13); PLATELET COUNT 333 10^3/uL (150-450); RED BLOOD COUNT 3.66 10^6/uL (3.72-5.28); RED CELL DISTRIBUTION WIDTH 14.2 % (11.5-14.0); TOTAL CELLS COUNTED % (AUTO) 100 %; WHITE BLOOD COUNT 13.7 10^3/uL (4.0-10.5)
[2018-04-27 06:36] LABS: ANION GAP 13 (5-19); BLOOD UREA NITROGEN 19 mg/dL (7-20); CALCIUM 10.4 mg/dL (8.4-10.2); CARBON DIOXIDE 27 mmol/L (22-30); CHLORIDE 99 mmol/L (98-107); GLUCOSE 95 mg/dL (75-110); POTASSIUM 3.6 mmol/L (3.6-5.0); SODIUM 139.2 mmol/L (137-145)
[2018-04-27] MEDS: CEFEPIME 2 GM/D5W RTU 2 GM/50 ML RTUPB IV SCH (09:50)
[2018-04-27] MEDS: METOPROLOL SUCCINATE 50 MG TAB.SR.24H PO SCH (09:51)
[2018-04-27] MEDS: MEGESTROL ACETATE 20 MG TABLET PO SCH (09:51)
[2018-04-27] MEDS: APIXABAN 2.5 MG TABLET PO SCH (09:51)
[2018-04-27] MEDS: FAMOTIDINE 20 MG TABLET PO SCH (09:51)
[2018-04-27] MEDS: FUROSEMIDE 40 MG TABLET PO SCH (09:51)
[2018-04-27] MEDS: LORATADINE 10 MG TABLET PO SCH (09:51)
[2018-04-27] MEDS: NYSTATIN CREAM 15 GM TP SCH (09:52)
[2018-04-27] MEDS: VANCOMYCIN HCL 1,000 MG in DEXTROSE 5%-WATER 250 ML IV SCH (10:55)
--- NOTE | 2018-04-27 12:24 | PDOC DISCHARGE SUMMARY ---
General - Admit/Disc Date/PCP Admission Date/Primary Care Provider: 04/21/18 15:39 KEVIN BRANNON MD Discharge Date: 04/27/18 - Discharge Diagnosis (1) Sepsis due to group B Streptococcus Is this a current diagnosis for this admission?: Yes (2) Sepsis Is this a current diagnosis for this admission?: Yes (3) Cellulitis of left leg Is this a current diagnosis for this admission?: Yes (4) Sacral decubitus ulcer, stage III Is this a current diagnosis for this admission?: Yes (5) Polymicrobial bacterial infection Is this a current diagnosis for this admission?: Yes (6) Dementia Is this a current diagnosis for this admission?: Yes - Additional Information Prescriptions: Amox Tr/Potassium Clavulanate [Augmentin 875-125 mg Tablet] 1 tab PO BID #20 tablet Home Medications: Alprazolam [Xanax 0.5 mg Tablet] 0.5 mg PO BIDP PRN 09/23/17 Apixaban [Eliquis 2.5 mg Tablet] 2.5 mg PO BID 09/23/17 Megestrol Acetate 40 mg PO BID 09/23/17 Metoprolol Succinate [Toprol Xl 50 mg Tab.sr] 50 mg PO DAILY 09/23/17 Mirtazapine [Remeron] 30 mg PO QHS 09/23/17 Montelukast Sodium [Singulair 10 mg Tablet] 10 mg PO QHS 09/23/17 Tramadol HCl/Acetaminophen [Tramadol-Acetaminophn 37.5-325] 1 tab PO Q6HP PRN Dexlansoprazole [Dexilant 30 mg Capsule] 30 mg PO DAILYP PRN 04/21/18 Diclofenac Sodium [Voltaren] 4 gm TP TIDP PRN 04/21/18 Donepezil HCl [Aricept] 10 mg PO QHS 04/21/18 Furosemide [Lasix 40 mg Tablet] 40 mg PO QAM 04/21/18 Loratadine [Claritin 10 mg Tablet] 10 mg PO DAILY 04/21/18 Nystatin [Mycostatin Topical Powder 15 gm] 1 applic TP DAILY 04/21/18 Amox Tr/Potassium Clavulanate [Augmentin 875-125 mg Tablet] 1 tab PO BID #20 tablet 04/27/18 History of Present Illness History of Present Illness: MAGDALENO NAVAS is a 83 year old female, She presented to the emergency room with symptoms of sepsis, leukocytosis altered mental status. Hospital Course Hospital Course: She was admitted for evaluation and management of sepsis due to severe cellulitis of the left lower extremities, sacral decubiti ulcer that was present on admission. The blood culture grew beta hemolytic Streptococcus, the sacral decubiti ulcer was debrided, polymicrobial organisms were cultured including Pseudomonas, E faecalis. She was treated empirically with IV antibiotic, Rocephin and clindamycin, patient improved with treatment, there was complete resolution of the cellulitis. Physical Exam Vital Signs: Temp Pulse Resp BP Pulse Ox 98.8 F 88 17 135/73 H 96 04/27/18 11:34 04/27/18 11:34 04/27/18 11:34 04/27/18 11:34 04/27/18 11:34 Intake & Output 04/26/18 04/27/18 04/28/18 06:59 06:59 06:59 Intake Total 858 1280 50 Output Total 2625 1575 Balance -1767 -295 50 Weight 80 kg 78.7 kg General appearance: PRESENT: no acute distress Eye exam: PRESENT: PERRLA Respiratory exam: PRESENT: clear to auscultation danitza Cardiovascular exam: PRESENT: +S1, +S2 GI/Abdominal exam: PRESENT: soft Neurological exam: PRESENT: alert Results Laboratory Results: 04/27/18 05:17 04/27/18 05:17 04/26/18 04/27/18 04/27/18 18:14 05:17 05:17 WBC 13.7 H RBC 3.66 L Hgb 11.8 L Hct 34.8 L MCV 95 MCH 32.2 MCHC 33.9 RDW 14.2 H Plt Count 333 Seg Neutrophils % 55.0 Lymphocytes % 32.7 Monocytes % 9.4 Eosinophils % 2.0 Basophils % 0.9 Absolute Neutrophils 7.5 Absolute Lymphocytes 4.5 Absolute Monocytes 1.3 Absolute Eosinophils 0.3 Absolute Basophils 0.1 Sodium 140.4 139.2 Potassium 3.6 3.6 Chloride 100 99 Carbon Dioxide 25 27 Anion Gap 15 13 BUN 15 19 Creatinine 0.60 0.71 Est GFR ( Amer) > 60 > 60 Est GFR (Non-Af Amer) > 60 > 60 Glucose 95 95 Calcium 10.7 H 10.4 H Total Bilirubin 0.5 AST 39 H ALT 60 H Alkaline Phosphatase 77 Total Protein 7.6 Albumin 3.8 Impressions: Chest CT 04/22/18 00:00 IMPRESSION: Atelectasis. No infiltrate. Chest X-Ray 04/22/18 00:00 IMPRESSION: 1. No pneumothorax status post central line placement. Mild left basilar atelectasis. 2. Enlarged right lower lobe of the thyroid gland. Qualifiers - * PATIENT BEING DISCHARGED WITH ANY OF THE FOLLOWING DIAGNOSIS: No
[2018-04-27 19:38] VITALS: BP 128/81
== END 2018-04-27 19:45 | disposition home or self-care (01) | DRG 871 ==
LOC: ER 13:17 → EH 15:39 → 3W 17:26
PROVIDERS: ADMIT Internal Medicine; ATTEND Internal Medicine
PROC: 3E0F73Z Introduction of Anti-inflammatory into Respiratory Tract, Via Natural or Artificial Opening (ICD-10-PCS; 2018-04-21)
PROC: 02HV33Z Insertion of Infusion Device into Superior Vena Cava, Percutaneous Approach (ICD-10-PCS; principal; 2018-04-22)
DX: A40.1 Sepsis due to streptococcus, group B (principal); L89.153 Pressure ulcer of sacral region, stage 3; L03.116 Cellulitis of left lower limb; N39.0 Urinary tract infection, site not specified; B96.89 Other specified bacterial agents as the cause of diseases classified elsewhere; F03.90 Unspecified dementia, unspecified severity, without behavioral disturbance, psychotic disturbance, mood disturbance, and anxiety; B96.5 Pseudomonas (aeruginosa) (mallei) (pseudomallei) as the cause of diseases classified elsewhere; B95.2 Enterococcus as the cause of diseases classified elsewhere; I11.0 Hypertensive heart disease with heart failure; I50.9 Heart failure, unspecified; K44.9 Diaphragmatic hernia without obstruction or gangrene; M19.90 Unspecified osteoarthritis, unspecified site; E04.9 Nontoxic goiter, unspecified; E05.90 Thyrotoxicosis, unspecified without thyrotoxic crisis or storm; I48.2 Chronic atrial fibrillation; R31.9 Hematuria, unspecified; R22.1 Localized swelling, mass and lump, neck; Z74.01 Bed confinement status; Z79.899 Other long term (current) drug therapy; Z87.891 Personal history of nicotine dependence
CPT/HCPCS: 36415; 51701; 71045; 71250; 80048; 80053; 80202; 81001; 82550; 82553; 83605; 83690; 83880; 84484; 85025; 85610; 85730; 87040; 87070; 87077; 87086; 87186; 87205; 93005; 93010; 99285; J0692; J0696; J1642; J3370; J3490; J7030; J7060; S0028

== ENCOUNTER 2018-09-20 00:08 | Emergency (ER) | payer MEDICARE, MEDICAID ==
--- NOTE | 2018-09-20 00:35 | ER Document Report ---
ED General - General Chief Complaint: Other Stated Complaint: POSSIBLE URINARY ISSUE Time Seen by Provider: 09/20/18 00:24 Notes: Patient is an 83-year-old female that comes to the emergency department for chief complaint of eating less and an episode where she coughed up some sputum that looked "foamy". Patient is nonverbal, has dementia, she does cooperate for daughter and does take her medications daily as prescribed, she lives at home, she comes by EMS. Daughter states she thinks that she is also getting a urinary she has different from her normal baseline. She has not had any fever, vomiting, diarrhea, or any obvious other symptoms. Past medical history of CHF, dementia, hypertension. TRAVEL OUTSIDE OF THE [place] IN LAST 30 DAYS: No - Related Data Allergies/Adverse Reactions: No Known Allergies Allergy (Verified 09/23/17 03:26) Past Medical History - General Information source: Patient - Social History Smoking Status: Never Smoker Frequency of alcohol use: None Drug Abuse: None Lives with: Family Family History: Reviewed & Not Pertinent - Past Medical History Cardiac Medical History: Reports: Hx Atrial Fibrillation, Hx Congestive Heart Failure, Hx Hypertension Renal/ Medical History: Denies: Hx Peritoneal Dialysis GI Medical History: Reports: Hx Hiatal Hernia Musculoskeletal Medical History: Reports Hx Arthritis Psychiatric Medical History: Reports: Hx Dementia Past Surgical History: Reports: Hx Section - x2, Hx Thyroid Surgery - removal of left side. Denies: Hx Mastectomy, Hx Open Heart Surgery, Hx Pacemaker - Immunizations Immunizations up to date: Yes Hx Diphtheria, Pertussis, Tetanus Vaccination: Yes Hx Pneumococcal Vaccination: 07/12/17 Review of Systems - Review of Systems Constitutional: See HPI EENT: No symptoms reported Cardiovascular: No symptoms reported Respiratory: See HPI Gastrointestinal: No symptoms reported Genitourinary: See HPI Female Genitourinary: No symptoms reported Musculoskeletal: No symptoms reported Skin: No symptoms reported Hematologic/Lymphatic: No symptoms reported Neurological/Psychological: No symptoms reported Physical Exam - Vital signs Vitals: Temp 98.7 F 09/20/18 00:30 - Notes Notes: GENERAL: Patient does follow me with her eyes but does not interact otherwise. HEAD: Normocephalic, atraumatic. EYES: Pupils equal, round, and reactive to light. Extraocular movements intact. ENT: Oral mucosa moist, tongue midline. Oropharynx unremarkable. Airway patent. Nares patent, no nasal septal hematoma, TM's intact. NECK: Full range of motion. Supple. Trachea midline. LUNGS: Clear to auscultation bilaterally, no wheezes, rales, or rhonchi. No respiratory distress. HEART: Regular rate and rhythm. No murmur ABDOMEN: Soft, non-tender. Non-distended. Bowel sounds present in all 4 quadrants. GENITOURINARY: Deferred EXTREMITIES: Moves all 4 extremities spontaneously. No edema, normal radial and dorsalis pedis pulses bilaterally. No cyanosis. BACK: no cervical, thoracic, lumbar midline tenderness. No saddle anesthesia, normal distal neurovascular exam. NEUROLOGICAL: Alert. Will not converse. Yells if she is touched. SKIN: Stage II decubitus ulcer noted with recent dressing over it. Adjacent to this there is some skin breakdown over the left posterior thigh, this is erythematous and warm to the touch suggestive of cellulitis. Remaining skin examination is unremarkable. Course - Re-evaluation Re-evalutation: Patient is minimally responsive unless she is directly interacted with, if she is touched or moved she begins yelling. Daughter states this is her baseline. She has clear lungs, no tachypnea, no signs of distress. Soft abdomen. Unremarkable vital signs. Vague complaints. Chest x-ray with no overt abnormality. Urinalysis unremarkable. CBC does show leukocytosis at 16,000 with elevation of neutrophils. Chemistry unremarkable. Patient does not have a fever but because of leukocytosis I did evaluate patient more closely looking for source of infection, I did evaluate patient's decubitus ulcer, there is some nearby cellulitis and mainly some cellulitis over the skin breakdown at the left posterior thigh. There is no induration or discharge. The area is warm and erythematous. There is a dressing over the decubitus ulcer. I discussed with daughter, discussed admission for elderly patient with leukocytosis and cellulitis, however daughter is requesting to go home, follow- up with primary care and wound care clinic. Wants to try outpatient antibiotics first. She does not have a fever, she is reportedly at her baseline, she is not tachycardic or hypotensive. Started on oral antibiotics, daughter states she takes her oral medications without any difficulty and has been taking them today. Discharge with return precautions. - Vital Signs Vital signs: Temp Pulse Resp BP Pulse Ox 98.7 F 20 117/62 98 09/20/18 00:30 09/20/18 05:00 09/20/18 05:00 09/20/18 05:00 - Laboratory Result Diagrams: 09/20/18 01:18 09/20/18 01:18 Laboratory results interpreted by me: 09/20/18 09/20/18 09/20/18 00:55 01:18 01:18 WBC 16.4 H RDW 16.2 H Absolute Neutrophils 10.8 H Glucose 114 H Calcium 10.6 H Urine Blood MODERATE H Discharge - Discharge Clinical Impression: Cellulitis Qualifiers: Site of cellulitis: extremity Site of cellulitis of extremity: lower extremity Laterality: left Qualified Code(s): L03.116 - Cellulitis of left lower limb Decubitus ulcer Qualifiers: Pressure injury location: sacral region Pressure injury stage: stage 2 Qualified Code(s): L89.152 - Pressure ulcer of sacral region, stage 2 Condition: Stable Disposition: HOME, SELF-CARE Additional Instructions: Her laboratory evaluation shows an elevated white blood cell count, probably bec ause of the cellulitis on her left lower extremity and buttocks. Give the antibiotics as prescribed. Follow-up within the next few days with her primary care provider. Follow-up with the wound care clinic. Return if she worsens including confusion, fever/chills, vomiting, or any other concerning or worsening symptoms. Prescriptions: Cephalexin Monohydrate [Keflex 500 mg Capsule] 500 mg PO QID #28 capsule Sulfamethoxazole/Trimethoprim [Bactrim Ds Tablet] 1 each PO BID #14 tablet Referrals: KEVIN BRANNON MD [Primary Care Provider] - 09/21/18
[2018-09-20 01:12] LABS: APPEARANCE,URINE CLEAR; BILIRUBIN,URINE NEGATIVE (NEGATIVE); COLOR,URINE YELLOW; GLUCOSE, URINE NEGATIVE (NEGATIVE); KETONES,URINE NEGATIVE (NEGATIVE); LEUKOCYTE ESTERASE,URINE NEGATIVE (NEGATIVE); NITRITE,URINE NEGATIVE (NEGATIVE); PROTEIN,URINE NEGATIVE (NEGATIVE); URINE SPECIFIC GRAVITY 1.016; UROBILINOGEN,URINE NEGATIVE mg/dL (<2.0)
[2018-09-20 01:28] LABS: ABSOLUTE BASOPHILS # (AUTO) 0.1 10^3/uL (0.0-0.2); ABSOLUTE EOSINOPHILS # (AUTO) 0.2 10^3/uL (0.0-0.6); ABSOLUTE LYMPHOCYTES (AUTO) 4.4 10^3/uL (0.5-4.7); ABSOLUTE MONOCYTES (AUTO) 0.9 10^3/uL (0.1-1.4); ABSOLUTE NEUT (AUTO) 10.8 10^3/uL (1.7-8.2); BASOPHILS % (AUTO) 0.8 % (0-2); EOSINOPHILS % (AUTO) 0.9 % (0-6); HEMATOCRIT 37.2 % (36.0-47.0); HEMOGLOBIN 12.3 g/dL (12.0-15.5); LYMPHOCYTES % (AUTO) 26.5 % (13-45); MEAN CORPUSCULAR HEMOGLOBIN 30.6 pg (27.0-33.4); MEAN CORPUSCULAR VOLUME 93 fl (80-97); MONOCYTES % (AUTO) 5.8 % (3-13); PLATELET COUNT 290 10^3/uL (150-450); RED BLOOD COUNT 4.01 10^6/uL (3.72-5.28); RED CELL DISTRIBUTION WIDTH 16.2 % (11.5-14.0); TOTAL CELLS COUNTED % (AUTO) 100 %; WHITE BLOOD COUNT 16.4 10^3/uL (4.0-10.5)
[2018-09-20 01:47] LABS: ANION GAP 10 (5-19); BLOOD UREA NITROGEN 20 mg/dL (7-20); CALCIUM 10.6 mg/dL (8.4-10.2); CARBON DIOXIDE 24 mmol/L (22-30); CHLORIDE 106 mmol/L (98-107); GLUCOSE 114 mg/dL (75-110)
--- NOTE | 2018-09-20 01:57 | RADIOLOGY REPORT (SQ) ---
EXAM DESCRIPTION: X-ray single view chest. CLINICAL HISTORY: 83 years Female, productive cough COMPARISON: Prior CT chest performed on 04/22/2018 and two view chest x-ray performed on 01/19/2018. TECHNIQUE: Single portable view of the chest performed on 09/20/2018 at 1:40 AM FINDINGS: The lungs are well expanded. There is minimal stable volume loss in the left lung base likely due to atelectasis. A trace effusion is not excluded. There is no evidence of a pneumothorax. The cardiac silhouette is normal in size and configuration. There is stable fullness of the right paratracheal soft tissues consistent with a substernal goiter. There are surgical clips in the region of the thyroid gland centrally and to the left of midline. There is a questionable fracture of the posterior left sixth rib. There are degenerative changes of the thoracic spine and shoulders. Lines and tubes: None. IMPRESSION: 1. Stable mild volume loss in the left lung base likely due to atelectasis. A trace left pleural effusion is not excluded. 2. 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 3. Questionable fracture of the posterior left sixth rib.
[2018-09-20 02:14] LABS: POTASSIUM 3.9 mmol/L (3.6-5.0)
[2018-09-20] MEDS ORDERED: SULFAMETHOXAZOLE/TRIMETHOPRIM 800-160 MG TABLET PO ONE (02:42)
[2018-09-20] MEDS ORDERED: CEPHALEXIN 500 MG CAPSULE PO ONE (02:42)
[2018-09-20 07:06] VITALS: BP 118/65
== END 2018-09-20 07:41 | disposition home or self-care (01) ==
LOC: ER 00:08
DX: L03.116 Cellulitis of left lower limb (principal); L89.152 Pressure ulcer of sacral region, stage 2; I48.91 Unspecified atrial fibrillation; I50.9 Heart failure, unspecified; I11.0 Hypertensive heart disease with heart failure
CPT/HCPCS: 99284; 51701; 36415; 85025; 80048; 81001; 71045; A9270 ×2

== ENCOUNTER → 2018-10-26 | Outpatient (CLI) | payer MEDICARE, MEDICAID ==
[2018-10-26 17:45] LABS: ABSOLUTE EOSINOPHILS # (AUTO) 0.2 10^3/uL (0.0-0.6); ABSOLUTE LYMPHOCYTES (AUTO) 4.2 10^3/uL (0.5-4.7); ABSOLUTE MONOCYTES (AUTO) 0.7 10^3/uL (0.1-1.4); BASOPHILS % (AUTO) 0.4 % (0-2); EOSINOPHILS % (AUTO) 1.3 % (0-6); HEMATOCRIT 34.7 % (36.0-47.0); HEMOGLOBIN 11.6 g/dL (12.0-15.5); LYMPHOCYTES % (AUTO) 34.8 % (13-45); MEAN CORPUSCULAR HEMOGLOBIN 31.2 pg (27.0-33.4); MEAN CORPUSCULAR HGB CONC 33.5 g/dL (32.0-36.0); MEAN CORPUSCULAR VOLUME 93 fl (80-97); MONOCYTES % (AUTO) 5.6 % (3-13); PLATELET COUNT 360 10^3/uL (150-450); RED BLOOD COUNT 3.73 10^6/uL (3.72-5.28); RED CELL DISTRIBUTION WIDTH 15.3 % (11.5-14.0); SEGMENTED NEUTROPHILS % (AUTO) 57.9 % (42-78); TOTAL CELLS COUNTED % (AUTO) 100 %; WHITE BLOOD COUNT 12.2 10^3/uL (4.0-10.5)
[2018-10-26 17:53] LABS: ALANINE AMINOTRANSFERASE 14 U/L (9-52); ALKALINE PHOSPHATASE 91 U/L (38-126); ANION GAP 10 (5-19); ASPARTATE AMINO TRANSFERASE 19 U/L (14-36); BILIRUBIN,DIRECT 0.3 mg/dL (0.0-0.4); BILIRUBIN,TOTAL 0.3 mg/dL (0.2-1.3); BLOOD UREA NITROGEN 17 mg/dL (7-20); CALCIUM 10.4 mg/dL (8.4-10.2); CARBON DIOXIDE 25 mmol/L (22-30); CHLORIDE 108 mmol/L (98-107); GLUCOSE 91 mg/dL (75-110); POTASSIUM 3.7 mmol/L (3.6-5.0); SODIUM 143.2 mmol/L (137-145); TOTAL PROTEIN 7.3 g/dL (6.3-8.2); URIC ACID 8.5 mg/dL (2.5-7.5)
[2018-10-26 18:08] LABS: FREE T4 (FREE THYROXINE) 1.13 ng/dL (0.78-2.19)
[2018-10-26 18:22] LABS: THYROID STIMULATING HORMONE 1.29 uIU/mL (0.47-4.68)
== END ==
LOC: OD 16:07
PROVIDERS: ATTEND Internal Medicine
DX: I10 Essential (primary) hypertension (principal)
CPT/HCPCS: 36415; 80053; 84439; 84443; 84550; 85025

== ENCOUNTER → 2018-11-20 | Outpatient (CLI) | payer MEDICARE, MEDICAID ==
[2018-11-20 12:29] LABS: CHOLESTEROL 173.15 mg/dL (0-200); TRIGLYCERIDES 118 mg/dL (<150)
[2018-11-20 12:40] LABS: DIRECT LDL 108 mg/dL (<100)
== END ==
LOC: OD 10:57
PROVIDERS: ATTEND Internal Medicine
DX: I10 Essential (primary) hypertension (principal)
CPT/HCPCS: 36415; 80061

== ENCOUNTER 2020-01-02 07:29 | Observation (INO) | payer MEDICARE, MEDICAID ==
[2020-01-02] MEDS ORDERED: NORMAL SALINE 1000 ML 2,000 ML IV PRN (09:04)
--- NOTE | 2020-01-02 09:14 | ER Document Report ---
ED General - General Chief Complaint: Weakness Stated Complaint: GENERAL WEAKNESS Time Seen by Provider: 01/02/20 07:44 Mode of Arrival: Medic Information source: Patient Notes: 84-year-old woman brought from home altered mental status, cough, not feeling well for the past 2 days. Patient has a history of rheumatoid arthritis, sepsis in the past, UTI. She is unable to give a history at this time. She is able to tell me her name and to answer questions with yes no answers. During the exam it is noted that she has some stage I and stage II skin breakdown on the bottom with erythema and epidermal breakdown. Apparently daughter found her this morning, coughing, foamy around the mouth, sounded junky and there was concern for possible recurrent aspiration pneumonia. The patient also had decreased responsiveness and was not her normal verbal communication. TRAVEL OUTSIDE OF THE [place] IN LAST 30 DAYS: No - Related Data Allergies/Adverse Reactions: No Known Allergies Allergy (Verified 09/23/17 03:26) Past Medical History - Social History Smoking Status: Unknown if Ever Smoked Family History: Reviewed & Not Pertinent - Past Medical History Cardiac Medical History: Reports: Hx Atrial Fibrillation, Hx Congestive Heart Failure, Hx Hypertension Renal/ Medical History: Denies: Hx Peritoneal Dialysis GI Medical History: Reports: Hx Hiatal Hernia Musculoskeletal Medical History: Reports Hx Arthritis Psychiatric Medical History: Reports: Hx Dementia Past Surgical History: Reports: Hx Section - x2, Hx Thyroid Surgery - removal of left side. Denies: Hx Mastectomy, Hx Open Heart Surgery, Hx Pacemaker - Immunizations Immunizations up to date: Yes Hx Diphtheria, Pertussis, Tetanus Vaccination: Yes Hx Pneumococcal Vaccination: 07/12/17 Review of Systems - Review of Systems Notes: Constitutional: Negative for fever. HENT: Negative for sore throat. Eyes: Negative for visual changes. Cardiovascular: Negative for chest pain. Respiratory: + Cough, + shortness of breath Gastrointestinal: Negative for abdominal pain, vomiting or diarrhea. Genitourinary: Negative for dysuria. Musculoskeletal: Negative for back pain. Skin: Negative for rash. Neurological: + Decreased responsiveness 10 point ROS negative except as marked above and in HPI. Physical Exam - Vital signs Vitals: Temp Pulse Resp BP Pulse Ox 97.7 F 61 22 H 147/91 H 99 01/02/20 07:29 01/02/20 07:29 01/02/20 07:29 01/02/20 07:29 01/02/20 07:29 - Notes Notes: PHYSICAL EXAMINATION: Physical Exam: General: Ill elderly female in no acute distress, decreased responsiveness HEENT: NC/AT, pupils equal round and reactive to light, MM moist,nares clear, oropharynx clear, airway patent Neck: supple, no adenopathy, no masses. Good range of motion Lungs: Scattered rhonchi, no respiratory distress CVS: Regular rate and rhythm no murmur gallop or rub Abdomen: Soft, active, nontender, no masses, no hepatosplenomegaly Ext: Contracture of the left upper extremity in a flexed position. Neuro: Responsive verbal stimuli, able to tell me her name, answer yes/no questions appropriately,, moving all 4 extremities on command, cranial nerves intact, no focal findings Skin: Stage I/stage II decubitus ulcer buttock region PSYCH: Normal mood, normal affect. Course - Re-evaluation Re-evalutation: 01/02/20 11:19 Patient presents with altered mental status and a possible aspiration I have discussed the patient with Dr. Hall, attending physician, he will admit her to a medical bed for further monitoring and treatment. COVID-19 screening was performed. - Vital Signs Vital signs: Temp Pulse Resp BP Pulse Ox 97.7 F 63 32 H 158/87 H 100 01/02/20 13:19 01/02/20 14:00 01/02/20 13:19 01/02/20 13:19 01/02/20 13:19 - Laboratory Result Diagrams: 01/02/20 09:33 01/02/20 09:33 Laboratory results interpreted by me: 01/02/20 01/02/20 09:33 09:33 RBC 3.65 L Hct 35.6 L MCH 33.9 H RDW 14.6 H Urine Blood MODERATE H - Diagnostic Test Radiology reviewed: Image reviewed, Reports reviewed - Chest x-ray: Central line in place, no pneumothorax, no acute infiltrate, right lower lobe scarring, hemidiaphragm, no effusion. - EKG Interpretation by Me Rhythm: A.Fib - Controlled rate 83, IVCD, Procedures - Central Line Right Internal jugular Time completed: 09:00 Consent obtained: Yes - Verbal consent obtained from the patient. Central line pre-insertion: Chloraprep applied Central line size (Fr.): 20 Central line lumen type: Triple Anesthetic type: 1% Lidocaine mL's of anesthesia: 5 Ultrasound guided: Yes - Ultrasound guided placement triple-lumen catheter, no difficulty CM at insertion site: 17 Line secured with sutures: Yes Central line post-insertion: Blood return from lumens, Biopatch applied, Sutured, Sterile dressing applied, Position confirmed w/ CXR Number of attempts: 1 Complications: No - Patient tolerated the procedure well, good flow from all 3 ports. Critical Care Note - Critical Care Note Total time excluding time spent on procedures (mins): 60 - Critical care time spent obtaining history from patient or surrogate, discussions with consultants, development of treatment plan with patient or surrogate, evaluation of patient's response to treatment, examination of patient, ordering and performing treatments and interventions, ordering and review of laboratory studies, re- evaluation of patient's condition, ordering and review of radiographic studies and review of old charts Discharge - Discharge Clinical Impression: Aspiration pneumonitis, Decreased responsiveness, Volume depletion, Dehydration Condition: Good Disposition: ADMITTED INPATIENT Admitting Provider: Duanemi Unit Admitted: Medical Floor
[2020-01-02] MEDS: CEFTRIAXONE 1 GM/D5W RTU 1 GM/50 ML RTUPB IV SCH (09:35)
--- NOTE | 2020-01-02 09:45 | RADIOLOGY REPORT (SQ) ---
EXAM DESCRIPTION: CHEST SINGLE VIEW IMAGES COMPLETED DATE/TIME: 01/02/2020 9:24 am REASON FOR STUDY: Post central line placement/cough COMPARISON: 09/20/2018 EXAM PARAMETERS: NUMBER OF VIEWS: One view. TECHNIQUE: Single frontal radiographic view of the chest acquired. RADIATION DOSE: NA LIMITATIONS: None. FINDINGS: LUNGS AND PLEURA: Mild chronic elevation of the left hemidiaphragm, unchanged finding. L eft basilar scarring or atelectasis. The right lung is clear. No pneumothorax. MEDIASTINUM AND HILAR STRUCTURES: No masses. Contour normal. HEART AND VASCULAR STRUCTURES: Heart normal in size. Normal vasculature. BONES: No acute findings. HARDWARE: Interval placement of right central venous line with the tip at the caval atrial junction. There is kinking of the central line at the level of the right supraclavicular fossa. Multiple surgical metallic clips at the base of the neck on the left, stable finding. OTHER: Smooth deviation of the trachea to the left of the midline maybe on the basis of enlarged thy roid gland, unchanged finding. IMPRESSION: 1. Status post placement of right central line with the tip at the region of the caval atrial junction. No evidence of pneumothorax. 2. There is kinking of the central line at the level of the right supraclavicular fossa. Correlatio n suggested. 3. Stable left base scarring or atelectasis and chronic mild elevation of the left hemidiaphragm. N o acute pulmonary findings. TECHNICAL DOCUMENTATION: JOB ID: [id number] 2010 [employer]- All Rights Reserved Reading location - IP/workstation name: [email or web address]
[2020-01-02 10:01] LABS: ABSOLUTE EOSINOPHILS # (AUTO) 0.2 10^3/uL (0.0-0.6); ABSOLUTE LYMPHOCYTES (AUTO) 3.7 10^3/uL (0.5-4.7); ABSOLUTE MONOCYTES (AUTO) 0.5 10^3/uL (0.1-1.4); BASOPHILS % (AUTO) 0.5 % (0-2); EOSINOPHILS % (AUTO) 2.3 % (0-6); HEMATOCRIT 35.6 % (36.0-47.0); HEMOGLOBIN 12.4 g/dL (12.0-15.5); LYMPHOCYTES % (AUTO) 43.8 % (13-45); MEAN CORPUSCULAR HEMOGLOBIN 33.9 pg (27.0-33.4); MEAN CORPUSCULAR HGB CONC 34.9 g/dL (32.0-36.0); MEAN CORPUSCULAR VOLUME 97 fl (80-97); MONOCYTES % (AUTO) 5.8 % (3-13); PLATELET COUNT 251 10^3/uL (150-450); RED BLOOD COUNT 3.65 10^6/uL (3.72-5.28); RED CELL DISTRIBUTION WIDTH 14.6 % (11.5-14.0); SEGMENTED NEUTROPHILS % (AUTO) 47.6 % (42-78); TOTAL CELLS COUNTED % (AUTO) 100 %; WHITE BLOOD COUNT 8.4 10^3/uL (4.0-10.5)
[2020-01-02 10:19] LABS: ALBUMIN 3.7 g/dL (3.5-5.0); ALKALINE PHOSPHATASE 102 U/L (38-126); ANION GAP 8 (5-19); ASPARTATE AMINO TRANSFERASE 20 U/L (14-36); BILIRUBIN,TOTAL 0.4 mg/dL (0.2-1.3); BLOOD UREA NITROGEN 17 mg/dL (7-20); CALCIUM 10.2 mg/dL (8.4-10.2); CARBON DIOXIDE 26 mmol/L (22-30); CHLORIDE 106 mmol/L (98-107); GLUCOSE 86 mg/dL (75-110); TOTAL PROTEIN 7.1 g/dL (6.3-8.2)
[2020-01-02 11:14] LABS: A TYPE INFLUENZA AG NEGATIVE (NEGATIVE); B INFLUENZA AG NEGATIVE (NEGATIVE)
[2020-01-02 11:40] LABS: APPEARANCE,URINE CLEAR; BILIRUBIN,URINE NEGATIVE (NEGATIVE); COLOR,URINE YELLOW; GLUCOSE, URINE NEGATIVE (NEGATIVE); KETONES,URINE NEGATIVE (NEGATIVE); PROTEIN,URINE NEGATIVE (NEGATIVE); URINE SPECIFIC GRAVITY 1.015; UROBILINOGEN,URINE NEGATIVE mg/dL (<2.0)
[2020-01-02] MEDS ORDERED: RINGERS SOLUTION,LACTATED 1,000 ML IV PRN (17:45)
[2020-01-02] MEDS ORDERED: ALBUTEROL SULFATE 0.083% NEB 2.5 MG/3 ML AMPUL NEB PRN (17:45)
[2020-01-02] MEDS ORDERED: POLYETHYLENE GLYCOL 3350 POWDER 17 GM/1 PACKET PO PRN (17:49)
[2020-01-02] MEDS ORDERED: ONDANSETRON HCL 8 MG TABLET PO PRN (17:49)
[2020-01-02] MEDS ORDERED: (PENDING PHARMACY ID) (Diclofenac Sodium [Voltaren] 4 GM) TOP PRN (17:49)
[2020-01-02] MEDS ORDERED: (PENDING PHARMACY ID) (Oxycodone Hcl/Acetaminophen [Percocet 7.5-325 Mg Tablet] 1 TAB) PO PRN (17:49)
[2020-01-02] MEDS: METOPROLOL SUCCINATE 50 MG TAB.SR.24H PO SCH (18:22)
[2020-01-02] MEDS: APIXABAN 2.5 MG TABLET PO SCH (18:22)
[2020-01-02] MEDS: CETIRIZINE 10 MG TABLET PO SCH (18:22)
[2020-01-02] MEDS: NYSTATIN TOPICAL POWDER 15 GM TP SCH (18:49)
[2020-01-02] MEDS: AMPICILLIN SODIUM/SULBACTAM NA 3 GM in NORMAL SALINE 100 ML IV SCH ×2 (18:49→23:42)
[2020-01-02] MEDS: NITROFURANTOIN MONOHYD/M-CRYST 100 MG CAPSULE PO SCH (18:49)
--- NOTE | 2020-01-02 20:02 | PDOC H&P ---
History of Present Illness Admission Date/PCP: 01/02/20 11:26 KEVIN BRANNON MD History of Present Illness: MAGDALENO NAVAS is a 84 year old female, She has very advanced dementia bedbound she was brought to the emergency room by her family about this morning for evaluation of altered mental status, the daughter apparently found the caffeine with foam around the mouth she supposedly sounding junky, in the emergency room she was evaluated, the hemogram was normal there was no white cell elevation, chest x-ray was normal there is no infiltrate she has no fever, she is not in any distress, because she coughed the emergency room physician felt patient needed to be admitted on COVID floor. I saw the patient today on the floor she is very stable I do not believe she needs to be on COVID floor because the probability of this patient with coronavirus is 0 she has no manifestation that suggest COVID 19, the risk outweighed the benefit of having this patient on a dedicated floor for highly suspected COVID-19 patients and also there is insufficient PPE. Because the probability of COVID-19 is extremely low in this patient I thought patient could be transferred back to regular floor, she will empirically be treated with IV antibiotic for 24 hours she be discharged home tomorrow, it is to be noted because of the hospital policy patient's family is not able to be by her side. This is a patient with advanced dementia the daughter is the primary caregiver and she stays in the room with her at all times it is not in the patient's best interest to be hospitalized especially she is very stable she is stable enough to be discharged home in 24 hours. Patient status will be changed to observation Past Medical History Cardiac Medical History: Reports: Atrial Fibrillation, Congestive Heart Failure, Hypertension GI Medical History: Reports: Hiatal Hernia Musculoskeltal Medical History: Reports: Arthritis Psychiatric Medical History: Reports: Dementia Past Surgical History Past Surgical History: Reports: Section - x2 Social History Smoking Status: Unknown if Ever Smoked Frequency of Alcohol Use: None Hx Recreational Drug Use: No Drugs: None Hx Prescription Drug Abuse: No Family History Family History: Reviewed & Not Pertinent Parental Family History Reviewed: Yes Children Family History Reviewed: Yes Sibling(s) Family History Reviewed.: Yes Medication/Allergy Home Medications: Alprazolam [Xanax 0.5 mg Tablet] 0.5 mg PO Q8HP PRN 09/23/17 Apixaban [Eliquis 2.5 mg Tablet] 2.5 mg PO BID 09/23/17 Metoprolol Succinate [Toprol Xl 50 mg Tab.sr] 50 mg PO DAILY 09/23/17 Mirtazapine [Remeron] 30 mg PO QHS 09/23/17 Diclofenac Sodium [Voltaren] 4 gm TP TIDP PRN 04/21/18 Donepezil HCl [Aricept] 10 mg PO QHS 04/21/18 Nystatin [Mycostatin Topical Powder 15 gm] 1 applic TP BID 04/21/18 Cetirizine HCl [Zyrtec 10 mg Tablet] 10 mg PO DAILY 01/02/20 Nitrofurantoin Monohyd/M-Cryst [Macrobid 100 mg Capsule] 100 mg PO BID 01/02/20 Ondansetron HCl [Zofran 8 mg Tablet] 8 mg PO Q8HP PRN 01/02/20 Oxycodone HCl/Acetaminophen [Percocet 7.5-325 mg Tablet] 1 tab PO Q8HP PRN 01/02/20 Polyethylene Glycol 3350 [Miralax Powder 17 gm/Packet] 17 gm PO DAILYP PRN 01/02/20 Allergies/Adverse Reactions: No Known Allergies Allergy (Verified 09/23/17 03:26) Review of Systems ROS unobtainable: Due to mental status Physical Exam Vital Signs: Temp Pulse Resp BP Pulse Ox 97.7 F 63 32 H 158/87 H 100 01/02/20 13:19 01/02/20 14:00 01/02/20 13:19 01/02/20 13:19 01/02/20 13:19 Intake & Output 01/01/20 01/02/20 01/03/20 06:59 06:59 06:59 Intake Total 2050 Output Total 650 Balance 1400 Weight 68.7 kg General appearance: PRESENT: no acute distress Eye exam: PRESENT: PERRLA Respiratory exam: PRESENT: clear to auscultation danitza Cardiovascular exam: PRESENT: +S1, +S2 GI/Abdominal exam: PRESENT: soft Neurological exam: PRESENT: alert Results Laboratory Results: 01/02/20 09:33 01/02/20 09:33 01/02/20 01/02/20 01/02/20 09:33 09:33 09:33 WBC 8.4 RBC 3.65 L Hgb 12.4 Hct 35.6 L MCV 97 MCH 33.9 H MCHC 34.9 RDW 14.6 H Plt Count 251 Seg Neutrophils % 47.6 Sodium 139.5 Potassium 4.0 Chloride 106 Carbon Dioxide 26 Anion Gap 8 BUN 17 Creatinine 0.70 Est GFR ( Amer) > 60 Glucose 86 Lactic Acid 0.9 Calcium 10.2 Total Bilirubin 0.4 AST 20 Alkaline Phosphatase 102 Total Protein 7.1 Albumin 3.7 Urine Color Urine Appearance Urine pH Ur Specific Ona Urine Protein Urine Glucose (UA) Urine Ketones Urine Blood Urine RBC (Auto) 01/02/20 01/02/20 01/02/20 09:33 15:49 18:17 WBC RBC Hgb Hct MCV MCH MCHC RDW Plt Count Seg Neutrophils % Sodium Potassium Chloride Carbon Dioxide Anion Gap BUN Creatinine Est GFR ( Amer) Glucose Lactic Acid 1.7 0.8 Calcium Total Bilirubin AST Alkaline Phosphatase Total Protein Albumin Urine Color YELLOW Urine Appearance CLEAR Urine pH 6.0 Ur Specific Ona 1.015 Urine Protein NEGATIVE Urine Glucose (UA) NEGATIVE Urine Ketones NEGATIVE Urine Blood MODERATE H Urine RBC (Auto) 9 01/02/20 01/02/20 18:17 18:17 Creatine Kinase 67 CK-MB (CK-2) 0.82 Impressions: Chest X-Ray 01/02/20 09:03 IMPRESSION: 1. Status post placement of right central line with the tip at the region of the caval atrial junction. No evidence of pneumothorax. 2. There is kinking of the central line at the level of the right supraclavicular fossa. Correlation suggested. 3. Stable left base scarring or atelectasis and chronic mild elevation of the left hemidiaphragm. No acute pulmonary findings. Assessment & Plan - Diagnosis (1) Aspiration pneumonia Qualifiers: Aspiration pneumonia type: unspecified Laterality: unspecified laterality Lung location: unspecified part of lung Qualified Code(s): J69.0 - Pneumonitis due to inhalation of food and vomit Is this a current diagnosis for this admission?: Yes Plan: Patient to be treated empirically with IV antibiotic (2) Dementia Qualifiers: Dementia type: Alzheimer's disease Alzheimer's disease onset: early-onset Dementia behavioral disturbance: with behavioral disturbance Qualified Code(s): G30.0 - Alzheimer's disease with early onset; F02.81 - Dementia in other diseases classified elsewhere with behavioral disturbance Is this a current diagnosis for this admission?: Yes
[2020-01-02] MEDS: OXYCODONE HCL IR 5 MG TABLET PO PRN (20:29)
[2020-01-02] MEDS: OXYCODONE-ACETAMINOPHEN 5-325 MG TABLET PO PRN (20:29)
[2020-01-02] MEDS: ALPRAZOLAM 0.5 MG TABLET PO PRN (20:31)
[2020-01-02] MEDS ORDERED: MIRTAZAPINE 15 MG TABLET PO SCH (22:00)
[2020-01-02] MEDS ORDERED: (PENDING PHARMACY ID) (Donepezil Hcl [Aricept] 10 MG) PO SCH (22:00)
[2020-01-02] MEDS ORDERED: DONEPEZIL HCL 5 MG TABLET PO SCH (22:00)
[2020-01-02 23:07] LABS: APPEARANCE,URINE CLEAR; BILIRUBIN,URINE NEGATIVE (NEGATIVE); COLOR,URINE YELLOW; GLUCOSE, URINE NEGATIVE (NEGATIVE); KETONES,URINE NEGATIVE (NEGATIVE); LEUKOCYTE ESTERASE,URINE NEGATIVE (NEGATIVE); NITRITE,URINE NEGATIVE (NEGATIVE); PROTEIN,URINE NEGATIVE (NEGATIVE); URINE SPECIFIC GRAVITY 1.017; UROBILINOGEN,URINE NEGATIVE mg/dL (<2.0)
--- NOTE | 2020-01-02 23:56 | EKG REPORT ---
SEVERITY:- ABNORMAL ECG - ATRIAL FIBRILLATION, V-RATE 75-88 IVCD, CONSIDER ATYPICAL LBBB BASELINE ARTIFACTS : Confirmed by: Derrell Yung 02-Jan-2020 23:56:01
[2020-01-03 05:20] LABS: ABSOLUTE BASOPHILS # (AUTO) 0.1 10^3/uL (0.0-0.2); ABSOLUTE EOSINOPHILS # (AUTO) 0.3 10^3/uL (0.0-0.6); ABSOLUTE LYMPHOCYTES (AUTO) 3.1 10^3/uL (0.5-4.7); ABSOLUTE MONOCYTES (AUTO) 0.7 10^3/uL (0.1-1.4); ABSOLUTE NEUT (AUTO) 5.6 10^3/uL (1.7-8.2); BASOPHILS % (AUTO) 0.9 % (0-2); EOSINOPHILS % (AUTO) 3.3 % (0-6); HEMATOCRIT 32.7 % (36.0-47.0); HEMOGLOBIN 11.5 g/dL (12.0-15.5); LYMPHOCYTES % (AUTO) 31.8 % (13-45); MEAN CORPUSCULAR HEMOGLOBIN 33.9 pg (27.0-33.4); MEAN CORPUSCULAR HGB CONC 35.1 g/dL (32.0-36.0); MEAN CORPUSCULAR VOLUME 97 fl (80-97); MONOCYTES % (AUTO) 6.9 % (3-13); PLATELET COUNT 211 10^3/uL (150-450); RED BLOOD COUNT 3.38 10^6/uL (3.72-5.28); RED CELL DISTRIBUTION WIDTH 14.3 % (11.5-14.0); SEGMENTED NEUTROPHILS % (AUTO) 57.1 % (42-78); TOTAL CELLS COUNTED % (AUTO) 100 %; WHITE BLOOD COUNT 9.8 10^3/uL (4.0-10.5)
[2020-01-03 05:41] LABS: ALKALINE PHOSPHATASE 84 U/L (38-126); ANION GAP 6 (5-19); ASPARTATE AMINO TRANSFERASE 16 U/L (14-36); BILIRUBIN,TOTAL 0.6 mg/dL (0.2-1.3); BLOOD UREA NITROGEN 8 mg/dL (7-20); CALCIUM 9.5 mg/dL (8.4-10.2); CARBON DIOXIDE 24 mmol/L (22-30); CHLORIDE 110 mmol/L (98-107); GLUCOSE 77 mg/dL (75-110); POTASSIUM 3.5 mmol/L (3.6-5.0); TOTAL PROTEIN 6.2 g/dL (6.3-8.2)
[2020-01-03] MEDS: AMPICILLIN SODIUM/SULBACTAM NA 3 GM in NORMAL SALINE 100 ML IV SCH ×2 (05:46→13:07)
[2020-01-03] MEDS: OXYCODONE HCL IR 5 MG TABLET PO PRN (08:21)
[2020-01-03] MEDS: OXYCODONE-ACETAMINOPHEN 5-325 MG TABLET PO PRN (08:21)
--- NOTE | 2020-01-03 12:05 | PDOC DISCHARGE SUMMARY ---
Impression - Admit/DC Date/PCP Admission Date/Primary Care Provider: 01/02/20 11:26 KEVIN BRANNON MD Discharge Date: 01/03/20 - Discharge Diagnosis (1) Aspiration pneumonia Is this a current diagnosis for this admission?: Yes (2) Dementia Is this a current diagnosis for this admission?: Yes (3) Sacral decubitus ulcer, stage II Is this a current diagnosis for this admission?: Yes - Additional Information Referrals: KEVIN BRANNON MD [Primary Care Provider] - 01/08/20 9:45 am Prescriptions: Levofloxacin [Levaquin 750 mg Tablet] 750 mg PO DAILY #10 tab Bismuth Tribromoph/Petrolatum [Xeroform Petrol 5"X9" Dressing] 1 bandage TP DAILY #90 pkg Home Medications: Alprazolam [Xanax 0.5 mg Tablet] 0.5 mg PO Q8HP PRN 09/23/17 Apixaban [Eliquis 2.5 mg Tablet] 2.5 mg PO BID 09/23/17 Metoprolol Succinate [Toprol Xl 50 mg Tab.sr] 50 mg PO DAILY 09/23/17 Mirtazapine [Remeron] 30 mg PO QHS 09/23/17 Diclofenac Sodium [Voltaren] 4 gm TP TIDP PRN 04/21/18 Donepezil HCl [Aricept] 10 mg PO QHS 04/21/18 Nystatin [Mycostatin Topical Powder 15 gm] 1 applic TP BID 04/21/18 Cetirizine HCl [Zyrtec 10 mg Tablet] 10 mg PO DAILY 01/02/20 Nitrofurantoin Monohyd/M-Cryst [Macrobid 100 mg Capsule] 100 mg PO BID 01/02/20 Ondansetron HCl [Zofran 8 mg Tablet] 8 mg PO Q8HP PRN 01/02/20 Oxycodone HCl/Acetaminophen [Percocet 7.5-325 mg Tablet] 1 tab PO Q8HP PRN 01/02/20 Polyethylene Glycol 3350 [Miralax Powder 17 gm/Packet] 17 gm PO DAILYP PRN 01/02/20 Bismuth Tribromoph/Petrolatum [Xeroform Petrol 5"X9" Dressing] 1 bandage TP DAILY #90 pkg 01/03/20 Levofloxacin [Levaquin 750 mg Tablet] 750 mg PO DAILY #10 tab 01/03/20 History of Present Illiness History of Present Illness: MAGDALENO NAVAS is a 84 year old female, She has very advanced dementia bedbound she was brought to the emergency room by her family about this morning for evaluation of altered mental status, the daughter apparently found the caffeine with foam around the mouth she supposedly sounding junky, in the emergency room she was evaluated, the hemogram was normal there was no white cell elevation, chest x-ray was normal there is no infiltrate she has no fever, she is not in any distress, because she coughed the emergency room physician felt patient needed to be admitted on COVID floor. I saw the patient today on the floor she is very stable I do not believe she needs to be on COVID floor because the p robability of this patient with coronavirus is 0 she has no manifestation that suggest COVID 19, the risk outweighed the benefit of having this patient on a dedicated floor for highly suspected COVID-19 patients and also there is insufficient PPE. Because the probability of COVID-19 is extremely low in this patient I thought patient could be transferred back to regular floor, she will empirically be treated with IV antibiotic for 24 hours she be discharged home tomorrow, it is to be noted because of the hospital policy patient's family is not able to be by her side. This is a patient with advanced dementia the daughter is the primary caregiver and she stays in the room with her at all times it is not in the patient's best interest to be hospitalized especially she is very stable she is stable enough to be discharged home in 24 hours. Patient status will be changed to observation Hospital Course Hospital Course: Patient was admitted for the management of aspiration pneumonia, she was admitted for observation, treated empirically with IV antibiotic Unasyn, she is also found to have sacral decubital ulcer stage II this was dressed with Xer oform gauze Physical Exam Vital Signs: Temp Pulse Resp BP Pulse Ox 98.8 F 77 16 134/58 H 97 01/03/20 07:51 01/03/20 08:16 01/03/20 08:16 01/03/20 07:51 01/03/20 08:16 Pulse Oximeter Continuous Start: 01/02/20 17:45 Freq: RTQ4 Status: Active Protocol: Document 01/03/20 08:16 HCR (Rec: 01/03/20 08:16 HCR [id number]) Pulse Oximetry Assessment Oxygen Saturation (92-100) 97 Oxygen Delivery Method Room Air Fraction of Inspired Oxygen (FIO2) 21 Equipment Usage Equipment in Use Continuous SpO2 Machine # 9 Intake & Output 01/02/20 01/03/20 01/04/20 06:59 06:59 06:59 Intake Total 2350 Output Total 1250 Balance 1100 Weight 70.8 kg General appearance: PRESENT: no acute distress Eye exam: PRESENT: PERRLA Respiratory exam: PRESENT: clear to auscultation danitza Cardiovascular exam: PRESENT: +S1, +S2 GI/Abdominal exam: PRESENT: soft Results Laboratory Results: WBC 9.8 10^3/uL (4.0-10.5) 01/03/20 04:55 RBC 3.38 10^6/uL (3.72-5.28) L 01/03/20 04:55 Hgb 11.5 g/dL (12.0-15.5) L 01/03/20 04:55 Hct 32.7 % (36.0-47.0) L 01/03/20 04:55 MCV 97 fl (80-97) 01/03/20 04:55 MCH 33.9 pg (27.0-33.4) H 01/03/20 04:55 MCHC 35.1 g/dL (32.0-36.0) 01/03/20 04:55 RDW 14.3 % (11.5-14.0) H 01/03/20 04:55 Plt Count 211 10^3/uL (150-450) 01/03/20 04:55 Lymph % (Auto) 31.8 % (13-45) 01/03/20 04:55 [place] % (Auto) 6.9 % (3-13) 01/03/20 04:55 Eos % (Auto) 3.3 % (0-6) 01/03/20 04:55 Baso % (Auto) 0.9 % (0-2) 01/03/20 04:55 Absolute Neuts (auto) 5.6 10^3/uL (1.7-8.2) 01/03/20 04:55 Absolute Lymphs (auto) 3.1 10^3/uL (0.5-4.7) 01/03/20 04:55 Absolute Monos (auto) 0.7 10^3/uL (0.1-1.4) 01/03/20 04:55 Absolute Eos (auto) 0.3 10^3/uL (0.0-0.6) 01/03/20 04:55 Absolute Basos (auto) 0.1 10^3/uL (0.0-0.2) 01/03/20 04:55 Seg Neutrophils % 57.1 % (42-78) 01/03/20 04:55 Sodium 139.7 mmol/L (137-145) 01/03/20 04:55 Potassium 3.5 mmol/L (3.6-5.0) L 01/03/20 04:55 Chloride 110 mmol/L (98-107) H 01/03/20 04:55 Carbon Dioxide 24 mmol/L (22-30) 01/03/20 04:55 Anion Gap 6 (5-19) 01/03/20 04:55 BUN 8 mg/dL (7-20) 01/03/20 04:55 Creatinine 0.52 mg/dL (0.52-1.25) 01/03/20 04:55 Est GFR ( Amer) > 60 (>60) 01/03/20 04:55 Est GFR (MDRD) Non-Af > 60 (>60) 01/03/20 04:55 Glucose 77 mg/dL (75-110) 01/03/20 04:55 Hemoglobin A1c % 4.9 % (4.7-6.0) 01/02/20 18:17 Lactic Acid 0.8 mmol/L (0.7-2.1) 01/02/20 18:17 Calcium 9.5 mg/dL (8.4-10.2) 01/03/20 04:55 Total Bilirubin 0.6 mg/dL (0.2-1.3) 01/03/20 04:55 Direct Bilirubin 0.0 mg/dL (0.0-0.4) 01/03/20 04:55 Neonat Total Bilirubin Not Reportable 01/03/20 04:55 Neonat Direct Bilirubin Not Reportable 01/03/20 04:55 Neonat Indirect Bili Not Reportable 01/03/20 04:55 AST 16 U/L (14-36) 01/03/20 04:55 ALT 14 U/L (<35) 01/03/20 04:55 Alkaline Phosphatase 84 U/L (38-126) 01/03/20 04:55 Creatine Kinase 67 U/L (30-135) 01/02/20 18:17 CK-MB (CK-2) 0.82 ng/mL (<4.55) 01/02/20 18:17 Total Protein 6.2 g/dL (6.3-8.2) L 01/03/20 04:55 Albumin 3.0 g/dL (3.5-5.0) L 01/03/20 04:55 Urine Color YELLOW 01/02/20 21:05 Urine Appearance CLEAR 01/02/20 21:05 Urine pH 6.0 (5.0-9.0) 01/02/20 21:05 Ur Specific [place] 1.017 01/02/20 21:05 Urine Protein NEGATIVE mg/dL (NEGATIVE) 01/02/20 21:05 Urine Glucose (UA) NEGATIVE mg/dL (NEGATIVE) 01/02/20 21:05 Urine Ketones NEGATIVE mg/dL (NEGATIVE) 01/02/20 21:05 Urine Blood MODERATE (NEGATIVE) H 01/02/20 21:05 Urine Nitrite NEGATIVE (NEGATIVE) 01/02/20 21:05 Urine Nitrite (Reflex) NEGATIVE (NEGATIVE) 01/02/20 09:33 Urine Bilirubin NEGATIVE (NEGATIVE) 01/02/20 21:05 Urine Urobilinogen NEGATIVE mg/dL (<2.0) 01/02/20 21:05 Ur Leukocyte Esterase NEGATIVE (NEGATIVE) 01/02/20 21:05 Leukocyte Esterase Rfl NEGATIVE (NEGATIVE) 01/02/20 09:33 Urine WBC (Auto) 5 /HPF 01/02/20 21:05 Urine RBC (Auto) 24 /HPF 01/02/20 21:05 Urine WBC (Reflex) 1 /HPF 01/02/20 09:33 Squamous Epi Cells Auto 1 /HPF 01/02/20 21:05 Urine Mucus (Auto) RARE /LPF 01/02/20 21:05 Urine Ascorbic Acid NEGATIVE (NEGATIVE) 01/02/20 21:05 COVID-19 Source Cancelled 01/02/20 10:18 COVID-19 Source Cancelled 01/02/20 10:18 COVID-19 (LILLIE) Cancelled 01/02/20 10:18 COVID-19 (LILLIE) Cancelled 01/02/20 10:18 Influenza A (Rapid) NEGATIVE (NEGATIVE) 01/02/20 10:30 Influenza B (Rapid) NEGATIVE (NEGATIVE) 01/02/20 10:30 01/02/20 18:17 CK-MB (CK-2) 0.82 Impressions: Chest X-Ray 01/02/20 09:03 IMPRESSION: 1. Status post placement of right central line with the tip at the region of the caval atrial junction. No evidence of pneumothorax. 2. There is kinking of the central line at the level of the right supraclavicular fossa. Correlation suggested. 3. Stable left base scarring or atelectasis and chronic mild elevation of the left hemidiaphragm. No acute pulmonary findings. Stroke Is this a Stroke Patient?: No Acute Heart Failure - Is this a Heart Failure Patient?: No
[2020-01-03] MEDS: CETIRIZINE 10 MG TABLET PO SCH (12:14)
[2020-01-03] MEDS: APIXABAN 2.5 MG TABLET PO SCH (12:14)
[2020-01-03] MEDS: METOPROLOL SUCCINATE 50 MG TAB.SR.24H PO SCH (12:14)
[2020-01-03] MEDS: CEFTRIAXONE 1 GM/D5W RTU 1 GM/50 ML RTUPB IV SCH (12:14)
[2020-01-03] MEDS: NYSTATIN TOPICAL POWDER 15 GM TP SCH (12:18)
[2020-01-03] MEDS: NITROFURANTOIN MONOHYD/M-CRYST 100 MG CAPSULE PO SCH (12:24)
[2020-01-03 14:39] VITALS: BP 161/75
[2020-01-03] MEDS: ALPRAZOLAM 0.5 MG TABLET PO PRN (14:57)
== END 2020-01-03 15:30 | disposition home or self-care (01) ==
LOC: ER 07:29 → EH 11:26 → INTOOBSV 11:26 → 5 13:18 → 4S 18:46
PROVIDERS: ADMIT Internal Medicine; ATTEND Internal Medicine
DX: J69.0 Pneumonitis due to inhalation of food and vomit (principal); G30.0 Alzheimer's disease with early onset; F02.81 Dementia in other diseases classified elsewhere, unspecified severity, with behavioral disturbance; L89.152 Pressure ulcer of sacral region, stage 2; M06.9 Rheumatoid arthritis, unspecified; E86.0 Dehydration; I48.91 Unspecified atrial fibrillation; Z79.899 Other long term (current) drug therapy; Z79.02 Long term (current) use of antithrombotics/antiplatelets; Z74.01 Bed confinement status; Z87.440 Personal history of urinary (tract) infections; Z86.19 Personal history of other infectious and parasitic diseases; Z11.59 Encounter for screening for other viral diseases
CPT/HCPCS: 36556; 76937; 99291; 96365; 36415 ×2; 87040; 82553; 82550; 83605; 85025 ×2; 87077; 80053 ×2; 81001; 83036; 87804; 87150 ×26; 71045; 93005; 93010; 94762 ×2; 92610; G0378 ×2; A9270 ×17; J0295 ×2; J7050 ×2; J7030; J7120; J0696 ×2; J3490; J8499